=== PATIENT | male | born 1960 | race Caucasian/White ===

== ENCOUNTER 2018-03-05 09:00 | Outpatient (RCR) | payer OTHER, SELFPAY ==
--- NOTE | 2018-01-24 11:51 | HP.PTEVAL ---
Patient's Visit Information LINDA HARRIS is a 57 year old M referred to Physical Therapy by Out of Town Doctor with a diagnosis of Ankle Fusion. Date of Evaluation: 01/24/18 Physical Therapist: Maria Teresa Lopez - Visit Plan Frequency: 2x /Week Duration: 4 Weeks Plan: Focus on propriocetion, strength and core s/s. - Subjective Subjective: Right ankle shattered it 30 years- Dr. Tucker fixed it. Surgery Oct 12- fused it- was in a cast for 6 weeks- non weight bearing- then into a boot non weight bearing until 8 weeks. Cheated before then but was released 01/17 to put weight on it. MD told him to be in [facility] and wear his $300.00 insoles. When sitting he is painfree but starts to ache after a long period of sitting. Has been on/off pain meds due to the ankle for years. Can be painfree with pain meds. Was on it a lot yesterday. 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 Goes back to see March 22. Pain is located throughout the entire foot. Describes pain as dull and achy but by the end of the day it can be hard to walk. N/T in the toes but it changes with swelling. Want so to push the foot and get it back to normal. Pain is the only limiting factor- MD told him to beat the hell out of it. Sleep: disturbed but doesn't wake up PMHx:HTN Meds: [place]arting, triglyde, tramadol and tylenol as needed - Objective Posture: good. Gait: antalgic- decreased stance on the right LE-poor heel/toe pattern. Girth: 55.5 cm fig 4-29 cm mall-23 cm mets. HR/TR: able but decreased TR. Balance: 5 sec then requires UE A. ROM: df: neutral, PF: 5 degrees, Ever: 20 degrees Inv: 30 degrees. Strength: 4+/5 throughout LE Core: fair - Goals Goal 1:: Patient will be I with HEP and progression Goal Time Frame: 4-6 Weeks Goal 2:: Patient will demo 30 sec SLS Goal Time Frame: 4-6 Weeks Goal 3:: Patient will report 2/10 pain for 1 week Goal Time Frame: 4-6 Weeks Goal 4:: Patient will demo 5/5 strength in LE Goal Time Frame: 4-6 Weeks - Rehabilitation Potential Physical Therapy Diagnosis: Patient presents with hypomobility- he has decreased ROM, strength and muscular endurance leading to poor balance and incresaed pain with ADL's. Rehabilitation Potential: Good - Anticipated Interventions Patient/Client Instruction: Educate patient on: Benefits of Fitness Program For the Purpose of:: To improve muscle performance and motor function Therapeutic Exercise to Include: Strength training, Balance training, Agility training, Body mechanics, Postural training, Flexibilty training, Gait and locomotor training, Dynamic Lumbar Stabilization For the Purpose of:: To improve muscle performance and motor function Thank you for the opportunity to evaluate your patient. For Medicare and Medicare HMO plans, please review the plan of care and approve it. It will need to be FAXED BACK to us at [phone] for Medicare purposes. Please let me know if there are questions or concerns regarding this plan of care. Physician Signature: Date:
--- NOTE | 2018-02-21 11:00 | HP.PTREVAL_ITS ---
Out of Town Doctor, It has been my pleasure to treat LINDA HARRIS over the last 8 visits for Ankle Fusion. Please see the progress note below for an update on the physical therapy plan of care! Subjective: Patient reports that the ankle is getting better but its still not there yet. He feels hs ie 50-60% better. He is still challenged with every day activities such as going down stairs. He does them one at a time. He goes back to the MD March 21. He feels that he needs to get stronger in the ankle/ foot. Objective/Function: Posture: good. Gait: antalgic- decreased stance on the right LE-poor heel/toe pattern. Stairs: asc is able to perform reciprocally- with 1 HR- does use mild UE A. Desc he can do reciprocally but his technique is poor- descends without control with 2 UE- HR/TR: able but decreased TR- weight shifts to the left. Balance: 10 sec then requires UE A. ROM: df: 2 degrees, PF: 10 degrees, Ever: 20 degrees Inv: 30 degrees. Strength: 4+/5 throughout LE Core: fair Plan Plan: Continue with POC Goals Goal 1:: Patient will be I with HEP and progression Goal Time Frame: 4-6 Weeks Goal Progress: Progressing Goal 2:: Patient will demo 30 sec SLS Goal Time Frame: 4-6 Weeks Goal Progress: Progressing Goal 3:: Patient will report 2/10 pain for 1 week Goal Time Frame: 4-6 Weeks Goal Progress: Progressing Goal 4:: Patient will demo 5/5 strength in LE Goal Time Frame: 4-6 Weeks Goal Progress: Progressing Anticipated Interventions Patient/Client Instruction: Educate patient on: Benefits of Fitness Program For the Purpose of:: To improve muscle performance and motor function Therapeutic Exercise to Include: Strength training, Balance training, Agility training, Body mechanics, Postural training, Flexibilty training, Gait and locomotor training, Dynamic Lumbar Stabilization For the Purpose of:: To improve muscle performance and motor function Please do not hesitate to contact me at [phone] by phone or Fax: if you have questions or concerns regarding this new plan of care! Sincerely, Maria Teresa Lopez
--- NOTE | 2018-05-22 10:48 | HP.PT.NRP ---
HP - Discharge Summary (1) - Patient Information LINDA HARRIS was seen in my office for initial evaluation on 01/24/18. The following Plan of Care was established for this patient: Initial Frequency: 2x /Week Initial Duration: 4 Weeks - Anticipated Interventions Patient/Client Instruction: Educate patient on: Benefits of Fitness Program For the Purpose of:: To improve muscle performance and motor function Therapeutic Exercise to Include: Strength training, Balance training, Agility training, Body mechanics, Postural training, Flexibilty training, Gait and locomotor training, Dynamic Lumbar Stabilization For the Purpose of:: To improve muscle performance and motor function This patient was last seen in our office . Pertinent comments regarding their Physical therapy will appear below: Patient has returned to work- Patient has not attended physical therapy in over 8 weeks. At this time patient is appropriate for d/c and return to MD as needed. At this point I will be discontinuing this patient from physical therapy. I would be happy to see this patient again in the future if found appropriate by the physician. Thank you! Maria Teresa Lopez
== END 2018-03-05 19:00 | disposition home or self-care (01) ==
LOC: PT 09:00
PROVIDERS: Family Provider Family Medicine; PCP Family Medicine
DX: M25.371 Other instability, right ankle (principal); M84.361D Stress fracture, right tibia, subsequent encounter for fracture with routine healing; M19.071 Primary osteoarthritis, right ankle and foot; T84.498D Other mechanical complication of other internal orthopedic devices, implants and grafts, subsequent encounter
CPT/HCPCS: 97110; 97162; 97164

== ENCOUNTER → 2018-07-24 15:08 | Outpatient (CLI) | payer OTHER, SELFPAY ==
[2018-07-24 16:33] LABS: PSA,Total- Diagnostic 3.85 ng/mL (0.0-4.0)
--- OUTSIDE RECORDS SUMMARY | 2018-09-19 07:41 | XMS RPT_ITS ---
:1960 Author Organization OHIP Care Team Providers Name Role Phone ALFONSO EMERSON Attending Unavailable ALFONSO EMERSON Referring Unavailable ALFONSO EMERSON Attending Unavailable ALFONSO EMERSON Referring Unavailable ALFONSO EMERSON Referring Unavailable ALFONSO EMERSON Referring Unavailable ALFONSO EMERSON Referring Unavailable FLOYD DARNELL Referring Unavailable ALFONSO EMERSON Attending Unavailable ALFONSO EMERSON Referring Unavailable CARLI CHILDS (DUST COLLECTOR) Attending Unavailable ALFONSO EMERSON Referring Unavailable CRYSTAL DAVIS Admitting Unavailable CRYSTAL DAVIS Attending Unavailable CARLI CHILDS (DUST COLLECTOR) Referring Unavailable ALFONSO EMERSON Attending Unavailable ALFONSO EMERSON Referring Unavailable CARLI CHILDS (DUST COLLECTOR) Referring Unavailable SHELLI MORENO (PT) Attending Unavailable Samuel BARKLEY (PA-C) Referring Unavailable FLOYD DARNELL Attending Unavailable FLOYD DARNELL Referring Unavailable ALFONSO EMERSON Primary Care Unavailable DOCTOR, OUT OF TOWN Attending Unavailable Alfonso Emerson Primary Care Unavailable BEVERLY REES Referring Unavailable Nghia Stoddard Attending Unavailable Alfonso Emerson Primary Care Unavailable Nghia Stoddard Referring Unavailable PROBLEMS PROBLEMS DATE TYPE CONDITION / CODE ATTENDING STATUS SOURCE Unknown R97.20 - Elevated Richi Nghia Active [facility] 8 prostate specific [facility] antigen [PSA] / Hospital R97.20(ICD-10) Repository Active Mixed hyperlipidemia / NA Active [facility] E78.2(ICD-10) Clinic Main [place] Repository Active Nocturia / NA Active [facility] R35.1(ICD-10) Clinic Main [place] Repository Active Encounter for NA Active [facility] screening for other Clinic Main viral diseases / [place] Z11.59(ICD-10) Repository Active Low back pain / NA Active [facility] M54.5(ICD-10) Clinic Main [place] Repository Active Change in bowel habit SUSAN Active [facility] / R19.4(ICD-10) CRYSTAL [facility] Main [place] Repository Unknown M25.371 - Other DOCTOR, OUT OF Active [facility] 8 instability, right TOWN Community ankle / Hospital M25.371(ICD-10) Repository Active Chronic kidney NA Active [facility] 8 disease, stage 3 Clinic Main (moderate) / [place] N18.3(ICD-10) Repository Active Disorder of kidney and NA Active [facility] 8 ureter, unspecified / Clinic Main N28.9(ICD-10) [place] Repository Active Contact with and NA Active [facility] 8 (suspected) exposure Clinic Main to asbestos / [place] Z77.090(ICD-10) Repository Active Essential (primary) NA Active [facility] hypertension / Clinic Main I10(ICD-10) [place] Repository Admitting Other instability, BERLET, Active [place] [address] diagnosis right ankle / [place] Repository M25.371(ICD-10) [place] Active Cervicalgia / SHELLI MORENO Active [facility] 7 M54.2(ICD-10) (PT) Clinic Main [place] Repository Active Unspecified SHELLI MORENO Active [facility] 7 temporomandibular (PT) Clinic Main joint disorder, [place] unspecified side / Repository M26.609(ICD-10) PROCEDURES PROCEDURES No Procedure Records FoundRESULTS RESULTS PSA,TOTAL- DIAGNOSTIC Collected: 07/24/2018 Status: F Source: [place] 3:[address] [facility] REPOSITORY TYPE CODE TESTS RESULT OUT OF RANGE REFERENCE UNITS LAB L501.9940 0.0-4.0 ng/mL PSA, Normal DIAGNOSTIC 3.85 Result Comment: This test was performed using the TPSA assay method for the [employer] chemistry system. Values obtained with different assay methods cannot be used interchangably. When changing PSA assays in the course of monitoring a patient, additional sequential testing should be carried out to confirm baseline values. Performed By: #### L501.9940 #### [facility] [address] [place], [address] COMP METABOLIC PANEL Collected: 06/15/2018 Status: F Source: [place] 7:39 AM [facility] REPOSITORY TYPE CODE TESTS RESULT OUT OF REFERENCE UNITS RANGE LAB TP 6.3-8.0 g/dL Protein, Total 7.1 LAB ALB 3.9-4.9 g/dL Albumin 4.6 LAB CA 8.5-10.2 mg/dL Calcium, Total 9.5 LAB TBIL 0.2-1.3 mg/dL Bilirubin, Total 0.9 LAB ALKP 38-113 U/L Alkaline Phosphatase 39 LAB AST 14-40 U/L AST 19 LAB GLU 74-99 mg/dL Glucose 99 Result Comment: The [place] Diabetes Association (ADA) provides guidance for cutoff values for fasting glucose and random glucose. The ADA defines fasting as no caloric intake for at least 8 hours. Fas ting plasma glucose results between 100 to 125 mg/dL indicate increased risk for diabetes (prediabetes). Fasting plasma glucose results greater than or equal to 126 mg/dL meet the criteria for diagnosis of diabetes. In the absence of unequivocal hyperglycemia, results should be confirmed by repeat testing. In a patient with classic symptoms of hyperglycemia or hyperglycemic crisis, random plasma glucose results greater than or equal to 200 mg/dL meet the criteria for diagnosis of diabetes. Reference: Standards of Medical Care in Diabetes 2016, [place] Diabetes Association. Diabetes Care. 2016.39(Suppl 1). LAB BUN 9-24 mg/dL BUN 20 LAB CRET 0.73-1.22 mg/dL Creatinine 1.18 LAB NA 136-144 mmol/L Sodium 143 LAB K 3.7-5.1 mmol/L Potassium 4.0 LAB CL 97-105 mmol/L Chloride 105 LAB CO2 22-30 mmol/L CO2 26 LAB AGAP 9-18 mmol/L Anion Gap 12 LAB ALT 10-54 U/L ALT 22 LAB GFRAA eGFR- Amer. >60 LAB GFRNAA . eGFR-All Other Races >60 Result Comment: eGFR (Estimated GFR) Units of measure: mL/min/1.73 meters squared eGFR is derived from the reexpressed MDRD Study equation using the following parameters: serum creatinine, age, gender and race. The creatinine assay has been calibrated to be traceable to IDMS. An eGFR <60 mL/min/1.73m2 for >3 months is consistent with chronic kidney disease. Refer to KDOQI guidelines for clinical interpretation. In patients with unstable renal function, e.g. those with acute kidney injury, the eGFR may not accurately reflect actual GFR. Performed By: #### CMP, LIPB, TSH, PSA, AHCV #### [facility] [address] [place], [place] [address] LIPID PANEL, BASIC Collected: 06/15/2018 Status: F Source: [place] 7:39 AM [facility] REPOSITORY TYPE CODE TESTS RESULT OUT OF REFERENCE UNITS RANGE LAB CHOL <200 mg/dL Cholesterol High 213 Result Comment: <200 mg/dL, Desirable 200-239 mg/dL, Borderline high >239 mg/dL, High LAB TRIGLY <150 mg/dL Triglyceride 148 Result Comment: <150 mg/dL, Normal 150-199 mg/dL, Borderline high 200-499 mg/dL, High >499 mg/dL, Very high LAB HDL >39 mg/dL HDL-Cholesterol 43 Result Comment: 40-59 mg/dL, Acceptable >59 mg/dL, High: Negative risk factor for coronary heart disease <40 mg/dL, Low: Positive risk factor for coronary heart disease LAB LDL <100 mg/dL LDL-Cholesterol High 140 Result Comment: <100 mg/dL, Optimal 100-129 mg/dL, Near optimal/above optimal 130-159 mg/dL, Borderline high 160-189 mg/dL, High >189 mg/dL, Very high Secondary prevention optimal LDL Cholesterol levels are recommended to be < 70 mg/dL LAB NONHDL <130 mg/dL Non HDL High Cholesterol 170 Result Comment: <130 mg/dL, Optimal 130-159 mg/dL, Near optimal/above optimal 160-189 mg/dL, Borderline high 190-219 mg/dL, High >219 mg/dL, Very high Secondary prevention optimal non HDL Cholesterol levels are recommended to be < 100 mg/dL LAB FT hrs Fasting Time 12 LAB VLDL <30 mg/dL High VLDL Cholesterol 30 LAB TCHDL <5.10 TC:HDL Ratio 4.95 LAB LDLHDL <2.54 High LDL:HDL Ratio 3.26 Result Comment: Reference: 1. National Cholesterol Education Program ATP III Guideline At-A-Glance Quick Desk Reference: National Heart, Lung, and Blood [place]. National Institutes of Health. 2001: NIH Publication No. 01-3305. 2. An International Atherosclerosis Society position paper: global recommendations for the management of dyslipidemia: executive summary, Atherosclerosis. 2014: 232(2):410-413. Performed By: #### CMP, LIPB, TSH, PSA, AHCV #### [facility] [address] [place] [address] TSH Collected: 06/15/2018 Status: F Source: [place] 7:39 AM [facility] REPOSITORY TYPE CODE TESTS RESULT OUT OF RANGE REFERENCE UNITS LAB TSH 0.400-5.500 uU/mL TSH 1.630 Performed By: #### CMP, LIPB, TSH, PSA, AHCV #### [facility] [address] [place] [address] PSA, DIAGNOSTIC Collected: 06/15/2018 Status: F Source: [place] 7:39 AM [facility] REPOSITORY TYPE CODE TESTS RESULT OUT OF REFERENCE UNITS RANGE LAB PSA 0.00-2.59 ng/mL PSA, High Diagnostic 4.59 Result Comment: Total PSA test methodology used is the Electrochemiluminescence Immunoassay. For an individual patient, the significance of a PSA level should be interpreted in a broad clinical context, including age, race, family history, digital rectal exam, prostate size, results of prior te sting (prostate biopsy, free PSA, PCA3), and use of 5-alpha reductase inhibitors. Considering the high incidence of asymptomatic cancer in the general population that may not pose an ultimate risk to a patient, the decision to recommend urological evaluation or prostate biopsy should be individualized after consideration of all these factors. REFERENCE: Pako Holguin M.D., M.P.H., Johnnie Carter M.D., Ph.D., Alfonso Tillman M.D., Karla Zayas M.P.H., Michelle Arias, ScWanderD. Effect of Verification Bias on Screening for Prostate Cancer by Measurement of Prostatic Specific Antigen. N Engl J Med 2003,349:335-42. Performed By: #### CMP, LIPB, TSH, PSA, AHCV #### [facility] [employer] [address], [place] [address] HEPATITIS C AB IA Collected: 06/15/2018 Status: F Source: [place] 7:39 AM [facility] REPOSITORY TYPE CODE TESTS RESULT OUT OF REFERENCE UNITS RANGE LAB AHCV Negative Hepatitis C Ab Negative IA Performed By: #### CMP, LIPB, TSH, PSA, AHCV #### [facility] [employer] [address] [place], [place] [address] XR LUMBAR 3V Observed: 05/18/2018 Status: F Source: [place] AP/LAT/L5-S1 9:30 AM [facility] REPOSITORY * * *Final Report* * * DATE OF EXAM: May 18 2018 9:30AM WOX [id number] - XR LUMBAR 3V AP/LAT/L5-S1 / PROCEDURE REASON: Low back pain * * * * Physician Interpretation * * * * Clinical information: Low back pain AP and lateral views of the lumbar spine were obtained. No fracture is identified. Alignment is satisfactory. Vertebral body heights are maintained. Mild disc space narrowing at L4-5 and L5-S1. Minimal multilevel spurring most pronounced within the lower lumbar spine. Facet hypertrophy of the lower dorsal spine. No lytic or blastic lesions are seen. IMPRESSION: Mild degenerative changes of the lower lumbar spine. Wire Brusher: [place] Transcribe Date/Time: May 18 2018 2:45P Dictated by : EMMANUEL HESTER MD This examination was interpreted and the report reviewed and electronically signed by: EMMANUEL HESTER MD on May 18 2018 2:45PM EST [id number] Observed: 05/18/2018 Status: COMPLETED Source: [place] 9:21 AM [facility] [place] REPOSITORY HNO ID: [id number] Author: Suzette Hicks (Rt) Eamon Mott Service: (none) Author Type: Mold Closer Type: Progress Notes Filed: 05/18/2018 9:30 AM Note Text: Radiology Service Progress Note PATIENT NAME: Linda Harris DATE OF SERVICE: May 18, 2018 TIME: 9:21 AM PATIENT IDENTITY VERIFICATION COMPLETED USING TWO (2) METHODS: Patient confirmed name verbally and Date of . PATIENT GENDER DATA: Male PATIENT RELEVANT IMPLANT DATA REVIEWED: Not Applicable RADIOLOGY DEPARTMENT: General X-ray: Exam(s) Completed: Spine X-Ray(s): Lumbar AP / LAT / L5-S1 PERIPHERAL IV DATA: Not applicable SIGNED BY: RT Shazia May 18, 2018 9:21 AM PROGRESS Observed: 05/18/2018 Status: COMPLETED Source: [place] 8:44 AM [facility] REPOSITORY HNO ID: [id number] Author: Alfonso Emerson Service: (none) Author Type: Physician Type: Progress Notes Filed: 05/18/2018 9:53 AM Note Text: Patient presents with: Back Pain Knee Pain: left HPI: Patient presents today for office visit for an acute visit. Nursing Notes: Ana Ash Ma 05/18/2018 8:25 AM Signed Patient complains of: back pain . 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 Has been more active. No radiation of symptoms down the leg. Hurts to sit for a long time etc. No numbness or weakness. Has been doing back exercises. No issues controlling bowel or bladder. His ankle is doing better. Also complains of left knee pain. Still popping. May want to consider seeing ortho down the road. Has been there at least a year. HYPERTENSION:bp is slightly up today. HLD:no myalgias. CKD:better on last recheck. MEDICATIONS: Current Outpatient Prescriptions: gabapentin (NEURONTIN) 100 mg capsule Take 1-3 capsules by mouth at bedtime as needed (pain) for up to 60 days. traMADol (ULTRAM) 50 mg tablet Take 50 mg by mouth every 6 hours as needed. fenofibrate nanocrystallized (TRICOR) 145 mg tablet TAKE 1 TABLET DAILY losartan-hydrochlorothiazide (HYZAAR) 50-12.5 mg per tablet TAKE 1 TABLET DAILY No current facility-administered medications for this visit. ALLERGIES: ALLERGIES No Known Allergies PAST MEDICAL HISTORY Diagnosis Date - Acute gastritis without mention of hemorrhage - Ankle pain, right crush injury right ankle with complex tib-fib fracture: chronic pain - Back pain intermittent low back pain - Benign neoplasm of colon - Esophagitis no symptoms s/p dilitation - History of esophageal stricture 11/24/2008 - Hyperlipidemia - Hypertension with white coat effect - Panic attack heart racing, negative stress test 08/04 PAST SURGICAL HISTORY Procedure Laterality Date - ANKLE SURGERY HX 10/12/2017 - COLONOSCOP W/ OR W/O [facility] SPEC 11/24/08 hyperplastic polyp, repeat due 2018 - COLONOSCOP W/ OR W/O [facility] SPEC 03/13/2018 two small adenomatous polyps, repeat in 5 years - EGD W/O OR W/BRUSH/WASH 10/29/01 EGD - ESOPH W/O [facility] SPEC BALLOON DIL 11/24/08 EGD stricture dilated - OPEN RX ANKLE DISLOCATN+FIXATN 1987 ORIF Ankle right - PAST SURGICAL HISTORY OF 11/26 excision = pyogenic granuloma - PAST SURGICAL 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 Two children from first marriage. Lives with girlfriend. Rides dirt bike, jet ski, sprint cars. Reviewed current medications, allergies, past medical history, surgical history, family history and social history today. REVIEW OF SYSTEMS All other reviewed and negative other than HPI. HEALTH MAINTENANCE: Reviewed health maintenance issues today and recommended the following in detail. Getting flu shot at work. VITALS: BP 138/86 Pulse 88 Resp 20 Last 4 Encounter Wt Readings: Date: Wt: 03/02/2018 88 kg (194 lb 0.1 oz) 03/02/2018 88 kg (194 lb) 02/07/2018 87.5 kg (193 lb) 09/28/2017 91.2 kg (201 lb) PHYSICAL EXAMINATION: General appearance: Well appearing, alert, in no acute distress, well-hydrated, well nourished. Skin: Skin color, texture, turgor normal, no suspicious rashes or lesions BACK: Normal curvature of spine. No spine tenderness. Straight leg test negative. Deep tendon reflexes 2+/4 at patellas. Normal lower extremity strength. Lungs: Lungs clear to auscultation. No wheezing, rhonchi, rales Heart: RRR without murmur, gallop, or rubs. No ectopy Extremities: No deformities, edema, skin discoloration, clubbing or cyanosis. Good capillary refill. Musculoskeletal: No joint swelling, deformity, or tenderness Peripheral pulses: Normal Knee: no effusion. No instability. Some crepitus of left knee. No redness or warmth. ASSESSMENT/PLAN: 1. Lumbar pain - ICD9: 724.2, ICD10: M54.5 (primary diagnosis) Mechanical low back pain - Patient given instructions use of medications as ordered and avoiding opiates - Follow up in 1 weeks or sooner if symptoms persist or worsen - XR LUMBAR GENERAL 3V AP/LAT/L5-S1 - PREDNISONE 10 MG TABLET - TIZANIDINE 4 MG TABLET 2. Essential hypertension - ICD9: 401.9, ICD10: I10 - good control - Continue current medication(s) - Encouraged dietary sodium restriction/DASH diet - Goal of BP <140/90 3. Mixed hyperlipidemia - ICD9: 272.2, ICD10: E78.2 - to be determined upon return of lab results - Continue current medication. - COMP METABOLIC PANEL - LIPID PANEL BASIC 4. Acute pain of left knee - ICD9: 719.46, ICD10: M25.562 - wants to wait to address. See if steroids help 5. Need for hepatitis C screening test - ICD9: V73.89, ICD10: Z11.59 - HEP C AB [place] BLOOD 6. Nocturia - ICD9: 788.43, ICD10: R35.1 - will recheck psa. Discussed risks and benefits. Had previously been referred to urology - PSA/PROSTSPECAG DIAG Alfonso Emerson MD RTO in six months and prnWander SCOTT Observed: 05/18/2018 Status: COMPLETED Source: [place] 8:20 AM [facility] REPOSITORY Office Visit (FAMPWS) LINDA HARRIS ([id number]) 1960 M Date Time Provider Department 05/18/18 8:20 AM [facility] During your visit today, we recorded the following information about you: Pulse Respiration Blood pressure 88/minute 20/minute 138/86 Ana Ash Ma 05/18/2018 8:25 AM Signed Patient complains of: back pain . 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 Nursing Notes: Ana Ash Ma 05/18/2018 8:25 AM Signed Patient complains of: back pain . 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 Has been more active. No radiation of symptoms down the leg. Hurts to sit for a long time etc. No numbness or weakness. Has been doing back exercises. No issues controlling bowel or bladder. His ankle is doing better. Also complains of left knee pain. Still popping. May want to consider seeing ortho down the road. Has been there at least a year. HYPERTENSION:bp is slightly up today. HLD:no myalgias. CKD:better on last recheck. MEDICATIONS: Current Outpatient Prescriptions: gabapentin (NEURONTIN) 100 mg capsule Take 1-3 capsules by mouth at bedtime as needed (pain) for up to 60 days. traMADol (ULTRAM) 50 mg tablet Take 50 mg by mouth every 6 hours as needed. fenofibrate nanocrystallized (TRICOR) 145 mg tablet TAKE 1 TABLET DAILY losartan-hydrochlorothiazide (HYZAAR) 50-12.5 mg per tablet TAKE 1 TABLET DAILY No current facility-administered medications for this visit. ALLERGIES: ALLERGIES No Known Allergies PAST MEDICAL HISTORY Diagnosis Date - Acute gastritis without mention of hemorrhage - Ankle pain, right crush injury right ankle with complex tib-fib fracture: chronic pain - Back pain intermittent low back pain - Benign neoplasm of colon - Esophagitis no symptoms s/p dilitation - History of esophageal stricture 11/24/2008 - Hyperlipidemia - Hypertension with white coat effect - Panic attack heart racing, negative stress test 08/04 PAST SURGICAL HISTORY Procedure Laterality Date - ANKLE SURGERY HX 10/12/2017 - COLONOSCOP W/ OR W/O [facility] SPEC 11/24/08 hyperplastic polyp, repeat due 2018 - COLONOSCOP W/ OR W/O [facility] SPEC 03/13/2018 two small adenomatous polyps, repeat in 5 years - EGD W/O OR W/BRUSH/WASH 10/29/01 EGD - ESOPH W/O [facility] SPEC BALLOON DIL 11/24/08 EGD stricture dilated - OPEN RX ANKLE DISLOCATN+FIXATN 1987 ORIF Ankle right - PAST SURGICAL HISTORY OF 11/26 excision = pyogenic granuloma - PAST SURGICAL HISTORY 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 Two children from first marriage. Lives with girlfriend. Rides dirt bike, jet ski, sprint cars. Reviewed current medications, allergies, past medical history, surgical history, family history and social history today. REVIEW OF SYSTEMS All other reviewed and negative other than HPI. HEALTH MAINTENANCE: Reviewed health maintenance issues today and recommended the following in detail. Getting flu shot at work. VITALS: BP 138/86 Pulse 88 Resp 20 Last 4 Encounter Wt Readings: Date: Wt: 03/02/2018 88 kg (194 lb 0.1 oz) 03/02/2018 88 kg (194 lb) 02/07/2018 87.5 kg (193 lb) 09/28/2017 91.2 kg (201 lb) PHYSICAL EXAMINATION: General appearance: Well appearing, alert, in no acute distress, well-hydrated, well nourished. Skin: Skin color, texture, turgor normal, no suspicious rashes or lesions BACK: Normal curvature of spine. No spine tenderness. Straight leg test negative. Deep tendon reflexes 2+/4 at patellas. Normal lower extremity strength. Lungs: Lungs clear to auscultation. No wheezing, rhonchi, rales Heart: RRR without murmur, gallop, or rubs. No ectopy Extremities: No deformities, edema, skin discoloration, clubbing or cyanosis. Good capillary refill. Musculoskeletal: No joint swelling, deformity, or tenderness Peripheral pulses: Normal Knee: no effusion. No instability. Some crepitus of left knee. No redness or warmth. ASSESSMENT/PLAN: 1. Lumbar pain - ICD9: 724.2, ICD10: M54.5 (primary diagnosis) Mechanical low back pain - Patient given instructions use of medications as ordered and avoiding opiates - Follow up in 1 weeks or sooner if symptoms persist or worsen - XR LUMBAR GENERAL 3V AP/LAT/L5-S1 - PREDNISONE 10 MG TABLET - TIZANIDINE 4 MG TABLET 2. Essential hypertension - ICD9: 401.9, ICD10: I10 - good control - Continue current medication(s) - Encouraged dietary sodium restriction/DASH diet - Goal of BP <140/90 3. Mixed hyperlipidemia - ICD9: 272.2, ICD10: E78.2 - to be determined upon return of lab results - Continue current medication. - COMP METABOLIC PANEL - LIPID PANEL BASIC 4. Acute pain of left knee - ICD9: 719.46, ICD10: M25.562 - wants to wait to address. See if steroids help 5. Need for hepatitis C screening test - ICD9: V73.89, ICD10: Z11.59 - HEP C AB [place] BLOOD 6. Nocturia - ICD9: 788.43, ICD10: R35.1 - will recheck psa. Discussed risks and benefits. Had previously been referred to urology - PSA/PROSTSPECAG DIAG Alfonso Emerson MD RTO in six months and prn. Alfonso Emerson MD 05/18/2018 9:08 AM Signed Please report to the lab fasting at your convenience and have the labs that were ordered today during your visit. You will be contacted either by a letter, a call from a staff member or by my chart once we have had the chance to review your results. Please call us in one week after having them drawn if you have not heard from us. Referring Provider: SELF [[id number]] Allergies As of Date: 05/18/2018 (No Known Allergies) Date Reviewed: 03/13/2018 Reviewed by: Amelia Field) LENA Quintero - Fully Assessed Reason for Visit: Back Pain [12] Knee Pain [132] Cmt: left Reason For Visit History Recorded Primary Visit Diagnosis:Lumbar pain [M54.5] Other Visit Diagnoses:Essential hypertension [I10] Mixed hyperlipidemia [E78.2] Acute pain of left knee [M25.562] Need for hepatitis C screening test [Z11.59] Nocturia [R35.1] Order(s):PSA/PROSTSPECAG DIAG [SQPSA] Order #: [id number] FUTURE COMP METABOLIC PANEL [SQCMP] Order #: [id number] FUTURE LIPID PANEL BASIC [SQLIPB] Order #: [id number] FUTURE HEP C AB IA BLOOD [SQAHCV] Order #: [id number] FUTURE XR LUMBAR GENERAL 3V AP/LAT/L5-S1 [6307783] Order #: [id number] FUTURE predniSONE (DELTASONE) 10 mg tabletTake 4 tabs daily x 3 days, then 3 tabs x 3 days, 2 tabs x 3 days, then 1 tab x3 days with food.Disp: 30 tabletRfl: 0 tiZANidine (ZANAFLEX) 4 mg tabletTake 1 tablet by mouth every 6 hours as needed.Disp: 10 tabletRfl: 0 Prescriptions as of 05/18/2018 Sig: PREDNISONE 10 MG TABLET Take 4 tabs daily x 3 days, t* TIZANIDINE 4 MG TABLET Take 1 tablet by mouth every * GABAPENTIN 100 MG CAPSULE Take 1-3 capsules by mouth at* TRAMADOL 50 MG TABLET Take 50 mg by mouth every 6 h* FENOFIBRATE NANOCRYSTALLIZED * TAKE 1 TABLET DAILY LOSARTAN 50 MG-HYDROCHLOROTHI* TAKE 1 TABLET DAILY Problem List As Of Date 05/18/2018 Noted Resolved Anxiety state, unspecified [F41.1] INVALID FOR* Asbestos exposure [Z77.090] INVALID FOR* More... Sciatica [M54.30] INVALID FOR* Mixed hyperlipidemia [E78.2] INVALID FOR* ELEV BL PRES W/O HYPERTN [R03.0] INVALID FOR*08/26/2008 SPLENIC NODULE [D73.9] INVALID FOR* More... Chest pain, unspecified [R07.9] INVALID FOR*09/28/2017 More... PAIN JOINT, ANKLE [M25.579] INVALID FOR*04/16/2015 HYPERTENSION NOS [I10] INVALID FOR*01/17/2009 Special screening for malignant neoplasms, colo*INVALID FOR*09/28/2017 Benign neoplasm of colon [D12.6] INVALID FOR* Congenital tracheoesophageal fistula, esophagea*INVALID FOR* Elevated Blood Pressure Reading without Diagnos*INVALID FOR*07/18/2009 Hypertension [I10] INVALID FOR* More... Prepatellar bursitis [M70.40] INVALID FOR*07/10/2010 Routine physical examination [Z00.00] INVALID FOR*10/12/2015 CRI (chronic renal insufficiency) [N18.9] INVALID FOR*01/14/2011 Narcotic addiction [F11.20] INVALID FOR*04/01/2011 Panic attack [F41.0] Prostatitis [N41.9] INVALID FOR* BPH (benign prostatic hyperplasia) [N40.0] INVALID FOR* Pain of male genitalia [N50.89] INVALID FOR* Arthralgia [M25.50] INVALID FOR* Ankle pain, right [M25.571] INVALID FOR* More... 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 Other instructions from your clinician: Please report to the lab fasting at your convenience and have the labs that were ordered today during your visit. You will be contacted either by a letter, a call from a staff member or by my chart once we have had the chance to review your results. Please call us in one week after having them drawn if you have not heard from us. Visit Notes: >> Ana Ash Cheryl MonMay 18, 2018 8:18 AM Status: Signed Patient complains of: back pain . 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 TIZANIDINE 4 MG TABLET 10 t* 0 05/18/2018 Route: ORAL Sig: Take 1 tablet by mouth every 6 hours as needed. Disposition: Return in about 6 months (around 11/15/2018). Follow-up and Disposition History Recorded Letter Text Alfonso Emerson MD [address], [place] [address] 05/18/2018 TO WHOM IT MAY CONCERN: This is to confirm that Linda Harris had an appointment and was seen at the [facility] in the Department of Family Medicine by Alfonso Emerson MDon 05/18/2018 and may return to work on 05/21/18. Sincerely yours, Alfonso Emerson MD Encounter Status:Closed by ALFONSO EMERSON MD on 05/18/18 NURSING PROG Observed: 03/13/2018 Status: COMPLETED Source: [place] 9:18 AM [facility] REPOSITORY HNO ID: [id number] Author: Amelia (Rn) LENA Quintero Service: (none) Author Type: Registered Nurse Type: Nursing Progress Note Filed: 03/13/2018 9:18 AM Note Text: Patient did not experience a fall prior to discharge. Patient did not experience a burn prior to discharge. Amelia Quintero RN PT ED Observed: 03/13/2018 Status: COMPLETED Source: [place] 9:10 AM [facility] REPOSITORY HNO ID: [id number] Author: Amelia Quintero RN Service: (none) Author Type: Registered Nurse Type: Patient Education Filed: 03/13/2018 9:11 AM Note Text: POST OP LEARNING RESPONSE INSTRUCTION PROVIDED TO: Patient and Significant Other METHOD OF INSTRUCTION: Individual instruction Written instruction - handouts Verbal instruction PATIENT / FAMILY RESPONSE: Verbalizes understanding of: INFECTION MANAGEMENT-Signs and symptoms of an infection and importance of contacting the physician MEDICAL REGIMEN-Importance of following prescribed medical regimen PAIN MANAGEMENT-Effective strategies to manage pain in addition to pain medication PHYSICAL RESTRICTIONS-Physical restrictions and recommendations after discharge from the hospital POST-PROCEDURE INSTRUCTIONS-Correct actions to take to reduce post procedure complications PATIENT SAFETY PRINCIPLES SYMPTOM MANAGEMENT-Correct actions to take to manage symptoms associated with his/her disease/illness WORSENING CONDITION-Signs and symptoms of a worsening condition that warrant a call to the physician FOLLOW-UP PLAN: Patient instructed to call with any further issues Follow up phone call. Contact information given. SUPPLEMENTAL MATERIAL: AVS REFERRAL (RECOMMENDATION): None Electronically Signed By: Amelia Quintero RN In Department: AMBULATORY SURGERY NURSING PROG Observed: 03/13/2018 Status: COMPLETED Source: [place] 9:00 AM [facility] REPOSITORY HNO ID: [id number] Author: Amelia Quintero RN Service: (none) Author Type: Registered Nurse Type: Nursing Progress Note Filed: 03/13/2018 9:00 AM Note Text: Patient sitting up in bed tolerating snack and drink without problems. Amelia Quintero RN NURSING PROG Observed: 03/13/2018 Status: COMPLETED Source: [place] 8:30 AM [facility] REPOSITORY HNO ID: [id number] Author: Amelia Quintero RN Service: (none) Author Type: Registered Nurse Type: Nursing Progress Note Filed: 03/13/2018 8:35 AM Note Text: Patient arrived to PACU, on left side. Resting comfortably. Patient's abdomen slightly distended. Warm blanket provided to abdomen and encouraged to pass flatus. Amelia Quintero RN NURSING PROG Observed: 03/13/2018 Status: COMPLETED Source: [place] 8:27 AM [facility] REPOSITORY HNO ID: [id number] Author: Shaina Almanza RN Service: Nursing Author Type: Registered Nurse Type: Nursing Progress Note Filed: 03/13/2018 8:27 AM Note Text: Patient did not experience a fall within the Intraoperative area. Patient did not experience a burn within the Intraoperative area. Shaina Almanza RN NURSING PROG Observed: 03/13/2018 Status: COMPLETED Source: [place] 7:57 AM [facility] REPOSITORY HNO ID: [id number] Author: Amelia Quintero RN Service: (none) Author Type: Registered Nurse Type: Nursing Progress Note Filed: 03/13/2018 7:57 AM Note Text: Patient did not experience a fall within the Preoperative area. Patient did not experience a burn within the Preoperative area. [facility] PRE-OP NURSING HAND OFF NOTE SBAR Hand off given to Shaina Almanza RN. Hand off was communicated verbally and at the patient's bedside and all questions were answered. LENA Xie RN PT ED Observed: 03/13/2018 Status: COMPLETED Source: [place] 7:30 AM [facility] REPOSITORY HNO ID: [id number] Author: Amelia Quintero RN Service: (none) Author Type: Registered Nurse Type: Patient Education Filed: 03/13/2018 7:31 AM Note Text: PRE OP LEARNING ASSESSMENT PROCEDURE/SURGERY: GI PROCEDURES: Colonoscopy READINESS TO LEARN COGNITIVE ABILITY: Alert and oriented MOTIVATION TO LEARN: Eager Interested FAMILY SUPPORT: High - Very involved in pt care PATIENT LEARNS BEST BY: Individual Instruction Written Instruction - Hand-outs Verbal Instruction Multiple Methods FACTORS AFFECTING LEARNING: None PHYSICAL LIMITATIONS AFFECTING LEARNING: None Electronically Signed By: Amelia Quintero RN In Department: AMBULATORY SURGERY SURGICAL PATHOLOGY Observed: 03/13/2018 Status: F Source: [place] 12:00 AM [facility] REPOSITORY Specimen originated from [facility] Specimen #: [id number] Submitting Physician: CRYSTAL DAVIS ([id number]) FINAL DIAGNOSIS 1. Cecum, polyp, biopsy (A) - Tubular adenoma. 2. Transverse colon, polyp, biopsy (B) - Tubular adenoma. SR/rw 03/14/2018 Wilson Mcknight MD, Ph.D. (Electronic Signature) SPECIMEN SUBMITTED A: CECUM POLYP B: TRANSVERSE COLON POLYP CLINICAL DATA R19.4 GROSS DESCRIPTION A. Received in formalin is one piece of moon, soft tissue measuring 0.2 x 0.2 x 0.1 cm. Totally submitted in one cassette. B. Received in formalin is one piece of moon, soft tissue measuring 0.5 x 0.2 x 0.2 cm. Totally submitted in one cassette. Gross examination performed at [facility], [address] [place] [address] 03/14/2018 2:09:18 AM Date of Report: 03/14/2018 Date of Procedure: 03/13/2018 Date of Receipt: 03/13/2018 Submitted by: CRYSTAL DAVIS ([email or web address]) Location: [facility] Diagnostic interpretation performed at [place] [address]. HISTORY PHYSICAL Observed: 03/02/2018 Status: COMPLETED Source: [place] 7:40 AM [facility] REPOSITORY HNO ID: [id number] Author: Carli Childs Service: (none) Author Type: Nurse Practitioner Type: HANDP Filed: 03/02/2018 8:33 AM Note Text: Linda Harris a 57 year old male who is a consultation requested by Dr. Emerson for an opinion regarding a change in bowel habits. My final recommendations will be communicated back to the requesting physician by way of shared Medical record. The patient denies a family history of colon cancer. The patient was seen by Dr. Emerson on 02/07/18, leading to this consultation. That note has been reviewed and part as follows: Has noticed some bowel changes. He states not having constipation. He has to go sometimes two times a day. Has a splinter in his buttocks a month ago. Still has some soreness. Since then has had some constipation. Has stopped his pain meds as well overall in the last few weeks. Currently off of work due to his ankle. No blood in the stools. No bloody stools. Was having some frequent loose stools initially but has now changed. No abd pain. No nausea or vomiting. No diarrhea. Component Latest Ref Rng AND Units 02/12/2018 Glucose 74 - 99 mg/dL 111 (H) BUN 9 - 24 mg/dL 16 Creatinine 0.73 - 1.22 mg/dL 1.02 Sodium 136 - 144 mmol/L 139 Potassium 3.7 - 5.1 mmol/L 4.1 Chloride 97 - 105 mmol/L 101 CO2 22 - 30 mmol/L 23 Anion Gap 9 - 18 mmol/L 15 Calcium 8.5 - 10.2 mg/dL 9.0 eGFR- >60 eGFR-All Other Races . >60 The patient was seen by Dr. Mckeon for screening colonoscopy 11/24/08. The procedure report has been reviewed and findings as follows: Summary: Small internal and external hemorrhoids were found during the rectal exam. There was a very diminutive polyp in the distal sigmoid colon - this was eradicated using the biopsy forceps. FINAL DIAGNOSIS SIGMOID COLON POLYP, BIOPSY - HYPERPLASTIC POLYP. Presenting complaint: The patient presents today stating I have been on pain medication for 30 years and my bowels had been working well, if you know what I mean. He had surgery 10/12/17. He was taken off the pain medication and used tramadol on an as needed basis. He tells me that in November things really started to change. Having multiple bowel movements in the morning. First bowel movement is formed. Additional stools will get slightly looser, but not diarrhea. No urgency. It doesn't wake him. The patient tells me that he has intermittent discomfort mid abdomen, lateral aspects and lower abdomen mid line. He goes on to say that he has had problems with urination in the past, but that seems to have improved. Recent check by Dr. Emerson. Last 10 Encounter Wt Readings: Date: Wt: 03/02/2018 88 kg (194 lb) 02/07/2018 87.5 kg (193 lb) 09/28/2017 91.2 kg (201 lb) 08/02/2017 93 kg (205 lb) 05/30/2017 90.4 kg (199 lb 6.4 oz) 01/26/2017 91.2 kg (201 lb) 10/27/2016 91.6 kg (202 lb) 06/30/2016 92 kg (202 lb 12.8 oz) 10/12/2015 91.2 kg (201 lb) 09/25/2015 93 kg (205 lb) REVIEW OF SYSTEMS: GENERAL: No unplanned weight loss. He notes having lost some weight now that he is able to be more active. RESPIRATORY: Negative for cough, hemoptysis, wheezing, COPD, dyspnea or shortness of breath CARDIOVASCULAR: Hypertension. On prescription. GI: The patient states that his appetite has been adequate. He does get hungry. There has been no nausea, no vomiting. He denies dysphagia and denies odynophagia. There has not been indigestion or heartburn. There has not been regurgitation. Bowel habits have been irregular. There has not been diarrhea. There has not been constipation. The patient denies rectal bleeding. There has not been melena. Intermittent abdominal pain that is located in the left upper and right upper quadrant and low midline. PSYCH: Negative for sleep disturbance, mood disorder and recent psychosocial stressors. HEMATOLOGY/LYMPHOLOGY Negative for prolonged bleeding, bruising easily or swollen nodes ENDOCRINE: Negative for thyroid or diabetes. NEURO: No history of headaches, syncope, paralysis, seizures or tremors MUSCULOSKELETAL: Right ankle surgery 10/12/17 All other reviewed and negative other than HPI. PAST MEDICAL HISTORY Diagnosis Date - Acute gastritis without mention of hemorrhage - Ankle pain, right crush injury right ankle with complex tib-fib fracture: chronic pain - Back pain intermittent low back pain - Benign neoplasm of colon - Esophagitis no symptoms s/p dilitation - History of esophageal stricture 11/24/2008 - Hyperlipidemia - Hypertension with white coat effect - Panic attack heart racing, negative stress test 08/04 PAST SURGICAL HISTORY Procedure Laterality Date - ANKLE SURGERY HX 10/12/2017 - COLONOSCOP W/ OR W/O [facility] SPEC 11/24/08 hyperplastic polyp, repeat due 2018 - EGD W/O OR W/BRUSH/WASH 10/29/01 EGD - ESOPH W/O [facility] SPEC BALLOON DIL 11/24/08 EGD stricture dilated - OPEN RX ANKLE DISLOCATN+FIXATN 1987 ORIF Ankle right - PAST SURGICAL HISTORY OF 11/26 excision = pyogenic granuloma - PAST SURGICAL 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 Disp: Rfl: gabapentin (NEURONTIN) 100 mg capsule Take 1-3 capsules by mouth at bedtime as needed (pain) for up to 60 days. Disp: 90 capsule Rfl: 1 fenofibrate nanocrystallized (TRICOR) 145 mg tablet TAKE 1 TABLET DAILY Disp: 90 tablet Rfl: 3 losartan-hydrochlorothiazide (HYZAAR) 50-12.5 mg per tablet TAKE 1 TABLET DAILY Disp: 90 tablet Rfl: 3 No current facility-administered medications for this visit. SOCIAL HISTORY: Patient is . He has never smoked and reports his alcohol use as rare. PHYSICAL EXAMINATION: Blood pressure 157/99, pulse 80, height 172.7 cm (5' 8), weight 88 kg (194 lb). General Appearance: Well appearing, alert, in no acute distress, well-hydrated, well nourished. Skin: Skin color, texture, turgor normal, no suspicious rashes or lesions. Head: Normocephalic, no masses, lesions or abnormalities. Eyes: Anicteric sclera. Neck: Supple, no adenopathy. Lungs: Lungs clear to auscultation. No wheezing, rhonchi, rales. Heart: RRR without murmur. Abdomen: Normal abdominal exam, Abdomen soft, non-tender. Bowel sounds normal. No masses, organomegaly. Extremities: No edema, skin discoloration, clubbing or cyanosis. Peripheral Pulses: Normal. Neurologic: Gait normal. Sensation grossly intact. Impression: Altered bowel habits Plan: TSH today. The patient will be scheduled for a colonoscopy using GoLytely as the prep. The preparation, as well as the procedure, has been explained in detail. The risks, benefits, anticipated outcomes and possible complications were mentioned. I explained the procedure in understandable terms and the patient was given printed material concerning the planned procedure. The patient had the opportunity to ask questions concerning the planned procedure. The patient freely consents to the planned procedure. The patient is asked to call with any questions for concerns, or should there be any change in health status between now and the scheduled procedure. I have personally interviewed and examined this patient. I have read the information the MA documented in this encounter. I spent 30 minutes in the visit, with more than 50% of the total [id number] time of the visit in counseling / coordination of care. Carli Childs RN APRN.JACQUI CNOV Observed: 03/02/2018 Status: COMPLETED Source: [place] 7:40 AM [facility] REPOSITORY Office Visit ([facility]) LINDA HARRIS ([id number]) 1960 M Date Time Provider Department 03/02/18 7:40 AM CARLI CHILDS (PUJA) [facility] During your visit today, we recorded the following information about you: Pulse Blood pressure Weight Height 80/minute 157/99 88 kg 1.727 m Carli Childs RN APRN.AGITATOR OPERATOR 03/02/2018 8:33 AM Signed Linda Harris a 57 year old male who is a consultation requested by Dr. Emerson for an opinion regarding a change in bowel habits. My final recommendations will be communicated back to the requesting physician by way of shared Medical record. The patient denies a family history of colon cancer. The patient was seen by Dr. Emerson on 02/07/18, leading to this consultation. That note has been reviewed and part as follows: Has noticed some bowel changes. He states not having constipation. He has to go sometimes two times a day. Has a splinter in his buttocks a month ago. Still has some soreness. Since then has had some constipation. Has stopped his pain meds as well overall in the last few weeks. Currently off of work due to his ankle. No blood in the stools. No bloody stools. Was having some frequent loose stools initially but has now changed. No abd pain. No nausea or vomiting. No diarrhea. Component Latest Ref Rng AND Units 02/12/2018 Glucose 74 - 99 mg/dL 111 (H) BUN 9 - 24 mg/dL 16 Creatinine 0.73 - 1.22 mg/dL 1.02 Sodium 136 - 144 mmol/L 139 Potassium 3.7 - 5.1 mmol/L 4.1 Chloride 97 - 105 mmol/L 101 CO2 22 - 30 mmol/L 23 Anion Gap 9 - 18 mmol/L 15 Calcium 8.5 - 10.2 mg/dL 9.0 eGFR- >60 eGFR-All Other Races . >60 The patient was seen by Dr. Mckeon for screening colonoscopy 11/24/08. The procedure report has been reviewed and findings as follows: Summary: Small internal and external hemorrhoids were found during the rectal exam. There was a very diminutive polyp in the distal sigmoid colon - this was eradicated using the biopsy forceps. FINAL DIAGNOSIS SIGMOID COLON POLYP, BIOPSY - HYPERPLASTIC POLYP. Presenting complaint: The patient presents today stating I have been on pain medication for 30 years and my bowels had been working well, if you know what I mean. He had surgery 10/12/17. He was taken off the pain medication and used tramadol on an as needed basis. He tells me that in November things really started to change. Having multiple bowel movements in the morning. First bowel movement is formed. Additional stools will get slightly looser, but not diarrhea. No urgency. It doesn't wake him. The patient tells me that he has intermittent discomfort mid abdomen, lateral aspects and lower abdomen mid line. He goes on to say that he has had problems with urination in the past, but that seems to have improved. Recent check by Dr. Emerson. Last 10 Encounter Wt Readings: Date: Wt: 03/02/2018 88 kg (194 lb) 02/07/2018 87.5 kg (193 lb) 09/28/2017 91.2 kg (201 lb) 08/02/2017 93 kg (205 lb) 05/30/2017 90.4 kg (199 lb 6.4 oz) 01/26/2017 91.2 kg (201 lb) 10/27/2016 91.6 kg (202 lb) 06/30/2016 92 kg (202 lb 12.8 oz) 10/12/2015 91.2 kg (201 lb) 09/25/2015 93 kg (205 lb) REVIEW OF SYSTEMS: GENERAL: No unplanned weight loss. He notes having lost some weight now that he is able to be more active. RESPIRATORY: Negative for cough, hemoptysis, wheezing, COPD, dyspnea or shortness of breath CARDIOVASCULAR: Hypertension. On prescription. GI: The patient states that his appetite has been adequate. He does get hungry. There has been no nausea, no vomiting. He denies dysphagia and denies odynophagia. There has not been indigestion or heartburn. There has not been regurgitation. Bowel habits have been irregular. There has not been diarrhea. There has not been constipation. The patient denies rectal bleeding. There has not been melena. Intermittent abdominal pain that is located in the left upper and right upper quadrant and low midline. PSYCH: Negative for sleep disturbance, mood disorder and recent psychosocial stressors. HEMATOLOGY/LYMPHOLOGY Negative for prolonged bleeding, bruising easily or swollen nodes ENDOCRINE: Negative for thyroid or diabetes. NEURO: No history of headaches, syncope, paralysis, seizures or tremors MUSCULOSKELETAL: Right ankle surgery 10/12/17 All other reviewed and negative other than HPI. PAST MEDICAL HISTORY Diagnosis Date - Acute gastritis without mention of hemorrhage - Ankle pain, right crush injury right ankle with complex tib-fib fracture: chronic pain - Back pain intermittent low back pain - Benign neoplasm of colon - Esophagitis no symptoms s/p dilitation - History of esophageal stricture 11/24/2008 - Hyperlipidemia - Hypertension with white coat effect - Panic attack heart racing, negative stress test 08/04 PAST SURGICAL HISTORY Procedure Laterality Date - ANKLE SURGERY HX 10/12/2017 - COLONOSCOP W/ OR W/O [facility] SPEC 11/24/08 hyperplastic polyp, repeat due 2018 - EGD W/O OR W/BRUSH/WASH 10/29/01 EGD - ESOPH W/O [facility] SPEC BALLOON DIL 11/24/08 EGD stricture dilated - OPEN RX ANKLE DISLOCATN+FIXATN 1987 ORIF Ankle right - PAST SURGICAL HISTORY OF 11/26 excision = pyogenic granuloma - PAST SURGICAL 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 Disp: Rfl: gabapentin (NEURONTIN) 100 mg capsule Take 1-3 capsules by mouth at bedtime as needed (pain) for up to 60 days. Disp: 90 capsule Rfl: 1 fenofibrate nanocrystallized (TRICOR) 145 mg tablet TAKE 1 TABLET DAILY Disp: 90 tablet Rfl: 3 losartan-hydrochlorothiazide (HYZAAR) 50-12.5 mg per tablet TAKE 1 TABLET DAILY Disp: 90 tablet Rfl: 3 No current facility-administered medications for this visit. SOCIAL HISTORY: Patient is . He has never smoked and reports his alcohol use as rare. PHYSICAL EXAMINATION: Blood pressure 157/99, pulse 80, height 172.7 cm (5' 8), weight 88 kg (194 lb). General Appearance: Well appearing, alert, in no acute distress, well-hydrated, well nourished. Skin: Skin color, texture, turgor normal, no suspicious rashes or lesions. Head: Normocephalic, no masses, lesions or abnormalities. Eyes: Anicteric sclera. Neck: Supple, no adenopathy. Lungs: Lungs clear to auscultation. No wheezing, rhonchi, rales. Heart: RRR without murmur. Abdomen: Normal abdominal exam, Abdomen soft, non-tender. Bowel sounds normal. No masses, organomegaly. Extremities: No edema, skin discoloration, clubbing or cyanosis. Peripheral Pulses: Normal. Neurologic: Gait normal. Sensation grossly intact. Impression: Altered bowel habits Plan: TSH today. The patient will be scheduled for a colonoscopy using GoLytely as the prep. The preparation, as well as the procedure, has been explained in detail. The risks, benefits, anticipated outcomes and possible complications were mentioned. I explained the procedure in understandable terms and the patient was given printed material concerning the planned procedure. The patient had the opportunity to ask questions concerning the planned procedure. The patient freely consents to the planned procedure. The patient is asked to call with any questions for concerns, or should there be any change in health status between now and the scheduled procedure. I have personally interviewed and examined this patient. I have read the information the MA documented in this encounter. I spent 30 minutes in the visit, with more than 50% of the total [id number] time of the visit in counseling / coordination of care. Carli Childs RN BOILERS INSPECTOR.AGITATOR OPERATOR Carli Childs RN BOILERS INSPECTOR.AGITATOR OPERATOR 03/02/2018 8:16 AM Signed Please follow the provided instructions for colonoscopy. You will be using GoLytely as the laxative during the preparation. You may start the laxative as early as 1:00 in the afternoon. Your procedure will be with Dr. Davis, on March 13. Referring Provider: ALFONSO EMERSON [[id number]] Allergies As of Date: 03/02/2018 (No Known Allergies) Date Reviewed: 03/02/2018 Reviewed by: Garima Villanueva Ma - Fully Assessed Reason for Visit: Change in Bowel Function [Other] Primary Visit Diagnosis:Altered bowel habits [R19.4] Order(s):TSH BLD [SQTSH] Order #: [id number] FUTURE peg 3350-electrolytes (COLYTE) 240-22.72-6.72 -5.84 gram solutionTake 4,000 mL by mouth one time only for 1 dose.Disp: 1 BottleRfl: 0 COLONOSCOPY - DIAGNOSTIC [[id number]] Order #: [id number] FUTURE Prescriptions as of 03/02/2018 Sig: TRAMADOL 50 MG TABLET Take 50 mg by mouth every 6 h* PEG 3350 240 GRAM-ELECTROLYTE* Take 4,000 mL by mouth one ti* GABAPENTIN 100 MG CAPSULE Take 1-3 capsules by mouth at* FENOFIBRATE NANOCRYSTALLIZED * TAKE 1 TABLET DAILY LOSARTAN 50 MG-HYDROCHLOROTHI* TAKE 1 TABLET DAILY Problem List As Of Date 03/02/2018 Noted Resolved Anxiety state, unspecified [F41.1] INVALID FOR* Asbestos exposure [Z77.090] INVALID FOR* More... Sciatica [M54.30] INVALID FOR* Mixed hyperlipidemia [E78.2] INVALID FOR* ELEV BL PRES W/O HYPERTN [R03.0] INVALID FOR*08/26/2008 SPLENIC NODULE [D73.9] INVALID FOR* More... Chest pain, unspecified [R07.9] INVALID FOR*09/28/2017 More... PAIN JOINT, ANKLE [M25.579] INVALID FOR*04/16/2015 HYPERTENSION NOS [I10] INVALID FOR*01/17/2009 Special screening for malignant neoplasms, colo*INVALID FOR*09/28/2017 Benign neoplasm of colon [D12.6] INVALID FOR* Congenital tracheoesophageal fistula, esophagea*INVALID FOR* Elevated Blood Pressure Reading without Diagnos*INVALID FOR*07/18/2009 Hypertension [I10] INVALID FOR* More... Prepatellar bursitis [M70.40] INVALID FOR*07/10/2010 Routine physical examination [Z00.00] INVALID FOR*10/12/2015 CRI (chronic renal insufficiency) [N18.9] INVALID FOR*01/14/2011 Narcotic addiction [F11.20] INVALID FOR*04/01/2011 Panic attack [F41.0] Prostatitis [N41.9] INVALID FOR* BPH (benign prostatic hyperplasia) [N40.0] INVALID FOR* Pain of male genitalia [N50.89] INVALID FOR* Arthralgia [M25.50] INVALID FOR* Ankle pain, right [M25.571] INVALID FOR* More... 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 You will be using GoLytely as the laxative during the preparation. You may start the laxative as early as 1:00 in the afternoon. Your procedure will be with Dr. Davis, on March 13. Prescriptions ordered this encounter Disp Refills Start End PEG 3350 240 GRAM-ELECTROLYTES 22.72* 1 Carmine* 0 03/02/2018 03/02/2018 Route: ORAL Sig: Take 4,000 mL by mouth one time only for 1 dose. Follow-up and Disposition History Recorded Encounter Status:Closed by CARLI CHILDS CNP on 03/02/18 HOSP Observed: 03/02/2018 Status: COMPLETED Source: [place] 12:00 AM [facility] REPOSITORY Patient:Linda Harris MRN: <[id number]> Height:5' 8(1.727 m) Weight:194 lb 0.1 oz (88 kg) Outpatient Medications as of 03/13/18: traMADol (ULTRAM) 50 mg tablet gabapentin (NEURONTIN) 100 mg capsule fenofibrate nanocrystallized (TRICOR) 145 mg tablet losartan-hydrochlorothiazide (HYZAAR) 50-12.5 mg per tablet Admission/Clinic Administered Medications as of 03/13/18: lactated ringers infusion Problem List: Anxiety state, unspecified [F41.1] Asbestos exposure [Z77.090] Sciatica [M54.30] Mixed hyperlipidemia [E78.2] SPLENIC NODULE [D73.9] Benign neoplasm of colon [D12.6] Congenital tracheoesophageal fistula, 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, 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] Hypertension [I10] Panic attack [F41.0] Prostatitis [N41.9] BPH (benign prostatic hyperplasia) [N40.0] Pain of male genitalia [N50.89] Arthralgia [M25.50] Ankle pain, right [M25.571] 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] Chronic neck pain [M54.2, G89.29] TMJ (temporomandibular joint disorder) [M26.609] Altered bowel habits [R19.4] Allergies: No Known Allergies Date Verified:03/13/18 Lab Values Lab Value Units Date High Low POTA* 4.1 mmol/L 02/12/2018 5.1 3.7 Progress Notes ([facility]): Garima Villanueva Ma 03/02/2018 8:48 AM Signed AMBULATORY PATIENT EDUCATION NOTE READINESS TO LEARN Cogntitive ability: Alert and oriented Motivation to learn: Interested Family support: Unable to assess - family not present Instruction provided to: Patient Patient learns best by: Individual instruction, written instruction (hand-outs), and verbal instruction. Factors affecting learning: None Physical limitations affecting learning: None LEARNING RESPONSE Diagnosis: Altered Bowel Habits Education topic/teaching points: Colonoscopy METHOD OF INSTRUCTION:Teachback:Individual instruction, written instruction (hand-outs), and verbal instruction. Patient/family response: Verbalizes understanding of pre-procedure instructions. Follow-up plan: Complete - No need for follow-up Supplemental material: None Patient instructed to check insurance benefits and precertification.Patient instructed to bring in advanced directives if applicable. Referral Entered: No Does patient have a Pacemaker or Defibrillator? No Electronically Signed By: Garima Villanueva Ma In department: Gastroenterology Progress Notes ([facility]): Peggy Baker Jeremi MCNEILL 02/14/2018 8:46 AM Signed Patient had repeat labs completed. He has reviewed BMP on mychart and sees that kidney levels are back to normal. Asking if he needs to keep appt for US that is scheduled for 02/16/18. Please review and advise. Alfonso Emerson MD 02/14/2018 11:51 AM Signed Can hold on ultrasound. Ana Ash Ma 02/14/2018 12:19 PM Signed Detailed message left for patient on an identifiable voicemail. Appointment for US was canceled. Ana Ash Ma RE-EVALUATION - PT (1) Observed: 02/21/2018 Status: F Source: [place] 11:[address] [facility] REPOSITORY [facility] Physical [facility] [address] [place], [place] [address] Fax REEVALUATION / MEDICARE RECERTIFICATION PHYSICAL THERAPY MR#: [id number] Acct: [id number] Name: LINDA HARRIS Rep #: [id number] : 1960 57 From: Maria Teresa Lopez DPT Referring DrWander: OUT OF TOWN DOCTOR Status: REG RCR Insurance: [employer] SELF PAY INSURANCE Out of [facility] Doctor, It has been my pleasure to treat LINDA HARRIS over the last 8 visits for Ankle Fusion. Please see the progress note below for an update on the physical therapy plan of care! Subjective: Patient reports that the ankle is getting better but its still not there yet. He feels hs ie 50-60% better. He is still challenged with every day activities such as going down stairs. He does them one at a time. He goes back to the MD March 21. He feels that he needs to get stronger in the ankle/foot. Objective/Function: Posture: good. Gait: antalgic- decreased stance on the right LE-poor heel/toe pattern. Stairs: asc is able to perform reciprocally- with 1 HR- does use mild UE A. Desc he can do reciprocally but his technique is poor- descends without control with 2 UE- HR/TR: able but decreased TR- weight shifts to the left. Balance: 10 sec then requires UE A. ROM: df: 2 degrees, PF: 10 degrees, Ever: 20 degrees Inv: 30 degrees. Strength: 4+/5 throughout LE Core: fair Plan Plan: Continue with POC Goals Goal 1:: Patient will be I with HEP and progression Goal Time Frame: 4-6 Weeks Goal Progress: Progressing Goal 2:: Patient will demo 30 sec SLS Goal Time Frame: 4-6 Weeks Goal Progress: Progressing Goal 3:: Patient will report 2/10 pain for 1 week Goal Time Frame: 4-6 Weeks Goal Progress: Progressing Goal 4:: Patient will demo 5/5 strength in LE Goal Time Frame: 4-6 Weeks Goal Progress: Progressing Anticipated Interventions Patient/Client Instruction: Educate patient on: Benefits of Fitness Program For the Purpose of:: To improve muscle performance and motor function Therapeutic Exercise to Include: Strength training, Balance training, Agility training, Body mechanics, Postural training, Flexibilty training, Gait and locomotor training, Dynamic Lumbar Stabilization For the Purpose of:: To improve muscle performance and motor function Please do not hesitate to contact me at [phone] by phone or if you have questions or concerns regarding this new plan of care! Sincerely, Maria Teresa Lopez <Electronically signed by Maria Teresa Lopez DPT> 02/21/18 1100 CC: OUT OF TOWN DOCTOR; Alfonso Emerson MD ELR Signed For Medicare only, by signing this I certify the plan of care. Physicians Signature Date URINALYSIS WITH Collected: 02/12/2018 Status: F Source: [facility] 9:55 AM CLINIC MAIN CAMPUS REPOSITORY TYPE CODE TESTS RESULT OUT OF REFERENCE UNITS RANGE LAB UCOL Yellow Color Yellow LAB [facility] Clear Clarity Clear LAB UGLUC Negative mg/dL Glucose, Urine Negative LAB UBIL Negative Bilirubin, Urine Negative LAB UKET Negative Ketones, Urine Negative LAB USPG 1.005-1.030 Specific Low [place], Ur 1.004 LAB UHGB Negative Hemoglobin/Blood, Negative Ur LAB UPH 4.5-8.0 pH 7.0 LAB UPROT Negative mg/dL Protein, Urine Negative LAB UUROB Normal Urobilinogen Normal LAB UNITR Negative Nitrites Negative LAB ULKEST Negative Leukest Negative LAB UCOM Comments SEE COMMENT Result Comment: N/A LAB UMCOM Urine SEE Pascual Comment COMMENT Result Comment: N/A LAB UWBC 0-5 /HPF WBC 0-5 LAB URBC 0-3 /HPF RBC 0-3 Performed By: #### UAWMIC #### [facility] [address] [place], [place] [address] BASIC METABOLIC PANL Collected: 02/12/2018 Status: F Source: [place] 9:53 AM [facility] REPOSITORY TYPE CODE TESTS RESULT OUT OF REFERENCE UNITS RANGE LAB GLU 74-99 mg/dL High Glucose 111 Result Comment: The [place] Diabetes Association (ADA) provides guidance for cutoff values for fasting glucose and random glucose. The ADA defines fasting as no caloric intake for at least 8 hours. Fas ting plasma glucose results between 100 to 125 mg/dL indicate increased risk for diabetes (prediabetes). Fasting plasma glucose results greater than or equal to 126 mg/dL meet the criteria for diagnosis of diabetes. In the absence of unequivocal hyperglycemia, results should be confirmed by repeat testing. In a patient with classic symptoms of hyperglycemia or hyperglycemic crisis, random plasma glucose results greater than or equal to 200 mg/dL meet the criteria for diagnosis of diabetes. Reference: Standards of Medical Care in Diabetes 2016, [place] Diabetes Association. Diabetes Care. 2016.39(Suppl 1). LAB BUN 9-24 mg/dL BUN 16 LAB CRET 0.73-1.22 mg/dL Creatinine 1.02 LAB NA 136-144 mmol/L Sodium 139 LAB K 3.7-5.1 mmol/L Potassium 4.1 LAB CL 97-105 mmol/L Chloride 101 LAB CO2 22-30 mmol/L CO2 23 LAB AGAP 9-18 mmol/L Anion Gap 15 LAB CA 8.5-10.2 mg/dL Calcium, Total 9.0 LAB GFRAA eGFR- Amer. >60 LAB GFRNAA . eGFR-All Other Races >60 Result Comment: eGFR (Estimated GFR) Units of measure: mL/min/1.73 meters squared eGFR is derived from the reexpressed MDRD Study equation using the following parameters: serum creatinine, age, gender and race. The creatinine assay has been calibrated to be traceable to IDMS. An eGFR <60 mL/min/1.73m2 for >3 months is consistent with chronic kidney disease. Refer to KDOQI guidelines for clinical interpretation. In patients with unstable renal function, e.g. those with acute kidney injury, the eGFR may not accurately reflect actual GFR. Performed By: #### BMP #### [facility] [address] [place], [place] [address] PROGRESS Observed: 02/07/2018 Status: COMPLETED Source: [place] 10:02 AM [facility] REPOSITORY HNO ID: [id number] Author: Alfonso Emerson Service: (none) Author Type: Physician Type: Progress Notes Filed: 02/07/2018 10:30 AM Note Text: Patient presents with: Question: about kidney HPI: Patient presents today for office visit for follow up. Nursing Notes: Karen Puente LPN 02/07/2018 9:48 AM Signed Asking about kidney function tests. Constipation which is new to him. Due for colonoscopy in 2019. Not using pain medications currently. Did have tramadol after surgery but has very few left. Using OTC Tylenol/Advil as needed. Had found mild renal insufficiency before surgery. Had advised to avoid nsaids. Was to come in for repeat labs, including bmp and ua and renal us and did not. Pain is overall improving. Pain in joint is doing better. HYPERTENSION: no chest pain or shortness of breath. No edema. HLD: most recent labs were stable. Has noticed some bowel changes. He states not having constipation. He has to go sometimes two times a day. Has a splinter in his buttocks a month ago. Still has some soreness. Since then has had some constipation. Has stopped his pain meds as well overall in the last few weeks. Currently off of work due to his ankle. No blood in the stools. No bloody stools. Was having some frequent loose stools initially but has now changed. No abd pain. No nausea or vomiting. No diarrhea. MEDICATIONS: Current Outpatient Prescriptions: gabapentin (NEURONTIN) 100 mg capsule Take 1-3 capsules by mouth at bedtime as needed (pain) for up to 60 days. fenofibrate nanocrystallized (TRICOR) 145 mg tablet TAKE 1 TABLET DAILY losartan-hydrochlorothiazide (HYZAAR) 50-12.5 mg per tablet TAKE 1 TABLET DAILY No current facility-administered medications for this visit. ALLERGIES: ALLERGIES No Known Allergies PAST MEDICAL HISTORY Diagnosis Date - Acute gastritis without mention of hemorrhage - Ankle pain, right crush injury right ankle with complex tib-fib fracture: chronic pain - Back pain intermittent low back pain - Benign neoplasm of colon - Esophagitis no symptoms s/p dilitation - History of esophageal stricture 11/24/2008 - Hyperlipidemia - Hypertension with white coat effect - Panic attack heart racing, negative stress test 08/04 PAST SURGICAL HISTORY Procedure Laterality Date - COLONOSCOP W/ OR W/O [facility] SPEC 11/24/08 hyperplastic polyp, repeat due 2018 - EGD W/O OR W/BRUSH/WASH 10/29/01 EGD - ESOPH W/O [facility] SPEC BALLOON DIL 11/24/08 EGD stricture dilated - OPEN RX ANKLE DISLOCATN+FIXATN 1987 ORIF Ankle right - PAST SURGICAL HISTORY OF 11/26 excision = pyogenic granuloma - PAST SURGICAL HISTORY OF 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 Two children from first marriage. Lives with girlfriend. Rides dirt bike, jet ski, sprint cars. Reviewed current medications, allergies, past medical history, surgical history, family history and social history today. REVIEW OF SYSTEMS All other reviewed and negative other than HPI. HEALTH MAINTENANCE: Reviewed health maintenance issues today and recommended the following in detail. VITALS: BP 122/86 Pulse 80 Resp 16 Wt 87.5 kg (193 lb) BMI 28.50 kg/m? Last 4 Encounter Wt Readings: Date: Wt: 02/07/2018 87.5 kg (193 lb) 09/28/2017 91.2 kg (201 lb) 08/02/2017 93 kg (205 lb) 05/30/2017 90.4 kg (199 lb 6.4 oz) PHYSICAL EXAMINATION: General appearance: Well appearing, alert, in no acute distress, well-hydrated, well nourished. Skin: has small area on left buttock. Mild thickening. No palpable mass. Offered xray etc or surgical referral declines. Does not appear infected. Lungs: Lungs clear to auscultation. No wheezing, rhonchi, rales Heart: RRR without murmur, gallop, or rubs. No ectopy Abdomen: Normal abdominal exam, Abdomen soft, non-tender. Bowel sounds normal. No masses, organomegaly Extremities: No deformities, edema, skin discoloration, clubbing or cyanosis. Good capillary refill. ASSESSMENT/PLAN: 1. CKD (chronic kidney disease) stage 3, GFR 30-59 ml/min - ICD9: 585.3, ICD10: N18.3 (primary diagnosis) - call if any issues. avoid nsaids - BASIC METABOLIC PNL - URINALYSIS WITH MICROSCOPIC - US KIDNEY/BLADDER 2. Change in bowel function - ICD9: 787.99, ICD10: R19.4 - fluids and fiber - CONSULT TO GASTROENTEROLOGY 3. Mixed hyperlipidemia - ICD9: 272.2, ICD10: E78.2 - good control - Continue current medication. 4. Essential hypertension - ICD9: 401.9, ICD10: I10 - good control - Goal of BP <130/80 Alfonso Emerson MD CNOV Observed: 02/07/2018 Status: COMPLETED Source: [place] 9:40 AM [facility] REPOSITORY [facility] LINDA HARRIS ([id number]) 1960 M [facility] Date Time Provider Department 02/07/18 9:40 AM ALFONSO EMERSON During your visit today, we recorded the following information about you: Pulse Respiration Blood pressure Weight 80/minute 16/minute 122/86 87.5 kg Karen Puente OSITO 02/07/2018 9:48 AM Signed Asking about kidney function tests. Constipation which is new to him. Due for colonoscopy in 2019. Not using pain medications currently. Did have tramadol after surgery but has very few left. Using OTC Tylenol/Advil as needed. Alfonso Emerson MD 02/07/2018 10:30 AM Signed Patient presents with: Question: about kidney HPI: Patient presents today for office visit for follow up. Nursing Notes: Karen Puente LPN 02/07/2018 9:48 AM Signed Asking about kidney function tests. Constipation which is new to him. Due for colonoscopy in 2019. Not using pain medications currently. Did have tramadol after surgery but has very few left. Using OTC Tylenol/Advil as needed. Had found mild renal insufficiency before surgery. Had advised to avoid nsaids. Was to come in for repeat labs, including bmp and ua and renal us and did not. Pain is overall improving. Pain in joint is doing better. HYPERTENSION: no chest pain or shortness of breath. No edema. HLD: most recent labs were stable. Has noticed some bowel changes. He states not having constipation. He has to go sometimes two times a day. Has a splinter in his buttocks a month ago. Still has some soreness. Since then has had some constipation. Has stopped his pain meds as well overall in the last few weeks. Currently off of work due to his ankle. No blood in the stools. No bloody stools. Was having some frequent loose stools initially but has now changed. No abd pain. No nausea or vomiting. No diarrhea. MEDICATIONS: Current Outpatient Prescriptions: gabapentin (NEURONTIN) 100 mg capsule Take 1-3 capsules by mouth at bedtime as needed (pain) for up to 60 days. fenofibrate nanocrystallized (TRICOR) 145 mg tablet TAKE 1 TABLET DAILY losartan-hydrochlorothiazide (HYZAAR) 50-12.5 mg per tablet TAKE 1 TABLET DAILY No current facility-administered medications for this visit. ALLERGIES: ALLERGIES No Known Allergies PAST MEDICAL HISTORY Diagnosis Date - Acute gastritis without mention of hemorrhage - Ankle pain, right crush injury right ankle with complex tib-fib fracture: chronic pain - Back pain intermittent low back pain - Benign neoplasm of colon - Esophagitis no symptoms s/p dilitation - History of esophageal stricture 11/24/2008 - Hyperlipidemia - Hypertension with white coat effect - Panic attack heart racing, negative stress test 08/04 PAST SURGICAL HISTORY Procedure Laterality Date - COLONOSCOP W/ OR W/O [facility] SPEC 11/24/08 hyperplastic polyp, repeat due 2018 - EGD W/O OR W/BRUSH/WASH 10/29/01 EGD - ESOPH W/O [facility] SPEC BALLOON DIL 11/24/08 EGD stricture dilated - OPEN RX ANKLE DISLOCATN+FIXATN 1987 ORIF Ankle right - PAST SURGICAL HISTORY OF 11/26 excision = pyogenic granuloma - PAST SURGICAL 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 Two children from first marriage. Lives with girlfriend. Rides dirt bike, jet ski, sprint cars. Reviewed current medications, allergies, past medical history, surgical history, family history and social history today. REVIEW OF SYSTEMS All other reviewed and negative other than HPI. HEALTH MAINTENANCE: Reviewed health maintenance issues today and recommended the following in detail. VITALS: BP 122/86 Pulse 80 Resp 16 Wt 87.5 kg (193 lb) BMI 28.50 kg/m? Last 4 Encounter Wt Readings: Date: Wt: 02/07/2018 87.5 kg (193 lb) 09/28/2017 91.2 kg (201 lb) 08/02/2017 93 kg (205 lb) 05/30/2017 90.4 kg (199 lb 6.4 oz) PHYSICAL EXAMINATION: General appearance: Well appearing, alert, in no acute distress, well-hydrated, well nourished. Skin: has small area on left buttock. Mild thickening. No palpable mass. Offered xray etc or surgical referral declines. Does not appear infected. Lungs: Lungs clear to auscultation. No wheezing, rhonchi, rales Heart: RRR without murmur, gallop, or rubs. No ectopy Abdomen: Normal abdominal exam, Abdomen soft, non-tender. Bowel sounds normal. No masses, organomegaly Extremities: No deformities, edema, skin discoloration, clubbing or cyanosis. Good capillary refill. ASSESSMENT/PLAN: 1. CKD (chronic kidney disease) stage 3, GFR 30-59 ml/min - ICD9: 585.3, ICD10: N18.3 (primary diagnosis) - call if any issues. avoid nsaids - BASIC METABOLIC PNL - URINALYSIS WITH MICROSCOPIC - US KIDNEY/BLADDER 2. Change in bowel function - ICD9: 787.99, ICD10: R19.4 - fluids and fiber - CONSULT TO GASTROENTEROLOGY 3. Mixed hyperlipidemia - ICD9: 272.2, ICD10: E78.2 - good control - Continue current medication. 4. Essential hypertension - ICD9: 401.9, ICD10: I10 - good control - Goal of BP <130/80 Alfonso Emerson MD Referring Provider: SELF [[id number]] Allergies As of Date: 02/07/2018 (No Known Allergies) Date Reviewed: 02/07/2018 Reviewed by: Karen Puente LPN - Fully Assessed Reason for Visit: Question [1327] Cmt: about kidney Primary Visit Diagnosis:CKD (chronic kidney disease) stage 3, GFR 30-59 ml/min [N18.3] Other Visit Diagnoses:Change in bowel function [R19.4] Mixed hyperlipidemia [E78.2] Essential hypertension [I10] Order(s):BASIC METABOLIC PNL [SQBMP] Order #: [id number] FUTURE URINALYSIS WITH MICROSCOPIC [SQUAWMIC] Order #: [id number] FUTURE US KIDNEY/BLADDER [[id number]] Order #: [id number] FUTURE CONSULT TO GASTROENTEROLOGY [9010] Order #: [id number]: 1 Prescriptions as of 02/07/2018 Sig: GABAPENTIN 100 MG CAPSULE Take 1-3 capsules by mouth at* FENOFIBRATE NANOCRYSTALLIZED * TAKE 1 TABLET DAILY LOSARTAN 50 MG-HYDROCHLOROTHI* TAKE 1 TABLET DAILY Problem List As Of Date 02/07/2018 Noted Resolved Anxiety state, unspecified [F41.1] INVALID FOR* Asbestos exposure [Z77.090] INVALID FOR* More... Sciatica [M54.30] INVALID FOR* Mixed hyperlipidemia [E78.2] INVALID FOR* ELEV BL PRES W/O HYPERTN [R03.0] INVALID FOR*08/26/2008 SPLENIC NODULE [D73.9] INVALID FOR* More... Chest pain, unspecified [R07.9] INVALID FOR*09/28/2017 More... PAIN JOINT, ANKLE [M25.579] INVALID FOR*04/16/2015 HYPERTENSION NOS [I10] INVALID FOR*01/17/2009 Special screening for malignant neoplasms, colo*INVALID FOR*09/28/2017 Benign neoplasm of colon [D12.6] INVALID FOR* Congenital tracheoesophageal fistula, esophagea*INVALID FOR* Elevated Blood Pressure Reading without Diagnos*INVALID FOR*07/18/2009 Hypertension [I10] INVALID FOR* More... Prepatellar bursitis [M70.40] INVALID FOR*07/10/2010 Routine physical examination [Z00.00] INVALID FOR*10/12/2015 CRI (chronic renal insufficiency) [N18.9] INVALID FOR*01/14/2011 Narcotic addiction [F11.20] INVALID FOR*04/01/2011 Panic attack [F41.0] Prostatitis [N41.9] INVALID FOR* BPH (benign prostatic hyperplasia) [N40.0] INVALID FOR* Pain of male genitalia [N50.89] INVALID FOR* Arthralgia [M25.50] INVALID FOR* Ankle pain, right [M25.571] INVALID FOR* More... 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 Constipation which is new to him. Due for colonoscopy in 2019. Not using pain medications currently. Did have tramadol after surgery but has very few left. Using OTC Tylenol/Advil as needed. Disposition: Return in about 6 months (around 08/09/2018). Follow-up and Disposition History Recorded Encounter Status:Closed by ALFONSO EMERSON MD on 02/07/18 INITAL EVALUATION (1) Observed: 01/24/2018 Status: F Source: [place] - PT 11:[address] [facility] REPOSITORY [facility] [address] [place] [address] Fax REHABILITATION SERVICES INITIAL EVALUATION MR#: [id number] Acct: [id number] Name: LINDA HARRIS Rep #: [id number] : 1960 57 From: Maria Teresa Lopez DPT Referring Dr.: OUT OF TOWN DOCTOR Status: REG RCR Insurance: [employer] SELF PAY INSURANCE Patient's Visit Information LINDA HARRIS is a 57 year old M referred to Physical Therapy by Out [facility] Doctor with a diagnosis of Ankle Fusion. Date of Evaluation: 01/24/18 Physical Therapist: Maria Teresa Lopez - Visit Plan Frequency: 2x /Week Duration: 4 Weeks Plan: Focus on propriocetion, strength and core s/s. - Subjective Subjective: Right ankle shattered it 30 years- Dr. Tucker fixed it. Surgery Oct 12- fused it- was in a cast for 6 weeks- non weight bearing- then into a boot non weight bearing until 8 weeks. Cheated before then but was released 01/17 to put weight on it. MD told him to be in [facility] and wear his $300.00 insoles. When sitting he is painfree but starts to ache after a long period of sitting. Has been on/off pain meds due to the ankle for years. Can be painfree with pain meds. Was on it a lot yesterday. 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 Goes back to see March 22. Pain is located throughout the entire foot. Describes pain as dull and achy but by the end of the day it can be hard to walk. N/T in the toes but it changes with swelling. Want so to push the foot and get it back to normal. Pain is the only limiting factor- MD told him to beat the hell out of it. Sleep: disturbed but doesn't wake up PMHx:HTN Meds: Losarting, triglyde, tramadol and tylenol as needed - Objective Posture: good. Gait: antalgic- decreased stance on the right LE-poor heel/toe pattern. Girth: 55.5 cm fig 4-29 cm mall-23 cm mets. HR/TR: able but decreased TR. Balance: 5 sec then requires UE A. ROM: df: neutral, PF: 5 degrees, Ever: 20 degrees Inv: 30 degrees. Strength: 4+/5 throughout LE Core: fair - Goals Goal 1:: Patient will be I with HEP and progression Goal Time Frame: 4-6 Weeks Goal 2:: Patient will demo 30 sec SLS Goal Time Frame: 4-6 Weeks Goal 3:: Patient will report 2/10 pain for 1 week Goal Time Frame: 4-6 Weeks Goal 4:: Patient will demo 5/5 strength in LE Goal Time Frame: 4-6 Weeks - Rehabilitation Potential Physical Therapy Diagnosis: Patient presents with hypomobility- he has decreased ROM, strength and muscular endurance leading to poor balance and incresaed pain with ADL's. Rehabilitation Potential: Good - Anticipated Interventions Patient/Client Instruction: Educate patient on: Benefits of Fitness Program For the Purpose of:: To improve muscle performance and motor function Therapeutic Exercise to Include: Strength training, Balance training, Agility training, Body mechanics, Postural training, Flexibilty training, Gait and locomotor training, Dynamic Lumbar Stabilization For the Purpose of:: To improve muscle performance and motor function Thank you for the opportunity to evaluate your patient. For Medicare and Medicare HMO plans, please review the plan of care and approve it. It will need to be FAXED BACK to us at [phone] for Medicare purposes. Please let me know if there are questions or concerns regarding this plan of care. Physician Signature: Date: <Electronically signed by Maria Teresa Lopez DPT> 01/24/18 1151 CC: OUT OF TOWN DOCTOR; Alfonso Emerson MD ELR Signed For Medicare only, by signing this I certify the plan of care. Physicians Signature Date PROGRESS Observed: 01/05/2018 Status: COMPLETED Source: [place] 9:24 AM [facility] REPOSITORY HNO ID: [id number] Author: Karla Yu Service: (none) Author Type: (none) Type: Progress Notes Filed: 01/05/2018 9:24 AM Note Text: Radiology Service Progress Note PATIENT NAME: Linda Harris DATE OF SERVICE: January 05, 2018 TIME: 9:24 AM PATIENT IDENTITY VERIFICATION COMPLETED USING TWO (2) METHODS: Patient confirmed name verbally and Date of . PATIENT GENDER DATA: Male PATIENT RELEVANT IMPLANT DATA REVIEWED: Not Applicable RADIOLOGY DEPARTMENT: CT; Exam(s) Completed: rt ankle w/o PERIPHERAL IV DATA: Not applicable SIGNED BY: Karla Spain January 05, 2018 9:[address] ANKLE WO IVCON Observed: 01/05/2018 Status: F Source: [place] RT 8:58 AM [facility] REPOSITORY * * *Final Report* * * DATE OF EXAM: Jan 05 2018 8:58AM [facility] 0061 - CT ANKLE WO IVCON RT / PROCEDURE REASON: evaluate healing fusion * * * * Physician Interpretation * * * * History: evaluate healing fusion Technique: CT ANKLE WO IVCON RT -- Right CT imaging was performed without administration of contrast: Dose-Length Product (DLP): 353 mGy*cm. CT Dose Reduction Employed: Automated exposure control (AEC) Comparison: Radiographs dated 04/28/2015 Result: The patient is status post tibiotalar arthrodesis with lateral and dorsal plate and screw fixation as well as 2 transarticular screws traversing the tibiotalar joint. There is also an intramedullary frankie in the distal fibula with resection of the lateral malleolus. There is evidence of bony bridging along the anterior and central aspects of the tibiotalar joint. A gap is still visualized along posterior margin. Minimal degenerative changes in the posterior subtalar joint. Joint spaces and alignment otherwise within normal limits including the talonavicular and calcaneocuboid articulations, midfoot articulations and visualized forefoot articulations. Tubular lucency in the calcaneus probably due to bone graft donor site. Small metallic fragments are seen in the soft tissues adjacent to the distal fibula. No evidence of hardware failure. Impression: POSTOPERATIVE CHANGES DESCRIBED STATUS POST TIBIOTALAR ARTHRODESIS WITH EVIDENCE OF BONY BRIDGING ACROSS THE ARTHRODESIS. Wire Brusher: GARFIELD Transcribe Date/Time: Jan 05 2018 10:20A Dictated by : KESHAV LY MD This examination was interpreted and the report reviewed and electronically signed by: KESHAV LY MD on Jan 05 2018 10:28AM EST [id number] BASIC METABOLIC PANL Collected: 10/02/2017 Status: F Source: [place] 4:43 PM [facility] REPOSITORY TYPE CODE TESTS RESULT OUT OF REFERENCE UNITS RANGE LAB GLU 74-99 mg/dL Glucose 96 Result Comment: The [place] Diabetes Association (ADA) provides guidance for cutoff values for fasting glucose and random glucose. The ADA defines fasting as no caloric intake for at least 8 hours. Fas ting plasma glucose results between 100 to 125 mg/dL indicate increased risk for diabetes (prediabetes). Fasting plasma glucose results greater than or equal to 126 mg/dL meet the criteria for diagnosis of diabetes. In the absence of unequivocal hyperglycemia, results should be confirmed by repeat testing. In a patient with classic symptoms of hyperglycemia or hyperglycemic crisis, random plasma glucose results greater than or equal to 200 mg/dL meet the criteria for diagnosis of diabetes. Reference: Standards of Medical Care in Diabetes 2016, [place] Diabetes Association. Diabetes Care. 2016.39(Suppl 1). LAB BUN 9-24 mg/dL BUN 19 LAB CRET 0.73-1.22 mg/dL Creatinine High 1.44 LAB NA 136-144 mmol/L Sodium 138 LAB K 3.7-5.1 mmol/L Potassium 3.9 LAB CL 97-105 mmol/L Chloride 98 LAB CO2 22-30 mmol/L CO2 26 LAB AGAP 9-18 mmol/L Anion Gap 14 LAB CA 8.5-10.2 mg/dL Calcium, Total 9.3 LAB GFRAA eGFR- Amer. >60 LAB GFRNAA . eGFR-All Other Races 51 Result Comment: eGFR (Estimated GFR) Units of measure: mL/min/1.73 meters squared eGFR is derived from the reexpressed MDRD Study equation using the following parameters: serum creatinine, age, gender and race. The creatinine assay has been calibrated to be traceable to IDMS. An eGFR <60 mL/min/1.73m2 for >3 months is consistent with chronic kidney disease. Refer to KDOQI guidelines for clinical interpretation. In patients with unstable renal function, e.g. those with acute kidney injury, the eGFR may not accurately reflect actual GFR. Performed By: #### BMP #### [facility] [address] [place] [id number] CNPN Observed: 09/29/2017 Status: COMPLETED Source: [place] 12:00 AM [facility] REPOSITORY Telephone (FAMPWS) LINDA HARRIS ([id number]) 1960 [facility] Date Time Provider Department 09/29/17 [facility] During your visit today, we recorded the following information about you: Alfonso Emerson MD 09/29/2017 9:47 AM Signed Labs show mild renal insufficiency. sned labs to podiatry. Push fluids and recheck bmp on monday Maggie Osullivan Cma 09/29/2017 11:02 AM Signed Left detailed message for patient. Labs faxed to podiatry. Maggie Darling LPN 09/29/2017 11:26 AM Signed Patient returned call and went over results, notes from Dr Emerson with understanding. Patient said he drank one and one half, 16 oz gatorade just before had labs done. Patient said he drinks 16 oz gatorade every day at 9 am for his break, he does not sweat he gets hot. Patient said Dr Coy said he has over flowing bladder when he saw him few years ago. Allergies As of Date: 09/29/2017 (No Known Allergies) Date Reviewed: 09/28/2017 Reviewed by: Ana Ash Ma - Fully Assessed Reason for Visit: Results [95] Primary Visit Diagnosis:Renal insufficiency [N28.9] Order(s):BASIC METABOLIC PNL [SQBMP] Order #: [id number] FUTURE Prescriptions as of 09/29/2017 Sig: HYDROCODONE 5 MG-ACETAMINOPHE* Take 1 tablet by mouth twice * FENOFIBRATE NANOCRYSTALLIZED * TAKE 1 TABLET DAILY LOSARTAN 50 MG-HYDROCHLOROTHI* TAKE 1 TABLET DAILY GABAPENTIN 100 MG CAPSULE Take 1-3 capsules by mouth at* Problem List As Of Date 09/29/2017 Noted Resolved Anxiety state, unspecified [F41.1] INVALID FOR* Asbestos exposure [Z77.090] INVALID FOR* More... Sciatica [M54.30] INVALID FOR* Mixed hyperlipidemia [E78.2] INVALID FOR* ELEV BL PRES W/O HYPERTN [R03.0] INVALID FOR*08/26/2008 SPLENIC NODULE [D73.9] INVALID FOR* More... Chest pain, unspecified [R07.9] INVALID FOR*09/28/2017 More... PAIN JOINT, ANKLE [M25.579] INVALID FOR*04/16/2015 HYPERTENSION NOS [I10] INVALID FOR*01/17/2009 Special screening for malignant neoplasms, colo*INVALID FOR*09/28/2017 Benign neoplasm of colon [D12.6] INVALID FOR* Congenital tracheoesophageal fistula, esophagea*INVALID FOR* Elevated Blood Pressure Reading without Diagnos*INVALID FOR*07/18/2009 Hypertension [I10] INVALID FOR* More... Prepatellar bursitis [M70.40] INVALID FOR*07/10/2010 Routine physical examination [Z00.00] INVALID FOR*10/12/2015 CRI (chronic renal insufficiency) [N18.9] INVALID FOR*01/14/2011 Narcotic addiction [F11.20] INVALID FOR*04/01/2011 Panic attack [F41.0] Prostatitis [N41.9] INVALID FOR* BPH (benign prostatic hyperplasia) [N40.0] INVALID FOR* Pain of male genitalia [N50.89] INVALID FOR* Arthralgia [M25.50] INVALID FOR* Ankle pain, right [M25.571] INVALID FOR* More... 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*INVALID FOR* Chronic neck pain [M54.2, G89.29] INVALID FOR* TMJ (temporomandibular joint disorder) [M26.609]INVALID FOR* Encounter Status:Closed by WORKMAN MAGGIE RAMAN on 09/29/17 XR CHEST 2V FRONTAL/LAT Observed: 09/28/2017 Status: F Source: [place] 4:15 PM [facility] REPOSITORY * * *Final Report* * * DATE OF EXAM: Sep 28 2017 4:15PM [id number] [id number] - XR CHEST 2V FRONTAL/LAT / PROCEDURE REASON: Contact with and (suspected) exposure to asbestos * * * * Physician Interpretation * * * * XR CHEST 2V FRONTAL/LAT INDICATION: Contact with and (suspected) exposure to asbestos 57 years/Male RESULT: The heart size is normal. The lung marinelli are clear of infiltrate. No mediastinal or hilar adenopathy. The costophrenic angles are clear. The bony structures are intact IMPRESSION: no active cardiopulmonary disease Wire Brusher: PSCB Transcribe Date/Time: Sep 28 2017 5:40P Dictated by : SHERRY BARTON MD This examination was interpreted and the report reviewed and electronically signed by: SHERRY BARTON MD on Sep 28 2017 5:40PM EST [id number] PROGRESS Observed: 09/28/2017 Status: COMPLETED Source: [place] 4:10 PM [facility] REPOSITORY HNO ID: [id number] Author: Gladys CollazoRtEamon Perdomo Service: (none) Author Type: Mold Closer Type: Progress Notes Filed: 09/28/2017 4:16 PM Note Text: Radiology Service Progress Note PATIENT NAME: Linda Harris DATE OF SERVICE: September 28, 2017 TIME: 4:10 PM PATIENT IDENTITY VERIFICATION COMPLETED USING TWO (2) METHODS: Patient confirmed name verbally and Date of . PATIENT GENDER DATA: Male PATIENT RELEVANT IMPLANT DATA REVIEWED: Not Applicable RADIOLOGY DEPARTMENT: General X-ray: Exam(s) Completed: Chest X-Ray PERIPHERAL IV DATA: Not applicable SIGNED BY: RT Gabriel September 28, 2017 4:10 PM CBC AND DIFFERENTIAL Collected: 09/28/2017 Status: F Source: [place] 12:29 PM [facility] REPOSITORY TYPE CODE TESTS RESULT OUT OF REFERENCE UNITS RANGE LAB WBC 3.70-11.00 k/uL WBC 7.77 LAB RBC 4.20-6.00 m/uL RBC 4.91 LAB HGB 13.0-17.0 g/dL Hemoglobin 15.2 LAB HCT 39.0-51.0 % Hematocrit 45.3 LAB MCV 80.0-100.0 fL MCV 92.3 LAB MCH 26.0-34.0 pG MCH 31.0 LAB MCHC 30.5-36.0 g/dL MCHC 33.6 LAB RDWCV 11.5-15.0 % RDW-CV 12.3 LAB PLTCT 150-400 k/uL Platelet Count 367 LAB MPV 9.0-12.7 fL MPV 10.1 LAB ANEUT % Neut% 66.0 LAB AANEUT 1.45-7.50 k/uL Abs Neut 5.10 LAB ALYMP % Lymph% 25.5 LAB AALYMP 1.00-4.00 k/uL Abs Lymph 1.98 LAB AMONO % Hamilton% 6.9 LAB AAMONO <0.87 k/uL Abs Hamilton 0.54 LAB AEOS % Eosin% 0.6 LAB AAEOS <0.46 k/uL Abs Eosin 0.05 LAB ABASO % Baso% 1.0 LAB AABASO <0.11 k/uL Abs Baso 0.08 LAB AUNRBC 0 /100 WBC NRBCs 0.0 LAB ABNRBC <0.01 k/uL Absolute nRBC <0.01 LAB DTYP DTYPE Auto Diff Performed By: #### CBCDIF, BMP #### [facility] [address] [place] [address] BASIC METABOLIC PANL Collected: 09/28/2017 Status: F Source: [place] 12:29 PM [facility] REPOSITORY TYPE CODE TESTS RESULT OUT OF REFERENCE UNITS RANGE LAB GLU 74-99 mg/dL Glucose 83 Result Comment: The [place] Diabetes Association (ADA) provides guidance for cutoff values for fasting glucose and random glucose. The ADA defines fasting as no caloric intake for at least 8 hours. Fas ting plasma glucose results between 100 to 125 mg/dL indicate increased risk for diabetes (prediabetes). Fasting plasma glucose results greater than or equal to 126 mg/dL meet the criteria for diagnosis of diabetes. In the absence of unequivocal hyperglycemia, results should be confirmed by repeat testing. In a patient with classic symptoms of hyperglycemia or hyperglycemic crisis, random plasma glucose results greater than or equal to 200 mg/dL meet the criteria for diagnosis of diabetes. Reference: Standards of Medical Care in Diabetes 2016, [place] Diabetes Association. Diabetes Care. 2016.39(Suppl 1). LAB BUN 9-24 mg/dL BUN 20 LAB CRET 0.73-1.22 mg/dL Creatinine High 1.31 LAB NA 136-144 mmol/L Sodium 142 LAB K 3.7-5.1 mmol/L Potassium 4.2 LAB CL 97-105 mmol/L Chloride 100 LAB CO2 22-30 mmol/L CO2 25 LAB AGAP 9-18 mmol/L Anion Gap 17 LAB CA 8.5-10.2 mg/dL Calcium, Total 9.7 LAB GFRAA eGFR- Amer. >60 LAB GFRNAA . eGFR-All Other Races 56 Result Comment: eGFR (Estimated GFR) Units of measure: mL/min/1.73 meters squared eGFR is derived from the reexpressed MDRD Study equation using the following parameters: serum creatinine, age, gender and race. The creatinine assay has been calibrated to be traceable to IDMS. An eGFR <60 mL/min/1.73m2 for >3 months is consistent with chronic kidney disease. Refer to KDOQI guidelines for clinical interpretation. In patients with unstable renal function, e.g. those with acute kidney injury, the eGFR may not accurately reflect actual GFR. Performed By: #### CBCDIF, BMP #### [facility] [address] [place] [id number] PROGRESS Observed: 09/28/2017 Status: COMPLETED Source: [place] 11:50 AM [facility] REPOSITORY O ID: [id number] Author: Alfonso Emerson Service: (none) Author Type: Physician Type: Progress Notes Filed: 09/28/2017 12:13 PM Note Text: Patient presents with: Pre-Op Exam HPI: Patient presents today for office visit for follow up. Nursing Notes: Ana Ash Ma 09/28/2017 11:37 AM Signed Patient presents for preop clearance. Upcoming surgery for: Right foot and ankle: hardware removal, tibial osteotomy, ankle fusion, bone graft. Surgeon is Dr [facility]arn[facility] [place]. Hx of previous anesthesia problems: No. Family hx of anesthesia problems: No. Current signs of infection: No. Chest pain: No. Shortness of breath: No. Known sleep apnea: No. Hx of clotting issues: No. Current bleeding or bruising: No. Discussed testing required for surgery. Needs refills on pain meds. He is hoping to be able to stop meds. Overall doing well otherwise. MEDICATIONS: Current Outpatient Prescriptions: fenofibrate nanocrystallized (TRICOR) 145 mg tablet TAKE 1 TABLET DAILY HYDROcodone-acetaminophen (NORCO) 5-325 mg per tablet Take 1 tablet by mouth twice daily as needed for Pain for up to 30 days.Earliest Fill Date: 08/29/17 losartan-hydrochlorothiazide (HYZAAR) 50-12.5 mg per tablet TAKE 1 TABLET DAILY gabapentin (NEURONTIN) 100 mg capsule Take 1-3 capsules by mouth at bedtime as needed (pain). No current facility-administered medications for this visit. ALLERGIES: ALLERGIES No Known Allergies PAST MEDICAL HISTORY Diagnosis Date - Acute gastritis without mention of hemorrhage - Ankle pain, right crush injury right ankle with complex tib-fib fracture: chronic pain - Back pain intermittent low back pain - Benign neoplasm of colon - Esophagitis no symptoms s/p dilitation - History of esophageal stricture 11/24/2008 - Hyperlipidemia - Hypertension with white coat effect - Panic attack heart racing, negative stress test 08/04 PAST SURGICAL HISTORY Procedure Laterality Date - COLONOSCOP W/ OR W/O [facility] SPEC 11/24/08 hyperplastic polyp, repeat due 2018 - EGD W/O OR W/BRUSH/WASH 10/29/01 EGD - ESOPH W/O [facility] SPEC [place] DIL 11/24/08 EGD stricture dilated - OPEN RX ANKLE DISLOCATN+FIXATN 1987 ORIF Ankle right - PAST SURGICAL HISTORY OF 11/26 excision = pyogenic granuloma - PAST SURGICAL HISTORY OF 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 Two children from first marriage. Lives with girlfriend. Rides dirt bike, jet ski, sprint cars. Reviewed current medications, allergies, past medical history, surgical history, family history and social history today. REVIEW OF SYSTEMS All other reviewed and negative other than HPI. HEALTH MAINTENANCE: Reviewed health maintenance issues today and recommended the following in detail. VITALS: BP 136/84 Pulse 72 Resp 16 Wt 91.2 kg (201 lb) BMI 29.68 kg/m2 Last 4 Encounter Wt Readings: Date: Wt: 09/28/2017 91.2 kg (201 lb) 08/02/2017 93 kg (205 lb) 05/30/2017 90.4 kg (199 lb 6.4 oz) 01/26/2017 91.2 kg (201 lb) PHYSICAL EXAMINATION: General appearance: Well appearing, alert, in no acute distress, well-hydrated, well nourished. Skin: Skin color, texture, turgor normal, no suspicious rashes or lesions Head: Normocephalic, no masses, lesions, tenderness or abnormalities Eyes: Anicteric sclera. Pupils are equally round and reactive to light. Extraocular movements are intact. Neck: Supple, no adenopathy; thyroid symmetric, normal size, no bruits Lungs: Lungs clear to auscultation. No wheezing, rhonchi, rales Heart: RRR without murmur, gallop, or rubs. No ectopy Abdomen: Normal abdominal exam, Abdomen soft, non-tender. Bowel sounds normal. No masses, organomegaly Extremities: No deformities, edema, skin discoloration, clubbing or cyanosis. Good capillary refill. ASSESSMENT/PLAN: 1. Right ankle pain, unspecified chronicity - ICD9: 719.47, ICD10: M25.571 (primary diagnosis) - is clear for surgery. Will do labs and testing. 2. Essential hypertension - ICD9: 401.9, ICD10: I10 - good control - Continue current medication(s) - Goal of BP <140/90 - ECG COMPLETE W INTERPRETATION - CBC + DIFF - BASIC METABOLIC PNL 3. Congenital tracheoesophageal fistula, esophageal atresia and stenosis - ICD9: 750.3, ICD10: Q39.1, Q39.3 4. Mixed hyperlipidemia - ICD9: 272.2, ICD10: E78.2 - good control - Continue current medication. 5. Asbestos exposure - ICD9: V15.84, ICD10: Z77.090 - recheck xray - XR CHEST 2V FRONTAL/LAT 6. Chronic pain oarrs done. Recently did get a small script for his dentist. Will continue meds. Our goal is to taper meds and discontinue. Will represcribe. Alfonso Emerson MD RTO in six months and prn. CNCO Observed: 09/28/2017 Status: COMPLETED Source: [place] 12:00 AM [facility] REPOSITORY Letter Text [facility] [place] [id number] TO WHOM IT MAY CONCERN: This is to confirm that Linda Harris had an appointment and was seen at the [facility] in the Department of Family Medicine Alfonso Emerson MD on 09/28/2017. Please excuse him from school for the morning. Sincerely yours, Alfonso Emerson MD OBSOLETE Observed: 09/09/2017 Status: COMPLETED Source: [place] 12:00 AM [facility] [facility] REPOSITORY Refill (FAMPWS) LINDA HARRIS ([id number]) 1960 M [facility] Date Time Provider Department 09/09/17 [facility] During your visit today, we recorded the following information about you: Karen Puente LPN 09/11/2017 10:59 AM Signed Patient has been identified by name and date of : Yes Pending Prescriptions Disp Refills FENOFIBRATE NANOCRYSTALLIZED 145 MG TABLET 90 tablet 3 Sig: TAKE 1 TABLET DAILY BARTOLO: Yes RX INSTRUCTIONS: Pharmacy initiated this request. No need to notify patient. Karen Puente LPN Allergies As of Date: 09/09/2017 (No Known Allergies) Date Reviewed: 08/18/2017 Reviewed by: Ana Ash Ma - Fully Assessed Reason for Visit: Refill Request [94] Order(s):fenofibrate nanocrystallized (TRICOR) 145 mg tabletTAKE 1 TABLET DAILYDisp: 90 tabletRfl: 3 Prescriptions as of 09/09/2017 Sig: FENOFIBRATE NANOCRYSTALLIZED * TAKE 1 TABLET DAILY HYDROCODONE 5 MG-ACETAMINOPHE* Take 1 tablet by mouth twice * LOSARTAN 50 MG-HYDROCHLOROTHI* TAKE 1 TABLET DAILY GABAPENTIN 100 MG CAPSULE Take 1-3 capsules by mouth at* Problem List As Of Date 09/09/2017 Noted Resolved Anxiety state, unspecified [F41.1] INVALID FOR* Personal history of contact with and (suspected*INVALID FOR* More... Sciatica [M54.30] INVALID FOR* Mixed hyperlipidemia [E78.2] INVALID FOR* ELEV BL PRES W/O HYPERTN [R03.0] INVALID FOR*08/26/2008 SPLENIC NODULE [D73.9] INVALID FOR* More... Chest pain, unspecified [R07.9] INVALID FOR* More... PAIN JOINT, ANKLE [M25.579] INVALID FOR*04/16/2015 HYPERTENSION NOS [I10] INVALID FOR*01/17/2009 Special screening for malignant neoplasms, colo*INVALID FOR* Benign neoplasm of colon [D12.6] INVALID FOR* Congenital tracheoesophageal fistula, esophagea*INVALID FOR* Elevated Blood Pressure Reading without Diagnos*INVALID FOR*07/18/2009 Hypertension [I10] INVALID FOR* More... Prepatellar bursitis [M70.40] INVALID FOR*07/10/2010 Routine physical examination [Z00.00] INVALID FOR*10/12/2015 CRI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
== END ==
PROVIDERS: Family Provider Family Medicine; PCP Family Medicine; Referring Provider Urology; Visit Provider Urology
DX: R97.20 Elevated prostate specific antigen [PSA] (principal)
CPT/HCPCS: 36415; 84153

== ENCOUNTER → 2019-01-14 09:13 | Outpatient (CLI) | payer OTHER, SELFPAY ==
[2019-01-14 10:48] LABS: PSA,Total- Diagnostic 4.43 ng/mL (0.0-4.0)
== END ==
PROVIDERS: Family Provider Family Medicine; PCP Family Medicine; Referring Provider Nurse Practitioner Adult Health; Visit Provider Nurse Practitioner Adult Health
DX: R97.20 Elevated prostate specific antigen [PSA] (principal)
CPT/HCPCS: 36415; 84153

== ENCOUNTER 2019-02-16 23:05 | Emergency (ER) | payer OTHER, SELFPAY ==
[2019-02-16 23:05] VITALS: BP 153/93; PULSE 96; RESP 16; TEMP 37.1; O2SAT 99; BMI 29.6
--- NOTE | 2019-02-16 23:17 | RAD_ITS ---
STUDY: X-RAY - LEFT KNEE REASON FOR EXAM: Male, 58 years old. Redness and swelling after blunt trauma of the knee. TECHNIQUE: 4 view(s) of the knee. COMPARISON: None. FINDINGS: Normal visualized distal femur. Normal visualized proximal tibia and fibula. Normal proximal tibiofibular articulation. Normal patella. Negative for fracture. Normal medial femorotibial compartment. Normal lateral femorotibial compartment. Normal patellofemoral articulation. Negative for substantial joint effusion. Anterior soft tissue swelling. RAD/Knee 4 or More Views IMPRESSION: Anterior soft tissue swelling with no underlying bone or joint abnormality. Negative for fracture, dislocation or a substantial joint effusion. Electronically Signed: Marquita Carrasco MD at 23:46 EDT , Service support ,
--- NOTE | 2019-02-17 00:14 | ED.VISSUMM ---
- ER Visit Summary Date of Service: 02/17/19 Chief Complaint: Left knee pain History of Present Illness: The patient is a 58 M who presents with left knee pain. This began yesterday. He describes it as burning. He currently rates it as 8 out of 10. It is all isolated on the from the knee. He also reports chills. He has a prior history of bursitis. Physical Examination: Afebrile vitals unremarkable Patient has erythema soft tissue swelling and tenderness in the prepatellar region. I do not appreciate fluctuance. He has no knee effusion. He has no pain with short arc range of motion. He is neurovascularly intact distally with brisk capillary refill normal sensation Alert Test Results: Knee x-ray shows anterior soft tissue swelling otherwise unremarkable Emergency Department Course and Treatment: I suspect this is prepatellar bursitis, possibly septic bursitis. This may also just be cellulitis of the anterior knee given that I do not feel a lot of fluctuance. However I am not concerned for septic arthritis. We will treat with diclofenac and Keflex. He was advised to follow-up as an outpatient. He understands to return for new or worsening symptoms. Patient discharged. Treatment Plan: [] Disposition: Discharge Impression: Prepatellar bursitis This note was generated with [employer] dictation software. It may contain incorrect words, spelling, and punctuation that were not noted in review of the chart prior to signing ED Disposition - Plan for ED Patient: Referrals: Neil Emerson MD [Primary Care Provider] -
--- NOTE | 2019-02-17 00:16 | ED.DEP ---
ED Disposition - Plan for ED Patient: Instructions: Bursitis Prescriptions: Cephalexin [Keflex] 500 mg PO Q6 #40 cap Prescription Printed Diclofenac [Voltaren] 50 mg PO BID #20 tab Prescription Printed Referrals: Neil Emerson MD [Primary Care Provider] -
[2019-02-17 00:36] VITALS: RESP 16
== END 2019-02-17 00:36 | disposition home or self-care (01) ==
LOC: ED 23:39
PROVIDERS: Emergency Provider Emergency Medicine; Family Provider Family Medicine; PCP Family Medicine
DX: M70.42 Prepatellar bursitis, left knee (principal); Y93.9 Activity, unspecified; I10 Essential (primary) hypertension; Z79.899 Other long term (current) drug therapy
CPT/HCPCS: 73564; 99283

== ENCOUNTER → 2019-03-20 08:31 | Outpatient (CLI) | payer OTHER, SELFPAY ==
[2019-03-21 12:47] LABS: PSA, Free 1.67 ng/mL; PSA, Free % 34.1 % (.); PSA, Total Ultrasensitive 4.9 ng/mL (0.0-4.0)
== END ==
PROVIDERS: Family Provider Family Medicine; PCP Family Medicine; Referring Provider Nurse Practitioner Adult Health; Visit Provider Nurse Practitioner Adult Health
DX: R97.20 Elevated prostate specific antigen [PSA] (principal); R70.0 Elevated erythrocyte sedimentation rate
CPT/HCPCS: 36415; 84153; 84154; 86038

== ENCOUNTER 2019-07-13 09:01 | Emergency (ER) | payer OTHER, SELFPAY ==
[2019-07-13 09:02] VITALS: BP 157/112; PULSE 80; RESP 16; TEMP 36.6; O2SAT 98; BMI 31.1
--- NOTE | 2019-07-13 09:19 | RAD_ITS ---
STUDY: X-RAY CHEST REASON FOR EXAM: Male, 59 years old. Chest pain TECHNIQUE: Frontal view COMPARISON: None. FINDINGS: The lungs are expanded. Mild left basilar atelectasis. Normal size heart. Normal mediastinum and diego. Normal visualized pulmonary arteries. Normal visualized aortic arch and descending thoracic aorta. Degenerative changes of the thoracic spine. Normal visualized ribs, clavicles, and shoulders. There is no demonstrated abnormality of the visualized soft tissue structures of the upper abdomen. RAD/Chest 1 View (Portable) IMPRESSION: Mild left basilar atelectasis. Electronically Signed: Vipin Winston DO at 9:43 EST Tel [phone], Service support ,
--- NOTE | 2019-07-13 09:19 | EKG12_ITS ---
Test Reason : CP Blood Pressure : / mmHG Vent. Rate : 077 BPM Atrial Rate : 077 BPM P-R Int : 164 ms QRS Dur : 094 ms QT Int : 384 ms P-R-T Axes : 049 095 068 degrees QTc Int : 434 ms Normal sinus rhythm Rightward axis Borderline ECG Confirmed by CADEN BYRNES, WESTON ([id number]), windows vmware engineer ZBIGNIEW CM ([id number]) on 07/16/2019 11:34:41 AM Referred By: FIDE Confirmed By:WESTON NEGRETE MD
--- NOTE | 2019-07-13 09:23 | ED.VIS.GEN ---
History of Present Illness Informant: Patient Narrative: 59-year-old male with history of hypertension, HLD presents with chest pain. Patient states that yesterday his chest pain began at around 9 AM. States that it was constant, all day long. Describes it as a aching pain that is deep. Denies any dyspnea, nausea, vomiting or diaphoresis with it. States that yesterday evening it did resolve. States that he took Tylenol and aspirin throughout the day yesterday. This morning he states that he got up to go to work. While driving he was having discomfort as well. Described as the same as yesterday. Lasted for about 1 hour today. Took aspirin today. Does not know how much he took but took it from a vending machine, 2 tablets. In the past he has had a stress test. Denies any tobacco use. <Mauricio Hooks - Last Filed: 07/13/19 16:00> Onset: Days Context: Gradual Onset Timing: Waxes and wanes Current Severity: Mild Maximum Severity: Moderate <Naya Fallon - Last Filed: 07/13/19 16:16> Chief Complaint: Chest Pain Past Medical History Past Medical History: - - Retention, hyperlipidemia Smoking Status: Never smoker <Mauricio Hooks - Last Filed: 07/13/19 16:00> <Naya Fallon - Last Filed: 07/13/19 16:16> - Allergies and Home Meds Allergies/Adverse Reactions: Allergies No Known Allergies Allergy (Verified 07/13/19 09:07) Primary Care Physician: Neil Emerson MD [Primary Care Provider] - 3-5 Days Review of Systems General: Denies: Chills, Fever, Sweats Eyes: Denies: Visual changes - bilaterally, Diplopia ENT: Denies: Rhinorrhea, Sore throat Cardiovascular: Denies: Chest pain, Palpitations Respiratory: Denies: Dyspnea, Cough, Dyspnea on exertion Gastrointestinal: Denies: Abdominal pain, Nausea, Vomiting, Diarrhea, Melena, Hematochezia Genitourinary: Denies: Dysuria, Hematuria, Frequency Musculoskeletal: Denies: Back pain, Extremity Pain Skin: Denies: Rash, Wounds Neurological: Denies: Headache, Weakness, Numbness <Mauricio Hooks - Last Filed: 07/13/19 16:00> Physical Exam Vital Signs/Narrative: Vital Signs Temp Pulse Resp BP Pulse Ox 07/13/19 09:02 97.9 F 80 16 157/112 H 98 General: Well nourished, Well developed, No Acute Distress Head: Normocephalic, Atraumatic Eyes: Perrl, EOMI ENT: Moist mucous membranes, No rhinorrhea Neck: Supple, Nontender Cardiovascular: Regular rate, Regular rhythm, No murmurs, - - No reproducible chest pain palpation, no skin lesions noted. Distal pulses intact x4 Respiratory: No distress, CTA bilaterally, Chest nontender Abdomen: Soft, Nontender, Nondistended, Normal bowel sounds Back: Nontender, Normal Inspection Extremities: Nontender, No edema Skin: Normal color, No rash Neurological: Alert, Oriented x3, Cranial nerves II-XII grossly intact, Normal Strength, Normal Sensation Psychological: Normal affect, Normal Mood <Mauricio Hooks - Last Filed: 07/13/19 16:00> Diagnostic/Tx/Re-eval Clinical Impression(s) from Imaging Studies Chest X-Ray 07/13/19 09:19 IMPRESSION: Mild left basilar atelectasis. Electronically Signed: Vipin Winston DO at 9:43 EST Tel [phone], Service support , Laboratory Data 07/13/19 07/13/19 09:08 09:08 WBC 6.5 RBC 5.26 Hgb 16.5 Hct 48.1 MCV 91.4 MCH 31.4 MCHC 34.3 RDW Std Deviation 41.2 RDW Coeff of Alex 12.4 Plt Count 347 MPV 9.8 Immature Gran % (Auto) 0.300 Neut % (Auto) 63.7 Lymph % (Auto) 24.8 [place] % (Auto) 9.1 Eos % (Auto) 1.2 Baso % (Auto) 0.9 Absolute Neuts (auto) 4.1 Absolute Lymphs (auto) 1.60 Nucleated RBC % 0 Sodium 140 Potassium 3.7 Chloride 107 Carbon Dioxide 26.0 Anion Gap 7 BUN 25 H Creatinine 1.28 Estim Creat Clear Calc 60.12 Est GFR (MDRD) Af Amer 74 Est GFR (MDRD) Non-Af 61 BUN/Creatinine Ratio 19.5 Glucose 107 H Calcium 9.2 Troponin I < 0.015 - Rhythm Strip Rhythm Strip: - Sinus rhythm at 71 bpm. VT interval 164, QRS 94, QTc 434. Normal axis. No ST elevation, ST depression. No ischemic changes appreciated. - Medical Decision Making Was evaluated for chest pain. Had a long stretch of chest pain yesterday. Has had 1 hour of chest pain today. Is asymptomatic at this time. Has already taken aspirin today. Heart score of 3. Cardiac work-up initiated. Had unremarkable EKG, troponin negative. Rest of labs are unremarkable. Normal chest x-ray. I discussion with the patient about doing a delta troponin. This was offered. However, patient declined. At this time I feel patient safe to be discharged home. Given that he had a long-standing episode of pain yesterday and a normal work-up I feel that he is safe to be discharged. Instructed to follow-up with his primary care provider early next week. Patient was in agreement the plan and discharged. <Mauricio Hooks - Last Filed: 07/13/19 16:00> - EKG Initial EKG Interpretation: Sinus Rhythm - Sinus rhythm at 77 with no acute ischemia. - Medical Decision Making Patient is seen and evaluated with resident. Patient presents with chest pain. 4 days ago he states he had a brief sharp chest pain. Yesterday had chest pressure all day at work. It seemed to resolve last night when he went to sleep. He was pain-free this morning but pain did recur after going back to work today. He denies lightheadedness or dizziness. He states he does have chronic chest pain, but this pain feels different. Head neck examination unremarkable. Heart regular rate and rhythm. Lung sounds are clear. There is no chest wall tenderness. Abdomen is soft nontender. Lower external examination reveals no calf tenderness or edema. Skin examination was no rash or lesions. EKG and labs are unremarkable. At this time patient is comfortable with discharge to home. He is to return for worsening symptoms or concerns. He will follow-up with his primary care physician. <Naya Fallon - Last Filed: 07/13/19 16:16> ED Disposition <Mauricio Hooks - Last Filed: 07/13/19 16:00> <Naya Fallon - Last Filed: 07/13/19 16:16> - Plan for ED Patient: Disposition: Home or Assisted Living Diagnosis: Chest pain Instructions: CHEST PAIN, Uncertain Cause Referrals: Neil Emerson MD [Primary Care Provider] - 3-5 Days
[2019-07-13 09:27] VITALS: BP 159/114; PULSE 76; RESP 14; O2SAT 95
[2019-07-13 09:28] LABS: Absolute Neutrophil Count 4.1 X10^3/uL (2.0-7.7); Basophil# 0.06 X10^3/uL; Basophil% 0.9 % (0-1); Eosinophil# 0.08 X10^3/uL; Eosinophils% 1.2 % (0-5); Hematocrit 48.1 % (40-54); Hemoglobin 16.5 g/dL (13.0-16.5); Lymphocyte % 24.8 % (19-41); Mean Corp Hgb Conc 34.3 g/dL (32-36); Mean Corpuscular Hgb 31.4 pg (27.0-32.0); Mean Corpuscular Volume 91.4 fL (80-94); Mean Platelet Vol. 9.8 fl (6.2-12.0); Monocyte# 0.59 X10^3/uL; Monocyte% 9.1 % (0-10); NRBC Flagged by Analyzer 0 % (0-5); Neutrophil % 63.7 % (47-70); Platelet Count 347 K/mm3 (150-450); RBC Distribution Width CV 12.4 % (11.6-14.6); RBC Distribution Width SD 41.2 fl (35.1-43.9); Red Blood Count 5.26 M/mm3 (4.6-6.2); White Blood Count 6.5 K/mm3 (4.4-11.0)
[2019-07-13 09:53] LABS: Anion Gap 7 (5-15); BUN 25 mg/dL (7-18); BUN/Creat Ratio 19.5 RATIO (10-20); Calcium,Total 9.2 mg/dL (8.5-10.1); Chloride 107 mmol/L (98-107); Creatinine, Serum 1.28 mg/dL (0.70-1.30); EST Glomerular Filtration Rate 61 mL/min (>60); Est Glom Filt Rate - Afr Amer 74 mL/min (>60); Estimated Creatinine Clearance 60.12 ml/min; Glucose 107 mg/dL (74-106); Potassium 3.7 mmol/L (3.5-5.1); Sodium Level 140 mmol/L (136-145)
[2019-07-13 10:08] VITALS: BP 141/93; PULSE 85; RESP 18; O2SAT 98
[2019-07-13 10:47] VITALS: BP 144/94; PULSE 72; RESP 14; O2SAT 99
== END 2019-07-13 10:48 | disposition home or self-care (01) ==
PROVIDERS: Emergency Provider Emergency Medicine; Family Provider Family Medicine; PCP Family Medicine
DX: R07.9 Chest pain, unspecified (principal); I10 Essential (primary) hypertension; E78.5 Hyperlipidemia, unspecified; R33.9 Retention of urine, unspecified; Z79.899 Other long term (current) drug therapy
CPT/HCPCS: 71045; 80048; 84484; 85025; 93005; 99284; A4216

== ENCOUNTER → 2019-08-29 15:53 | Outpatient (CLI) | payer OTHER, SELFPAY ==
[2019-08-29 17:28] LABS: PSA,Total- Diagnostic 4.71 ng/mL (0.0-4.0)
[2019-08-31 13:00] LABS: PSA, Free 1.06 ng/mL; PSA, Free % 30.3 % (.); PSA, Total Ultrasensitive 3.5 ng/mL (0.0-4.0)
== END ==
LOC: LAB.FUTURE 15:54 → LAB 16:02
PROVIDERS: Family Provider Family Medicine; PCP Family Medicine; Visit Provider Nurse Practitioner Adult Health
DX: R97.20 Elevated prostate specific antigen [PSA] (principal)
CPT/HCPCS: 36415; 84153; 84154

== ENCOUNTER → 2020-09-01 09:24 | Outpatient (CLI) | payer OTHER, SELFPAY ==
[2020-09-02 20:56] LABS: PSA, Free 1.45 ng/mL; PSA, Free % 30.9 % (.); PSA, Total Ultrasensitive 4.7 ng/mL (0.0-4.0)
== END ==
PROVIDERS: PCP Family Medicine; Referring Provider Nurse Practitioner Adult Health; Visit Provider Nurse Practitioner Adult Health
DX: R97.20 Elevated prostate specific antigen [PSA] (principal)
CPT/HCPCS: 36415; 84153; 84154

== ENCOUNTER → 2022-02-15 | Outpatient (CLI) | payer OTHER, SELFPAY ==
[2022-02-15 11:08] LABS: PSA,Total- Diagnostic 4.55 ng/mL (0.0-4.0)
== END | disposition home or self-care (01) ==
LOC: LAB 09:53
PROVIDERS: PCP Family Medicine; Referring Provider Urology; Visit Provider Urology
DX: R97.20 Elevated prostate specific antigen [PSA] (principal)
CPT/HCPCS: 36415; 84153

== ENCOUNTER → 2023-06-06 | Outpatient (CLI) | payer OTHER, SELFPAY ==
--- NOTE | 2023-06-06 17:54 | STRESSREP ---
Stress Test Report Exercise stress test. 62-year-old man with a history of chest pain Stress protocol: Resting EKG demonstrates normal sinus rhythm with a rate of 66 bpm resting blood pressure is 140/98 mmHg. The patient exercised according to the regular [facility] protocol for a total duration of 9 minutes attaining a maximum heart rate of 153 bpm which was 96% of maximum predicted heart rate; the maximum workload was 10.1 metabolic equivalents. At rest there were no ST or T wave changes noted to suggest ischemia and at peak exercise upsloping ST changes only were noted which did not meet the criteria for ischemia. No clinical angina was noted the test was terminated due to the target heart rate being achieved/fatigue. The peak blood pressure was 210/108 mmHg. Rate-pressure product was [address]. Conclusion: Normal exercise stress test at a high workload
== END | disposition home or self-care (01) ==
PROVIDERS: PCP Family Medicine; Referring Provider Physician Assistant; Visit Provider Physician Assistant
DX: M79.602 Pain in left arm (principal)
CPT/HCPCS: 93017

== ENCOUNTER → 2023-10-24 | Outpatient (CLI) | payer OTHER, SELFPAY ==
--- OUTSIDE RECORDS SUMMARY | 2023-10-24 10:02 | XMS RPT_ITS | CCD ---
Author Name Unknown Address [address] [place] [address] Organization [facility] Care Team Providers Care Manager [employer] Name Role Phone Alfonso Emerson Unavailable FLOYD DARNELL Unavailable Unavaila ble FLOYD DARNELL Unavailable Unavaila ALFONSO Lora Unavailable Unavailable Idania BYRNES, Alfonso Chandra Primary Care Provider Alfonso Emerson MD Primary Care Provider Alfonso Emerson MD Primary Care Provider TWAN PEREZ Referring Unavailable IDANIA, ALFONSO Chandra Primary Care Unavailable ALFONSO EMERSON Referring Unavailable ALFONSO EMERSON Primary Care Unavailable ALFONSO EMERSON Attending Unavailable ALFONSO EMERSON Primary Care Unavailable ALFONSO EMERSON Primary Care Unavailable ALFONSO EMERSON Primary Care Unavailable ISACC DAVIS Referring Unavailable ISACC DAVIS Attending Unavailable ALFONSO EMERSON Primary Care Unavailable Samuel BARKLEY Attending Unavailable ALFONSO EMERSON Primary Care Unavailable ALFONSO EMERSON Referring Unavailable ISACC DAVIS Attending Unavailable ALFONSO EMERSON Primary Care Unavailable ALFONSO EMERSON Referring Unavailable ALFONSO EMERSON Primary Care Unavailable ALFONSO EMERSON Attending Unavailable Allergies Allergy Classification Reported Allergen(s) Allergy Type Date of Onset Reaction(s) Facility (20 sources) meloxicam; Translations: [MELOXICAM] Drug Allergy 10-14-2019 GI Upset [facility] Work Phone: Medications Current Medications Medication Drug Class(es) Dates Sig (Normalized) Sig (Original) enteric contrast (will be provided with radiology test) (1 source) Start: 01-08-2022 End: 01-09-2022 enteric contrast (will be provided with radiology test) Indications: Lower abdominal pain For CT ABD/PEL W IVCON Routine order Administer, As Directed One Time Only, via Oral, Rectal, both Oral and Rectal, Enteric Tube, Stoma or Indwelling Catheter, Enteric Contrast as designated per enteric contrast guidelines 1 Each 0 01/08/2022 01/09/2022 Active Completed/Discontinued Medications Medication Drug Class(es) Dates Sig (Normalized) Sig (Original) cephalexin 500 mg oral capsule (3 sources) Cephalosporin Antibacterial Start: 2022 End: 07-01-2022 take 1 capsule by mouth twice daily cephALEXin (KEFLEX) 500 mg capsule Take 1 capsule by mouth twice daily for 7 days. 14 capsule 0 2022 07/01/2022 Discontinued Problems Active Problems Problem Classification Problem Date Documented Date Episodic/Chronic Abdominal hernia (2 sources) Bilateral inguinal hernia, without obstruction or gangrene, not specified as recurrent; Translations: [Bilateral inguinal hernia] Onset: 03-14-2023 03-14-2023 Episodic Abdominal pain (5 sources) Lower abdominal pain; Translations: [Lower abdominal pain, unspecified] Onset: 03-14-2023 Episodic Anxiety disorders (20 sources) Anxiety state; Translations: [Generalized anxiety disorder] Onset: 06-27-2007 01-14-2011 Chronic Calculus of urinary tract (1 source) Ureteric stone; Translations: [Calculus of ureter] Episodic Digestive congenital anomalies (20 sources) Esophageal atresia, stenosis and fistula; Translations: [Atresia of esophagus with tracheo-esophageal fistula] Onset: 11-24-2008 01-14-2011 Chronic Disorders of lipid metabolism (20 sources) Mixed hyperlipidemia; Translations: [Mixed hyperlipidemia] Onset: 06-27-2007 Chronic Essential hypertension (20 sources) Essential hypertension; Translations: [Essential (primary) hypertension] Onset: 07-18-2009 Chronic Genitourinary symptoms and ill-defined conditions (1 source) Dysuria; Translations: [Dysuria] Episodic Hyperplasia of prostate (20 sources) Benign prostatic hyperplasia; Translations: [Benign prostatic hyperplasia without lower urinary tract symptoms] Onset: 05-28-2013 05-28-2013 Chronic Immunizations and screening for infectious disease (1 source) Vaccination needed; Translations: [Encounter for immunization] Episodic Joint disorders and dislocations; trauma-related (20 sources) Traumatic arthropathy of the ankle and/or foot; Translations: [Traumatic arthropathy, unspecified ankle and foot] Onset: 04-28-2015 07-10-2017 Chronic Nonspecific chest pain (1 source) Chest pain; Translations: [Other chest pain] 03-06-2023 Episodic Other and unspecified benign neoplasm (20 sources) Benign neoplasm of colon; Translations: [Benign neoplasm of colon, unspecified] Onset: 11-24-2008 11-02-2021 Episodic Other and unspecified benign neoplasm (2 sources) History of polyp of colon; Translations: [Personal history of colonic polyps] Episodic Other connective tissue disease (1 source) Pain in left arm; Translations: [Pain in left arm] Episodic Other liver diseases (1 source) Steatosis of liver; Translations: [Fatty (change of) liver, not elsewhere classified] Chronic Other nervous system disorders (1 source) Other chronic pain; Translations: [Chronic midline low back pain without sciatica] Onset: 07-01-2022 Chronic Spondylosis; intervertebral disc disorders; other back problems (2 sources) Degeneration of lumbar intervertebral disc; Translations: [Other intervertebral disc degeneration, lumbar region] Chronic Unclassified (1 source) Chronic midline low back pain without sciatica; Translations: [Chronic midline low back pain without sciatica] Onset: 07-01-2022 Past or Other Problems Problem Classification Problem Date Documented Da te Episodic/Chronic Disorders of teeth and jaw (20 sources) Temporomandibular joint disorder; Translations: [Unspecified temporomandibular joint disorder, unspecified side] Onset: 7 02-08-2017 Episodic Inflammatory conditions of male genital organs (20 sources) Prostatitis; Translations: [Inflammatory disease of prostate, unspecified] Onset: 3 05-28-2013 Episodic Other and unspecified benign neoplasm (1 source) Benign neoplasm of colon, unspecified; Translations: [Benign neoplasm of colon, unspecified part of colon] Onset: 2 Episodic Other and unspecified benign neoplasm (1 source) Personal history of colonic polyps; Translations: [History of colonic polyps] Onset: 3 Episodic Other gastrointestinal disorders (12 sources) Alteration in bowel elimination; Translations: [Change in bowel habit] Onset: 8 03-02-2018 Episodic Other gastrointestinal disorders (11 sources) Altered bowel function; Translations: [Change in bowel habit] Onset: 8 03-02-2018 Episodic Other hematologic conditions (20 sources) Disorder of spleen; Translations: [Disease of spleen, unspecified] Onset: 8 01-14-2011 Episodic Other male genital disorders (20 sources) Pain in male genitalia; Translations: [Other specified disorders of the male genital organs] Onset: 3 05-28-2013 Episodic Other non-traumatic joint disorders (2 sources) Other instability, right ankle; Translations: [Other instability, right ankle] Onset: 7 Episodic Other non-traumatic joint disorders (20 sources) Joint pain; Translations: [Pain in unspecified joint] Onset: 4 03-14-2014 Episodic Other non-traumatic joint disorders (20 sources) Ankle pain; Translations: [Pain in right ankle and joints of right foot] Onset: 5 08-23-2021 Episodic Other non-traumatic joint disorders (10 sources) Instability of joint of right ankle; Translations: [Other instability, right ankle] Onset: 8 11-30-2022 Episodic Other screening for suspected conditions (not mental disorders or infectious disease) (15 sources) Patient encounter status; Translations: [Encounter for screening for other disorder] Onset: 8 Episodic Residual codes; unclassified (20 sources) Contact with and (suspected) exposure to asbestos; Translations: [Personal history of contact with and (suspected) exposure to asbestos] Onset: 7 09-28-2017 Episodic Spondylosis; intervertebral disc disorders; other back problems (20 sources) Sciatica; Translations: [Sciatica, unspecified side] Onset: 7 01-14-2011 Episodic Results Test Name Value Interpretation Reference Range Facil ity Vital Signs Date Time Vital Sign Value Performing Clinician Moisés burleson 03-14-2023 11:30-0400 Heart rate 70 /min Isacc Davis MD Work Phone: [facility] 03-14-2023 11:30-0400 SaO2% (BldA) [Mass fraction] 99 % Isacc Davis MD Work Phone: [facility] 03-14-2023 11:20-0400 Diastolic blood pressure 82 mm[Hg] Isacc Davis MD Work Phone: [facility] 03-14-2023 11:20-0400 Systolic blood pressure 143 mm[Hg] Isacc Davis MD Work Phone: [facility] 03-14-2023 11:10-0400 Respiratory rate 16 /min Isacc Davis MD Work Phone: [facility] 03-14-2023 09:17-0400 Body temperature 98.1 [degF] Isacc Davis MD Work Phone: [facility] 03-14-2023 09:17-0400 Body weight 90.3 kg Isacc Davis MD Work Phone: [facility] 02-16-2023 10:56-0400 Body weight 90.27 kg NA Barkley PA-C Work Phone: [facility] 02-16-2023 10:56-0400 Diastolic blood pressure 64 mm[Hg] NA Barkley PA-C Work Phone: [facility] 02-16-2023 10:56-0400 Heart rate 70 /min NA Barkley PA-C Work Phone: [facility] 02-16-2023 10:56-0400 Respiratory rate 16 /min NA Barkley PA-C Work Phone: [facility] 02-16-2023 10:56-0400 SaO2% (BldA) [Mass fraction] 98 % NA Barkley PA-C Work Phone: [facility] 02-16-2023 10:56-0400 Systolic blood pressure 120 mm[Hg] NA Barkley PA-C Work Phone: [facility] 11-30-2022 08:58-0400 Body height 172.7 cm Alfonso Emerson MD Work Phone: [facility] 11-30-2022 08:58-0400 Body weight 92.99 kg Alfonso Emerson MD Work Phone: [facility] 11-30-2022 08:58-0400 Diastolic blood pressure 76 mm[Hg] Alfonso Emerson MD Work Phone: [facility] 11-30-2022 08:58-0400 Heart rate 68 /min Alfonso Emerson MD Work Phone: [facility] 11-30-2022 08:58-0400 SaO2% (BldA) [Mass fraction] 99 % Alfonso Emerson MD Work Phone: [facility] 11-30-2022 08:58-0400 Systolic blood pressure 122 mm[Hg] Alfonso Emerson MD Work Phone: [facility] 07-01-2022 14:01-0400 Body height 172.7 cm Alfonso Emerson MD Work Phone: [facility] 07-01-2022 14:01-0400 Body weight 90.72 kg Alfonso Emerson MD Work Phone: [facility] 07-01-2022 14:01-0400 Diastolic blood pressure 88 mm[Hg] Alfonso Emerson MD Work Phone: [facility] 07-01-2022 14:01-0400 Heart rate 96 /min Alfonso Emerson MD Work Phone: [facility] 07-01-2022 14:01-0400 SaO2% (BldA) [Mass fraction] 97 % Alfonso Emerson MD Work Phone: [facility] 07-01-2022 14:01-0400 Systolic blood pressure 138 mm[Hg] Alfonso Emerson MD Work Phone: [facility] 2022 11:00-0400 Body temperature 97.9 [degF] Twan Gusman MEDICAL AFFAIRS MANAGER.PULP DRIER FIRER Work Phone: [facility] 2022 11:00-0400 Body weight 90.99 kg Twan Gusman MEDICAL AFFAIRS MANAGER.PULP DRIER FIRER Work Phone: [facility] 2022 11:00-0400 Diastolic blood pressure 84 mm[Hg] Twan Gusman MEDICAL AFFAIRS MANAGER.PULP DRIER FIRER Work Phone: [facility] 2022 11:00-0400 Heart rate 70 /min Twan Uzma MEDICAL AFFAIRS MANAGER.PULP DRIER FIRER Work Phone: [facility] 2022 11:00-0400 Respiratory rate 16 /min Twancarola Gusman MEDICAL AFFAIRS MANAGER.PULP DRIER FIRER Work Phone: [facility] 2022 11:00-0400 SaO2% (BldA) [Mass fraction] 98 % Twan Uzma MEDICAL AFFAIRS MANAGER.PULP DRIER FIRER Work Phone: [facility] 2022 11:00-0400 Systolic blood pressure 144 mm[Hg] Twan Uzma MEDICAL AFFAIRS MANAGER.PULP DRIER FIRER Work Phone: [facility] 03-16-2022 10:09-0400 Diastolic blood pressure 80 mm[Hg] Alfonso Emerson MD Work Phone: [facility] 03-16-2022 10:09-0400 Systolic blood pressure 126 mm[Hg] Alfonso Emerson MD Work Phone: [facility] 03-16-2022 09:21-0400 Body weight 90.81 kg Alfonso Emerson MD Work Phone: [facility] 03-16-2022 09:21-0400 Heart rate 64 /min Alfonso Emerson MD Work Phone: [facility] 03-16-2022 09:21-0400 Respiratory rate 16 /min Alfonso Emerson MD Work Phone: [facility] 01-08-2022 09:21-0400 Body weight 87.54 kg Alfonso Emerson MD Work Phone: [facility] 01-08-2022 09:21-0400 Diastolic blood pressure 82 mm[Hg] Alfonso Emerson MD Work Phone: [facility] 01-08-2022 09:21-0400 Heart rate 80 /min Alfonso Emerson MD Work Phone: [facility] 01-08-2022 09:21-0400 Systolic blood pressure 144 mm[Hg] Alfonso Emerson MD Work Phone: [facility] Encounters Encounter Date Encounter Type Care Provider Facility Start: 06-07-2023 Telephone encounter M Floyd Filippo ECKERT Work Phone: [facility] Procedures Date Procedure Procedure Detail Performing Clinician Start: 03-14-2023 Level iv surg pathology gross&microscopic exam Isacc Davis MD Work Phone: Start: 03-14-2023 Esophagogastroduodenoscopy transoral diagnostic Isacc Davis MD Work Phone: Start: 03-14-2023 Colonoscopy flx dx w/collj spec when pfrmd Isacc Davis MD Work Phone: Start: 03-14-2023 Colonoscopy Alfonso Emerson MD Work Phone: Start: 12-13-2022 Lipid 1996 panel - Serum or Plasma NA Ba neel ECKERT Work Phone: Start: 08-17-2022 Mri spinal canal lumbar w/o contrast material [facility] Provider Start: 07-01-2022 INFLUENZA VACCINE QUADRIVALENT 6 MO - 64 YRS IM Alfonso Emerson MD Work Phone: Start: 2022 Urnls dip stick/tablet rgnt auto w/o microscopy Twan Gusman APRN.PULP DRIER FIRER Work Phone: Start: 01-26-2022 Ct abdomen & pelvis w/contrast material Alfonso Emerson MD Work Phone: Start: 01-08-2022 Adult depression screening assessment Alfonso Emerson MD Work Phone: Start: 03-13-2018 Colonoscopy Alfonso Emerson MD Work Phone: Plan of Treatment Date Care Activity Detail Author Start: 11-30-2032 Urine microalbumin profile [facility] Start: 12-14-2027 Lipid 1996 panel - S ernestina or Plasma Lipid Screening [facility] Start: 12-14-2027 LIPID SCREEN LIPID SCREEN [facility] Start: 12-14-2027 PROSTATE CANCER SCRE ENING DISCUSSION PROSTATE CANCER SCREENING DISCUSSION [facility] Start: 03-15-2027 LIPID SCREEN LIPID SCREEN [facility] Start: 03-15-2027 PROSTATE CANCER SCRE ENING DISCUSSION PROSTATE CANCER SCREENING DISCUSSION [facility] Start: 03-14-2026 Colonoscopy COLONOSCOPY [facility] Start: 03-14-2026 COLORECTAL CANCER SCREENING COLORECTAL CANCER SCREENING [facility] Start: 12-13-2025 DIABETES SCREEN DIABETES SCREEN [facility] Start: 12-13-2025 Diabetes Screening Diabetes Screenin g [facility] Start: 11-02-2025 LIPID SCREEN LIPID SCREEN [facility] Start: 11-02-2024 DIABETES SCREEN DIABETES SCREEN [facility] Start: 02-23-2024 PROSTATE CANCER SCRE ENING DISCUSSION PROSTATE CANCER SCREENING DISCUSSION [facility] Start: 02-17-2024 ANNUAL PCP TEAM BEFORE AND AFTER SCHOOL DAYCARE WORKER CAM DISEASE VISIT ANNUAL PCP TEAM CHRONIC DISEASE VISIT [facility] Start: 02-17-2024 BP CONTROLLED (<130/80) BP CONTROLLE D (<130/80) [facility] Start: 12-01-2023 ANNUAL PCP TEAM BEFORE AND AFTER SCHOOL DAYCARE WORKER CAM DISEASE VISIT ANNUAL PCP TEAM CHRONIC DISEASE VISIT [facility] Start: 12-01-2023 BP CONTROLLED (<130/80) BP CONTROLLE D (<130/80) [facility] Start: 12-01-2023 COVID-19 VACCINE (4 - Booster for Pfizer series) COVID-19 VACCINE (4 - Booster for Pfizer series) [facility] Immunizations Immunization Date Immunization Notes Care Provider Fa matthew 11-30-2022 tetanus toxoid, redu wally diphtheria toxoid, and acellular pertussis vaccine, adsorbed Alfonso Emerson MD Work Phone: [facility] 07-01-2022 influenza, injectabl e, quadrivalent, contains preservative Alfonso Emerson MD Work Phone: [facility] 07-01-2022 influenza virus vaccine, unspecified formulation SHIELA Barkley PA-C Work Phone: [facility] 06-05-2017 influenza, seasonal, injectable Alfonso Emerson MD Work Phone: [facility] Work Phone: 08-13-2012 tetanus toxoid, redu wally diphtheria toxoid, and acellular pertussis vaccine, adsorbed Alfonso Emerson MD Work Phone: [facility] Work Phone: 06-12-2012 influenza virus vaccine, unspecified formulation Alfonso Emerson MD Work Phone: [facility] Work Phone: Payers Date Payer Category Payer Private Health Insurance [facility] CHOICE PLUS [id number] 2020-Present [phone] [address] [place] [address] HMO [id number] 2020 Private Health Insurance [facility] CHOICE PLUS [id number] 2020-Present [phone] [address] [place] [address] HMO [id number] 2020 Unknown [id number] 2010 Private Health Insurance [id number] Social History Date Type Detail Facility [facility]: 08-16-[facility] Work Phone: Start: 1960 Sex Assigned At Not on file [facility] Work Phone: Start: 09-05-2011 Tobacco smoking stat [facility] Never smoked tobacco [facility] Start: 01-08-2022 End: 2022 Alcohol intake Current non-drinker of alcohol (finding) [facility] Start: 06-15-2020 History SDOH Alcohol Frequency 2 [facility] Start: 06-15-2020 History SDOH Alcohol Std Drinks 1 [facility] Start: 09-24-2011 History SDOH Alcohol Comment rare [facility] Start: 06-15-2020 History SDOH Social Connections Phone 5 [facility] Start: 06-15-2020 History SDOH Social Connections Yarsani 98 [facility] Start: 06-15-2020 History SDOH Social Connections Living 8 [facility] Start: 06-15-2020 History SDOH Physica l Activity MPS 12 [facility] Start: 12-28-2021 End: 07-01-2022 Exposure to SARS-CoV-2 (event) Not sure [facility] Start: 09-05-2011 Tobacco use and exposure Smoke less tobacco non-user [facility] Start: 01-15-2022 End: 02-16-2023 History of Social function [facility] Work Phone: Start: 01-15-2022 End: 02-16-2023 Tobacco use panel [facility] Work Phone: Adult Depression Screening Assessment 0 [facility] Work Phone: Do you belong to any clubs or organizations such as pentecostalism groups, unions, fraternal or athletic groups, or school groups? No [facility] Are you now , , , , never or living with a partner? Living with partner [facility] How often to you hav e a drink containing alcohol? Monthly or less [facility] How many standard dr inks containing alcohol do you have on a typical day? 1 or 2 [facility] How often do you hav e 6 or more drinks on 1 occasion? Never [facility] Do you feel stress - tense, restless, nervous, or anxious, or unable to sleep at night because your mind is troubled all the time - these days [OSQ] Only a little [facility] (I/We) worried wheth er (my/our) food would run out before (I/we) got money to buy more. Never true [facility] Clinical Notes 01-14-2011 to 06-12-2023 Telephone Encounter - Carley Riojas - 06/12/2023 11:21 AM EDTTelephone Encounter - Alfonso Emerson MD - 06/12/2023 10:58 AM EDTTelephone Encounter - Augusta Rodriguez RN - 06/12/2023 10:02 AM EDT Note Date & Type Note Facility 06-12-2023 Miscellaneous Notes Patient informed and refuses to schedule any appointments at this time. Carley Riojas Can follow up with us for bp. Sounds like he needs to follow with ortho or pain management for the other issues. Pt called and is notified of providers results. Pt voices understanding. Pt states he has neck pain on the L side and numbness in the R hand. He states his BP had been elevated. He had testing done to check the flow of the arteries in his neck and says that everything came back normal. 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 He reports he still gets the numbness in his R hand and it comes and goes. It's better when he is using his had, but when he is using the cooling tower operator and it is vibrating his hand it is worse. He has seen Dr Moore once, and he isn't sure about going back or not. Augusta Rodriguez, RN Left message to call and speak with nurse. Please let him know the stress test was normal. Has he had any further sx? Thanks, Dg Barkley PA-C Stress test result placed on desk for review. documented in this encounter [facility] 03-29-2023 Miscellaneous Notes Patient has been identified by name and date of : Pharmacy phones for refill(s): Requested Prescriptions Pending Prescriptions Disp Refills losartan-hydroCHLOROthiazide (HYZAAR) 50-12.5 mg per tablet 90 tablet 1 Sig: Take 1 tablet by mouth once daily. Date of last office visit in primary care: 02/16/2023, no future appt scheduled Last 2 Encounter Wt Readings: Date: Wt: 03/14/2023 90.3 kg (199 lb 1.2 oz) 02/16/2023 90.3 kg (199 lb) Previous labs/tests for medication: Blood Pressure: BUN (mg/dL) Date Value 12/13/2022 22 11/02/2020 20 Sodium (mmol/L) Date Value 12/13/2022 142 11/02/2020 140 Last 1 Encounter BP Readings: Date: BP: 03/14/2023 143/82 Please advise. Thank you. Kati Darling LPN documented in this encounter [facility] 03-14-2023 Nurse Note Patient received in phase II via cart left lateral position, eyes open, alert to self and event, skin warm and dry, respirations regular and unlabored. Abdomen softly distended, denies pain or nausea. Resting comfortably on left side. documented in this encounter [facility] 03-14-2023 History and physical note UPDATED PROCEDURAL SEDATION HISTORY AND PHYSICAL EXAMINATION SERVICE DATE: 03/14/2023 SERVICE TIME: 9:59 AM PHYSICAL EXAM MUST BE COMPLETED ON ADMISSION PROCEDURE: Procedure Indications: The History and Physical (completed in the past 30 days) has been reviewed and the patient has been examined. The contents accurately reflect the patient's condition with the following additions or revisions since the H&P was completed. ASA Class: ASA Class:: Patient with mild systemic disease Examination indicates no changes. AIRWAY: Airway Visualization of Uvula: Yes Mouth opening greater than 2 fingerbreadths: Yes Neck Full Range of Motion: Yes LUNGS: Lungs clear to auscultation CARDIAC: Regular rhythm,Regular rate Provisional Diagnosis/Treatment Plan: history of colon plyps, history of esophageal stenosis - EGD and Colonoscopy SEDATION GOAL: Moderate This H&P can be found in the attached. SIGNATURE: Isacc Davis MD PATIENT NAME: Danilo Stock DATE: March 14, 2023 TIME: 9:59 AM Source Note - Isacc Davis MD - 03/14/2023 9:45 AM EDT Images from the original note were not included. HISTORY AND PHYSICAL Danilo Stock 1960 REFERRING PHYSICIAN: Alfonso Emerson MD CHIEF COMPLAINT: Consult (Colonoscopy consult) HPI: The patient is a 62 year old male referred for endoscopy. Danilo notes left lower quadrant pain and lower abdominal pain which has been present for about 3 years. For the past year he has noted more migrating pain more in the suprapubic area and the inguinal areas. He also notes that when he awakes in the morning around 5 AM he will have transient left lower quadrant pain that lasts for a few minutes. He notes he is quite regular and usually is a bowel movement in the morning. The pain usually is gone before he has his bowel movement. His symptoms are not affected by eating. He denies black tarry stools or blood in his stools or other difficulties. I performed colonoscopy 5 years previously which demonstrated adenomatous polyps. He returns for his follow-up colonoscopy. Dr. Emerson performed a CT scan and an MRI scan. The patient noted to have some spinal stenosis. He was also noted to have bilateral inguinal hernias which are small a small umbilical hernia. He was not noted to have diverticulosis. He was also noted to have kidney stones and an enlarged prostate. The patient while he denies current upper GI complaints he had had a previous history of esophageal stenosis with dilation. One of the concerns from Dr. Emerson was could his more upper symptoms be related to an occult ulcer The patient is being seen by me today at the request of Dr. Alfonso Emerson MD for my opinion and advice regarding the above symptoms. PAST MEDICAL HISTORY PAST MEDICAL HISTORY Diagnosis Date Acute gastritis without mention of hemorrhage Ankle pain, right crush injury right ankle with complex tib-fib fracture: chronic pain Back pain intermittent low back pain Benign neoplasm of colon Esophagitis no symptoms s/p dilitation History of esophageal stricture 11/24/2008 Hyperlipidemia Hypertension with white coat effect Panic attack heart racing, negative stress test 08/04 PAST SURGICAL HISTORY PAST SURGICAL HISTORY Procedure Laterality Date ANKLE SURGERY HX 10/12/2017 COLONOSCOPY FLX DX W/COLLJ SPEC WHEN PFRMD 11/24/08 hyperplastic polyp, repeat due 2019 COLONOSCOPY FLX DX W/COLLJ SPEC WHEN PFRMD 03/13/2018 two small adenomatous polyps, repeat in 5 years ESOPHAGOGASTRODUODENOSCOPY TRANSORAL DIAGNOSTIC 10/29/01 EGD ESOPHAGOSCOPY FLEX BALLOON DILAT <30 MM DIAM 11/24/08 EGD stricture dilated OPTX ANKLE DISLOCATION W/REPAIR/INT/XTRNL FIXJ 1988 ORIF Ankle right PAST SURGICAL HISTORY OF 11/26 excision = pyogenic granuloma 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 fenofibrate nanocrystallized (TRICOR) 145 mg tablet Take 1 tablet by mouth once daily. No current facility-administered medications for this visit. ALLERGIES: Meloxicam PERSONAL HISTORY: SOCIAL HISTORY Social History Tobacco Use Smoking status: Never Smokeless tobacco: Never Vaping Use Vaping Use: Never used Substance Use Topics Alcohol use: No Comment: rare Drug use: Yes Comment: CBD oil FAMILY HISTORY: FAMILY HISTORY FAMILY HISTORY Problem Relation Age of Onset Heart Paternal Uncle Diabetes Paternal Grandmother Emphysema Father age 69 Thyroid Sister Thyroid Sister REVIEW OF SYMPTOMS: REVIEW OF SYSTEMS: General: The patient denies fatigue, denies weight loss, denies weight gain, denies feeling hot, and feelings of cold. Eyes: The patient denies glaucoma, denies eye injury/surgery, denies glasses or contacts. Ear/Nose/Throat: The patient denies allergies, denies hayfever, denies ear infections, and denies bloody noses. Cardiovascular: The patient notes chest pain, denies heart disease, denies high blood pressure, notes high cholesterol, and denies poor circulation. Respiratory: The patient denies tuberculosis, denies pneumonia, denies frequent cough, denies shortness of breath, and denies coughing up blood. Gastrointestinal: The patient denies difficulty swallowing, denies acid reflux, denies ulcers, denies jaundice/hepatitis, denies gallbladder problems, denies vomiting, denies black or tarry stools, denies hemorrhoids, denies bleeding from rectum, denies diverticulitis, denies constipation, denies diarrhea, denies loss of stool control, and notes hernias. Kidney/Bladder: The patient denies kidney stones, denies urine infections, and denies bloody urine. Skin: The patient denies a history of skin cancer, denies bleeding/changing moles, and denies a history of skin rash. Neurologic: The patient denies a history of epilepsy/convulsions, denies headaches, denies head/spinal injuries, and denies stroke/TIA. Psychiatric: The patient denies psychiatric medications, denies depression, and denies voices. Endocrine: The patient denies thyroid disorders, denies diabetes, and denies hormonal problems. Hematologic: The patient denies a history of bruising, denies bleeding, and denies anemia. Infections: The patient denies a history of measles and mumps, denies rheumatic fever, and denies sexually transmitted diseases. Musculoskeletal: The patient notes back pain/injury, notes back problems, denies sciatica, denies knee/foot trouble, denies arthritis, or denies gout. PHYSICAL EXAMINATION: General: The patient is 62 year old male, well nourished, well hydrated in no acute distress. The patient is oriented to time, place, and person. VITALS: Blood pressure 138/80, pulse 64, temperature 36.3 C (97.3 F), height 172.7 cm (5' 8 ), weight 92.1 kg (203 lb), SpO2 100 %. Body mass index is 30.87 kg/m . HEENT: Normal cephalic, ataumatic, pupils are equally round, sclera are anicteric, mucous membranes are moist, oropharynx is clear. Neck has no masses, asymmetry or lymphadenopathy. Thyroid is unremarkable. Respiratory: Clear to auscultation and percussion. Normal respiratory excursion and pattern. Cardiac: Examination is regular rate and rhythm. Abdominal exam: Soft, nontender, with no palpable masses. No hepatosplenomegaly. Asymptomatic umbilical and bilateral inguinal hernias Rectal exam: exam deferred Extremities: no clubbing, cyanosis or edema. No adenopathy. Other: LABORATORY VALUES: As Noted RADIOLOGIC STUDIES: As Noted Assessment IMPRESSION: Vague left lower quadrant pain suprapubic pain and some higher pain history of colon polyps, history of esophageal stenosis PLAN: I plan to perform upper and lower endoscopy. We discussed the risks and benefits of the planned endoscopy. I have informed the patient that complications can occur including failure to complete the endoscopy and perforation. The patient had the opportunity to ask questions concerning the planned endoscopy. My staff has also explained the procedure to the patient in understandable terms and has given the patient printed material concerning the procedure. The patient freely consents to surgery. I plan to use golytely bowel preparation for endoscopy His hernias are currently asymptomatic. We discussed that if his hernia seem to be enlarging in size or become symptomatic then we should consider repair. Given 3 hernias outperform laparoscopic repair of all 3 at the same time. Diagnoses: (K40.20) Non-recurrent bilateral inguinal hernia without obstruction or gangrene (primary encounter diagnosis) (R10.30) Lower abdominal pain (Z86.010) History of colonic polyps My findings have been communicated to Dr. Alfonso Emerson MD via shared medical record. This note will be forwarded to Dr. Alfonso Emerson MD. Return to Clinic: The patient is instructed to follow-up with me after the testing has been completed. Isacc Davis MD Images from the original note were not included. HISTORY AND PHYSICAL Danilo Stock 1960 REFERRING PHYSICIAN: Alfonso Emerson MD CHIEF COMPLAINT: Consult (Colonoscopy consult) HPI: The patient is a 62 year old male referred for endoscopy. aDnilo notes left lower quadrant pain and lower abdominal pain which has been present for about 3 years. For the past year he has noted more migrating pain more in the suprapubic area and the inguinal areas. He also notes that when he awakes in the morning around 5 AM he will have transient left lower quadrant pain that lasts for a few minutes. He notes he is quite regular and usually is a bowel movement in the morning. The pain usually is gone before he has his bowel movement. His symptoms are not affected by eating. He denies black tarry stools or blood in his stools or other difficulties. I performed colonoscopy 5 years previously which demonstrated adenomatous polyps. He returns for his follow-up colonoscopy. Dr. Emerson performed a CT scan and an MRI scan. The patient noted to have some spinal stenosis. He was also noted to have bilateral inguinal hernias which are small a small umbilical hernia. He was not noted to have diverticulosis. He was also noted to have kidney stones and an enlarged prostate. The patient while he denies current upper GI complaints he had had a previous history of esophageal stenosis with dilation. One of the concerns from Dr. Emerson was could his more upper symptoms be related to an occult ulcer The patient is being seen by me today at the request of Dr. Alfonso Emerson MD for my opinion and advice regarding the above symptoms. PAST MEDICAL HISTORY PAST MEDICAL HISTORY Diagnosis Date Acute gastritis without mention of hemorrhage Ankle pain, right crush injury right ankle with complex tib-fib fracture: chronic pain Back pain intermittent low back pain Benign neoplasm of colon Esophagitis no symptoms s/p dilitation History of esophageal stricture 11/24/2008 Hyperlipidemia Hypertension with white coat effect Panic attack heart racing, negative stress test 08/04 PAST SURGICAL HISTORY PAST SURGICAL HISTORY Procedure Laterality Date ANKLE SURGERY HX 10/12/2017 COLONOSCOPY FLX DX W/COLLJ SPEC WHEN PFRMD 11/24/08 hyperplastic polyp, repeat due 2018 COLONOSCOPY FLX DX W/COLLJ SPEC WHEN PFRMD 03/13/2018 two small adenomatous polyps, repeat in 5 years ESOPHAGOGASTRODUODENOSCOPY TRANSORAL DIAGNOSTIC 10/29/01 EGD ESOPHAGOSCOPY FLEX BALLOON DILAT <30 MM DIAM 11/24/08 EGD stricture dilated OPTX ANKLE DISLOCATION W/REPAIR/INT/XTRNL FIXJ 1988 ORIF Ankle right PAST SURGICAL HISTORY OF 11/26 excision = pyogenic granuloma 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 fenofibrate nanocrystallized (TRICOR) 145 mg tablet Take 1 tablet by mouth once daily. No current facility-administered medications for this visit. ALLERGIES: Meloxicam PERSONAL HISTORY: SOCIAL HISTORY Social History Tobacco Use Smoking status: Never Smokeless tobacco: Never Vaping Use Vaping Use: Never used Substance Use Topics Alcohol use: No Comment: rare Drug use: Yes Comment: CBD oil FAMILY HISTORY: FAMILY HISTORY FAMILY HISTORY Problem Relation Age of Onset Heart Paternal Uncle Diabetes Paternal Grandmother Emphysema Father age 69 Thyroid Sister Thyroid Sister REVIEW OF SYMPTOMS: REVIEW OF SYSTEMS: General: The patient denies fatigue, denies weight loss, denies weight gain, denies feeling hot, and feelings of cold. Eyes: The patient denies glaucoma, denies eye injury/surgery, denies glasses or contacts. Ear/Nose/Throat: The patient denies allergies, denies hayfever, denies ear infections, and denies bloody noses. Cardiovascular: The patient notes chest pain, denies heart disease, denies high blood pressure, notes high cholesterol, and denies poor circulation. Respiratory: The patient denies tuberculosis, denies pneumonia, denies frequent cough, denies shortness of breath, and denies coughing up blood. Gastrointestinal: The patient denies difficulty swallowing, denies acid reflux, denies ulcers, denies jaundice/hepatitis, denies gallbladder problems, denies vomiting, denies black or tarry stools, denies hemorrhoids, denies bleeding from rectum, denies diverticulitis, denies constipation, denies diarrhea, denies loss of stool control, and notes hernias. Kidney/Bladder: The patient denies kidney stones, denies urine infections, and denies bloody urine. Skin: The patient denies a history of skin cancer, denies bleeding/changing moles, and denies a history of skin rash. Neurologic: The patient denies a history of epilepsy/convulsions, denies headaches, denies head/spinal injuries, and denies stroke/TIA. Psychiatric: The patient denies psychiatric medications, denies depression, and denies voices. Endocrine: The patient denies thyroid disorders, denies diabetes, and denies hormonal problems. Hematologic: The patient denies a history of bruising, denies bleeding, and denies anemia. Infections: The patient denies a history of measles and mumps, denies rheumatic fever, and denies sexually transmitted diseases. Musculoskeletal: The patient notes back pain/injury, notes back problems, denies sciatica, denies knee/foot trouble, denies arthritis, or denies gout. PHYSICAL EXAMINATION: General: The patient is 62 year old male, well nourished, well hydrated in no acute distress. The patient is oriented to time, place, and person. VITALS: Blood pressure 138/80, pulse 64, temperature 36.3 C (97.3 F), height 172.7 cm (5' 8 ), weight 92.1 kg (203 lb), SpO2 100 %. Body mass index is 30.87 kg/m . HEENT: Normal cephalic, ataumatic, pupils are equally round, sclera are anicteric, mucous membranes are moist, oropharynx is clear. Neck has no masses, asymmetry or lymphadenopathy. Thyroid is unremarkable. Respiratory: Clear to auscultation and percussion. Normal respiratory excursion and pattern. Cardiac: Examination is regular rate and rhythm. Abdominal exam: Soft, nontender, with no palpable masses. No hepatosplenomegaly. Asymptomatic umbilical and bilateral inguinal hernias Rectal exam: exam deferred Extremities: no clubbing, cyanosis or edema. No adenopathy. Other: LABORATORY VALUES: As Noted RADIOLOGIC STUDIES: As Noted Assessment IMPRESSION: Vague left lower quadrant pain suprapubic pain and some higher pain history of colon polyps, history of esophageal stenosis PLAN: I plan to perform upper and lower endoscopy. We discussed the risks and benefits of the planned endoscopy. I have informed the patient that complications can occur including failure to complete the endoscopy and perforation. The patient had the opportunity to ask questions concerning the planned endoscopy. My staff has also explained the procedure to the patient in understandable terms and has given the patient printed material concerning the procedure. The patient freely consents to surgery. I plan to use golytely bowel preparation for endoscopy His hernias are currently asymptomatic. We discussed that if his hernia seem to be enlarging in size or become symptomatic then we should consider repair. Given 3 hernias outperform laparoscopic repair of all 3 at the same time. Diagnoses: (K40.20) Non-recurrent bilateral inguinal hernia without obstruction or gangrene (primary encounter diagnosis) (R10.30) Lower abdominal pain (Z86.010) History of colonic polyps My findings have been communicated to Dr. Alfonso Emerson MD via shared medical record. This note will be forwarded to Dr. Alfonso Emerson MD. Return to Clinic: The patient is instructed to follow-up with me after the testing has been completed. Isacc Davis MD documented in this encounter [facility] 03-06-2023 Miscellaneous Notes Pt notified of provider message. Ana Riley Ma An exercise stress test will demonstrate ischemia if present and is much less expensive than a nuclear stress test with low suspicion (but not zero suspicion) for a cardiac source of his pain. A nuclear test also shows ischemia with a bit more accuracy due to dye, but also high risk and much more expensive. Only a heart cath shows blockages. He does not qualify for a heart cath. I can place orders for nuclear stress but insurance may not cover with normal EKG and his ability to do a treadmill. Telephone on 03/06/23 IV DISCONTINUE NM CARDIAC PERF STRESS/EXERCISE INSERT IV ([place]) Other chest pain (primary encounter diagnosis) Thanks, Dg Barkley PA-C Patient calling asking since he has 5000 dollar deductible on his insurance, why he can not have the Nuclear medicine stress test done? He wants to make sure he does not have issues with clogged arteries and the treadmill stress test will not show that. Please advise documented in this encounter [facility] 02-16-2023 Note HNO ID: [id number] Author: Samuel Barkley PA-C Service: ? Author Type: Physician Conveyor Worker Type: Progress Notes Filed: 02/16/2023 12:49 PM Note Text: 62 year old male with c/o neck pain x 5 weeks. Left posterior and anterior, radiating in jaw, ear, down left arm. Had teeth pulled recently Told he was grinding. 2 teeth pulled. Ongoing 5 weeks. Comes and goes. Concerned about heart issues. Feels gets weakness in both arms. Wants to be checked for heart issues with EKG. Asking for testosterone supplements for bone health and muscle development. Taking to several people who are taking supplements and they feel better. HISTORIES FAMILY HISTORY Problem Relation Age of Onset Heart Paternal Uncle Diabetes Paternal Grandmother Emphysema Father age 69 Thyroid Sister Thyroid Sister PAST MEDICAL HISTORY Diagnosis Date Acute gastritis without mention of hemorrhage Ankle pain, right crush injury right ankle with complex tib-fib fracture: chronic pain Back pain intermittent low back pain Benign neoplasm of colon Esophagitis no symptoms s/p dilitation History of esophageal stricture 11/24/2008 Hyperlipidemia Hypertension with white coat effect Panic attack heart racing, negative stress test 08/04 PAST SURGICAL HISTORY Procedure Laterality Date ANKLE SURGERY HX 10/12/2017 COLONOSCOPY FLX DX W/COLLJ SPEC WHEN PFRMD 11/24/08 hyperplastic polyp, repeat due 2018 COLONOSCOPY FLX DX W/COLLJ SPEC WHEN PFRMD 03/13/2018 two small adenomatous polyps, repeat in 5 years ESOPHAGOGASTRODUODENOSCOPY TRANSORAL DIAGNOSTIC 10/29/01 EGD ESOPHAGOSCOPY FLEX BALLOON DILAT <30 MM DIAM 11/24/08 EGD stricture dilated OPTX ANKLE DISLOCATION W/REPAIR/INT/XTRNL FIXJ 1987 ORIF Ankle right PAST SURGICAL HISTORY OF 11/26 excision = pyogenic granuloma PAST SURGICAL HISTORY OF 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 VASECTOMY UNI/BI SPX W/POSTOP SEMEN EXAMS Social History Tobacco Use Smoking status: Never Smokeless tobacco: Never Vaping Use Vaping Use: Never used Substance Use Topics Alcohol use: No Comment: rare Drug use: Yes Comment: CBD oil ACTIVE PROBLEM LIST Anxiety State, Unspecified Asbestos Exposure Sciatica Mixed Hyperlipidemia SPLENIC NODULE 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 90 tablet 1 fenofibrate nanocrystallized (TRICOR) 145 mg tablet Take 1 tablet by mouth once daily. 90 tablet 3 No current facility-administered medications for this visit. BP CONTROLLED (<130/80) Never done COLORECTAL CANCER SCREENING due on 03/13/2023 EXAM: BP 120/64 Pulse 70 Resp 16 Wt 90.3 kg (199 lb) SpO2 98% BMI 30.26 kg/m? Pleasant well appearing overweight adult male in no acute distress. Alert and oriented all spheres. Normal affect and cognition. Speech normal. No deficits to learning or comprehension. Skin warm, dry, pink to lips and nailbeds. Normal turgor. Respirations regular and unlabored. HEENT: NCAT. No scleral icterus or conjunctival injection. TM's clear. Nose and oropharynx free from injection or lesion. Oral membranes moist and pink. No cervical lymph nodes. Thyroid non-tender, no masses, or enlargement. Carotids pulses 2+/4+ without bruits. No JVD with HOB at 30 degrees. Tender trigger points in lateral left neck and shoulder which reproduce pain. Myofascial release not successful in resolution. Chest is normal shape. Lungs are clear to all marinelli with good air exchange through out. HRRR without murmur or gallop. No lifts, heaves, or rubs. No chest wall tenderness. Extrem: no clubbing or cyanosis. Edema: none. Extremities are warm and pink with prompt capillary refill. ASSESSMENT/PLAN: 1. Left arm pain - ICD9: 729.5, ICD10: M79.602 Patient concerned about cardiac. Explained rationale why this cannot be ruled out in office, would need to go to ER for immediate care. Exam is more consistent with radicular irritation, hx cervical spondylosis. EKG NSR without ischemic change pending cardiology review. Schedule exercise stress out-patient for further evaluation. If pain or concerning sx: go to ED immediately. - ECG COMPLETE - EXERCISE STRESS ECG (WITHOUT IMAGING) Offered PT, pain management if desired: declines Explained use of testosterone indications and limitations/ risks Has concer (more content not included)... [facility] 02-16-2023 Instructions M Floyd Barkley PA-C - 02/16/2023 11:33 AM EDT Chest pain: When to seek help -- If you have chest pain that is new, severe, prolonged, or if chest pain causes concern, call 911 immediately. The emergency medical services (EMS) personnel in your community are prepared to respond rapidly, and will take you to the nearest hospital. For a patient having a heart attack, every minute is important. Remember, the faster you get to a hospital, the sooner you can receive treatment. Do not drive yourself to the hospital and do not ask someone else to drive you. Calling 911 is safer than driving for two reasons: From the moment EMS personnel arrive, they can begin evaluating and treating chest pain. If you drive to the hospital, treatment cannot begin until you arrive in the emergency department. If a dangerous complication of a heart attack (eg, a serious irregular heart rhythm) occurs on the way to the hospital, EMS personnel are trained to treat the problem immediately. While waiting for the squad, rest sitting or laying down and try to remain calm. If you are not allergic: chew 4 Baby Aspirin or 2 adult aspirin. Aspirin has been shown to reduce incidence and severity with heart attacks. documented in this encounter [facility] 02-16-2023 History of Presen t illness Narrative 62 year old male with c/o neck pain x 5 weeks. Left posterior and anterior, radiating in jaw, ear, down left arm. Had teeth pulled recently Told he was grinding. 2 teeth pulled. Ongoing 5 weeks. Comes and goes. Concerned about heart issues. Feels gets weakness in both arms. Wants to be checked for heart issues with EKG. Asking for testosterone supplements for bone health and muscle development. Taking to several people who are taking supplements and they feel better. HISTORIES FAMILY HISTORY Problem Relation Age of Onset Heart Paternal Uncle Diabetes Paternal Grandmother Emphysema Father age 69 Thyroid Sister Thyroid Sister PAST MEDICAL HISTORY Diagnosis Date Acute gastritis without mention of hemorrhage Ankle pain, right crush injury right ankle with complex tib-fib fracture: chronic pain Back pain intermittent low back pain Benign neoplasm of colon Esophagitis no symptoms s/p dilitation History of esophageal stricture 11/24/2008 Hyperlipidemia Hypertension with white coat effect Panic attack heart racing, negative stress test 08/04 PAST SURGICAL HISTORY Procedure Laterality Date ANKLE SURGERY HX 10/12/2017 COLONOSCOPY FLX DX W/COLLJ SPEC WHEN PFRMD 11/24/08 hyperplastic polyp, repeat due 2019 COLONOSCOPY FLX DX W/COLLJ SPEC WHEN PFRMD 03/13/2018 two small adenomatous polyps, repeat in 5 years ESOPHAGOGASTRODUODENOSCOPY TRANSORAL DIAGNOSTIC 10/29/01 EGD ESOPHAGOSCOPY FLEX BALLOON DILAT <30 MM DIAM 11/24/08 EGD stricture dilated OPTX ANKLE DISLOCATION W/REPAIR/INT/XTRNL FIXJ 1987 ORIF Ankle right PAST SURGICAL HISTORY OF 11/26 excision = pyogenic granuloma PAST SURGICAL HISTORY OF 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 VASECTOMY UNI/BI SPX W/POSTOP SEMEN EXAMS Social History Tobacco Use Smoking status: Never Smokeless tobacco: Never Vaping Use Vaping Use: Never used Substance Use Topics Alcohol use: No Comment: rare Drug use: Yes Comment: CBD oil ACTIVE PROBLEM LIST Anxiety State, Unspecified Asbestos Exposure Sciatica Mixed Hyperlipidemia SPLENIC NODULE 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 90 tablet 1 fenofibrate nanocrystallized (TRICOR) 145 mg tablet Take 1 tablet by mouth once daily. 90 tablet 3 No current facility-administered medications for this visit. BP CONTROLLED (<130/80) Never done COLORECTAL CANCER SCREENING due on 03/13/2023 EXAM: BP 120/64 Pulse 70 Resp 16 Wt 90.3 kg (199 lb) SpO2 98% BMI 30.26 kg/m Pleasant well appearing overweight adult male in no acute distress. Alert and oriented all spheres. Normal affect and cognition. Speech normal. No deficits to learning or comprehension. Skin warm, dry, pink to lips and nailbeds. Normal turgor. Respirations regular and unlabored. HEENT: NCAT. No scleral icterus or conjunctival injection. TM's clear. Nose and oropharynx free from injection or lesion. Oral membranes moist and pink. No cervical lymph nodes. Thyroid non-tender, no masses, or enlargement. Carotids pulses 2+/4+ without bruits. No JVD with HOB at 30 degrees. Tender trigger points in lateral left neck and shoulder which reproduce pain. Myofascial release not successful in resolution. Chest is normal shape. Lungs are clear to all marinelli with good air exchange through out. HRRR without murmur or gallop. No lifts, heaves, or rubs. No chest wall tenderness. Extrem: no clubbing or cyanosis. Edema: none. Extremities are warm and pink with prompt capillary refill. ASSESSMENT/PLAN: 1. Left arm pain - ICD9: 729.5, ICD10: M79.602 Patient concerned about cardiac. Explained rationale why this cannot be ruled out in office, would need to go to ER for immediate care. Exam is more consistent with radicular irritation, hx cervical spondylosis. EKG NSR without ischemic change pending cardiology review. Schedule exercise stress out-patient for further evaluation. If pain or concerning sx: go to ED immediately. - ECG COMPLETE - EXERCISE STRESS ECG (WITHOUT IMAGING) Offered PT, pain management if desired: declines Explained use of testosterone indications and limitations/ risks Has concerns about copays with this and issues with colonoscopy which was switched from screening to diagnostic due to tubular adenoma 30 minute visit with multiple questions, teaching, education Samuel Barkley PA-C documented in this encounter [facility] 02-09-2023 Miscellaneous Notes Called and left message for patient, patient identified self on voiced mail. Updated that order is a screening unless biopsy taken or high risk and can be changed to diagnostic. 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 Gave phone number to contact for billing questions. [phone] Vale Howell LPN Patient is concerned about his insurance not covering the colonoscopy, stated he wants the nursing staff to call and explain if procedure is preventative. Please advise, thank you. documented in this encounter [facility] 01-05-2023 Note HNO ID: [id number] Author: Isacc Davis MD Service: ? Author Type: Physician Type: Progress Notes Filed: 01/05/2023 10:03 AM Note Text: HISTORY AND PHYSICAL Danilo Stock 1960 REFERRING PHYSICIAN: Alfonso Emerson MD CHIEF COMPLAINT: Consult (Colonoscopy consult) HPI: The patient is a 62 year old male referred for endoscopy. Danilo notes left lower quadrant pain and lower abdominal pain which has been present for about 3 years. For the past year he has noted more migrating pain more in the suprapubic area and the inguinal areas. He also notes that when he awakes in the morning around 5 AM he will have transient left lower quadrant pain that lasts for a few minutes. He notes he is quite regular and usually is a bowel movement in the morning. The pain usually is gone before he has his bowel movement. His symptoms are not affected by eating. He denies black tarry stools or blood in his stools or other difficulties. I performed colonoscopy 5 years previously which demonstrated adenomatous polyps. He returns for his follow-up colonoscopy. Dr. Emerson performed a CT scan and an MRI scan. The patient noted to have some spinal stenosis. He was also noted to have bilateral inguinal hernias which are small a small umbilical hernia. He was not noted to have diverticulosis. He was also noted to have kidney stones and an enlarged prostate. The patient while he denies current upper GI complaints he had had a previous history of esophageal stenosis with dilation. One of the concerns from Dr. Emerson was could his more upper symptoms be related to an occult ulcer The patient is being seen by me today at the request of Dr. Alfonso Emerson MD for my opinion and advice regarding the above symptoms. PAST MEDICAL HISTORY Diagnosis Date Acute gastritis without mention of hemorrhage Ankle pain, right crush injury right ankle with complex tib-fib fracture: chronic pain Back pain intermittent low back pain Benign neoplasm of colon Esophagitis no symptoms s/p dilitation History of esophageal stricture 11/24/2008 Hyperlipidemia Hypertension with white coat effect Panic attack heart racing, negative stress test 08/04 PAST SURGICAL HISTORY Procedure Laterality Date ANKLE SURGERY HX 10/12/2017 COLONOSCOPY FLX DX W/COLLJ SPEC WHEN PFRMD 11/24/08 hyperplastic polyp, repeat due 2019 COLONOSCOPY FLX DX W/COLLJ SPEC WHEN PFRMD 03/13/2018 two small adenomatous polyps, repeat in 5 years ESOPHAGOGASTRODUODENOSCOPY TRANSORAL DIAGNOSTIC 10/29/01 EGD ESOPHAGOSCOPY FLEX BALLOON DILAT <30 MM DIAM 11/24/08 EGD stricture dilated OPTX ANKLE DISLOCATION W/REPAIR/INT/XTRNL FIXJ 1987 ORIF Ankle right PAST SURGICAL HISTORY OF 11/26 excision = pyogenic granuloma PAST SURGICAL HISTORY 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 fenofibrate nanocrystallized (TRICOR) 145 mg tablet Take 1 tablet by mouth once daily. No current facility-administered medications for this visit. ALLERGIES: Meloxicam PERSONAL HISTORY: Social History Tobacco Use Smoking status: Never Smokeless tobacco: Never Vaping Use Vaping Use: Never used Substance Use Topics Alcohol use: No Comment: rare Drug use: Yes Comment: CBD oil FAMILY HISTORY: FAMILY HISTORY Problem Relation Age of Onset Heart Paternal Uncle Diabetes Paternal Grandmother Emphysema Father age 69 Thyroid Sister Thyroid Sister REVIEW OF SYMPTOMS: REVIEW OF SYSTEMS: General: The patient denies fatigue, denies weight loss, denies weight gain, denies feeling hot, and feelings of cold. Eyes: The patient denies glaucoma, denies eye injury/surgery, denies glasses or contacts. Ear/Nose/Throat: The patient denies allergies, denies hayfever, denies ear infections, and denies bloody noses. Cardiovascular: The patient notes chest pain, denies heart disease, denies high blood pressure, notes high cholesterol, and denies poor circulation. Respiratory: The patient denies tuberculosis, denies pneumonia, denies frequent cough, denies shortness of breath, and denies coughing up blood. Gastrointestinal: The patient denies difficulty swallowing, denies acid reflux, denies ulcers, denies jaundice/hepatitis, denies gallbladder problems, denies vomiting, denies black or tarry stools, denies hemorrhoids, denies bleeding from rectum, denies diverticulitis, denies constipation, denies diarrhea, denies loss of stool control, and notes hernias. Kidney/Bladder: The patient denies kidney stones, denies urine infections, and denies bloody urine. Skin: The patient denies a history of skin cancer, denies bleeding/changing moles, and denies a history of skin jackson (more content not included)... [facility] 01-05-2023 Miscellaneous Notes Patient requesting prep Golytely be sent to [facility] please see pended order below Anne Marie Dueñas [employer] 03/14/2023 COLON ASC documented in this encounter [facility] 11-30-2022 Note HNO ID: [id number] Author: Alfonso Emerson MD Service: ? Author Type: Physician Type: Progress Notes Filed: 11/30/2022 10:52 AM Note Text: Patient presents with: Physical HPI: Patient presents today for office visit for physical. Still with occasional llq pain. Has had ct scans etc. He is due coming up for repeat colonoscopy. No heartburn. No new bowel changes. Sees urology. HTN: Monitors BP Stable Intermittent chest pain - chronic. Patient mentions more muscle related. No SOB No headaches or dizziness No palpitations No syncope No edema HLD: Currently taking Tricor. Lipids down. Back and neck pain. Has thoracic back pain as well. Saw [facility]. X-rays and MRI completed. He did physical therapy. Doing [employer] which is helping. Does get worse with working. MEDICATIONS: Current Outpatient Medications Medication Sig losartan-hydroCHLOROthiazide (HYZAAR) 50-12.5 mg per tablet Take 1 tablet by mouth once daily. fenofibrate nanocrystallized (TRICOR) 145 mg tablet Take 1 tablet by mouth once daily. No current facility-administered medications for this visit. ALLERGIES: ALLERGIES Allergen Reactions Meloxicam GI Upset PAST MEDICAL HISTORY Diagnosis Date Acute gastritis without mention of hemorrhage Ankle pain, right crush injury right ankle with complex tib-fib fracture: chronic pain Back pain intermittent low back pain Benign neoplasm of colon Esophagitis no symptoms s/p dilitation History of esophageal stricture 11/24/2008 Hyperlipidemia Hypertension with white coat effect Panic attack heart racing, negative stress test 08/04 PAST SURGICAL HISTORY Procedure Laterality Date ANKLE SURGERY HX 10/12/2017 COLONOSCOPY FLX DX W/COLLJ SPEC WHEN PFRMD 11/24/08 hyperplastic polyp, repeat due 2019 COLONOSCOPY FLX DX W/COLLJ SPEC WHEN PFRMD 03/13/2018 two small adenomatous polyps, repeat in 5 years ESOPHAGOGASTRODUODENOSCOPY TRANSORAL DIAGNOSTIC 10/29/01 EGD ESOPHAGOSCOPY FLEX BALLOON DILAT <30 MM DIAM 11/24/08 EGD stricture dilated OPTX ANKLE DISLOCATION W/REPAIR/INT/XTRNL FIXJ 1987 ORIF Ankle right PAST SURGICAL HISTORY OF 11/26 excision = pyogenic granuloma PAST SURGICAL 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 REVIEW OF SYSTEMS NECK: Negative for lumps, goiter, pain and significant neck swelling RESPIRATORY: Negative for cough, hemoptysis, wheezing, COPD, dyspnea or shortness of breath SKIN: has a scaly area on his right knee. Discussed using a steroid cream for two weeks.call if any changes. All other reviewed and negative other than HPI. HEALTH MAINTENANCE: Reviewed health maintenance issues today and recommended the following in detail. HIV SCREENING Never done BP CONTROLLED (<130/80) Never done SHINGRIX VACCINE(1 of 2) Never done COVID-19 VACCINE(4 - Booster for Pfizer series) due on 09/20/2021 DTAP,TDAP,TD(2 - Td or Tdap) due on 08/13/2022 DEPRESSION ASSESSMENT due on 08/28/2022 VITALS: BP 122/76 Pulse 68 Ht 172.7 cm (5' 8 ) Wt 93 kg (205 lb) SpO2 99% BMI 31.17 kg/m? Last 4 Encounter Wt Readings: Date: Wt: 07/01/2022 90.7 kg (200 lb) 2022 91 kg (200 lb 9.6 oz) 03/16/2022 90.8 kg (200 lb 3.2 oz) 01/08/2022 87.5 kg (193 lb) PHYSICAL EXAMINATION: General appearance: Skin: Skin color, texture, turgor normal, no suspicious rashes or lesions Head: as above. Eyes: Anicteric sclera. Pupils are equally round and reactive to light. Extraocular movements are intact. Oropharynx: Lips, mucosa, and tongue normal, teeth and gums normal, oropharynx normal Neck: Supple, no adenopathy; thyroid symmetric, normal size, no bruits Lungs: Lungs clear to auscultation. No wheezing, rhonchi, rales Heart: RRR without murmur, gallop, or rubs. No ectopy Abdomen: Normal abdominal exam, Abdomen soft, non-tender. Bowel sounds normal. No masses, organomegaly Extremities: No deformities, edema, skin discoloration, clubbing or cyanosis. Good capillary refill. Musculoskeletal: No joint swelling, deformity, or tenderness ASSESSMENT/PLAN: 1. Well adult exam - ICD9: V70.0, ICD10: Z00.00 (primary diagnosis) - follow progress. 2. DDD (degenerative disc disease), lumbar - ICD9: 722.52, ICD10: M51.36 - continue therapy. 3. Benign prostatic hyperplasia with lower urinary tract symptoms, symptom details unspecified - ICD9: 600.01, ICD10: N40.1 - see urology 4. Low (more content not included)... [facility] 11-30-2022 History of Presen t illness Narrative Patient presents with: Physical HPI: Patient presents today for office visit for physical. Still with occasional llq pain. Has had ct scans etc. He is due coming up for repeat colonoscopy. No heartburn. No new bowel changes. Sees urology. HTN: Monitors BP Stable Intermittent chest pain - chronic. Patient mentions more muscle related. No SOB No headaches or dizziness No palpitations No syncope No edema HLD: Currently taking Tricor. Lipids down. Back and neck pain. Has thoracic back pain as well. Saw [facility]. X-rays and MRI completed. He did physical therapy. Doing [employer] which is helping. Does get worse with working. MEDICATIONS: Current Outpatient Medications Medication Sig losartan-hydroCHLOROthiazide (HYZAAR) 50-12.5 mg per tablet Take 1 tablet by mouth once daily. fenofibrate nanocrystallized (TRICOR) 145 mg tablet Take 1 tablet by mouth once daily. No current facility-administered medications for this visit. ALLERGIES: ALLERGIES Allergen Reactions Meloxicam GI Upset PAST MEDICAL HISTORY Diagnosis Date Acute gastritis without mention of hemorrhage Ankle pain, right crush injury right ankle with complex tib-fib fracture: chronic pain Back pain intermittent low back pain Benign neoplasm of colon Esophagitis no symptoms s/p dilitation History of esophageal stricture 11/24/2008 Hyperlipidemia Hypertension with white coat effect Panic attack heart racing, negative stress test 08/04 PAST SURGICAL HISTORY Procedure Laterality Date ANKLE SURGERY HX 10/12/2017 COLONOSCOPY FLX DX W/COLLJ SPEC WHEN PFRMD 11/24/08 hyperplastic polyp, repeat due 2018 COLONOSCOPY FLX DX W/COLLJ SPEC WHEN PFRMD 03/13/2018 two small adenomatous polyps, repeat in 5 years ESOPHAGOGASTRODUODENOSCOPY TRANSORAL DIAGNOSTIC 10/29/01 EGD ESOPHAGOSCOPY FLEX BALLOON DILAT <30 MM DIAM 11/24/08 EGD stricture dilated OPTX ANKLE DISLOCATION W/REPAIR/INT/XTRNL FIXJ 1987 ORIF Ankle right PAST SURGICAL HISTORY OF 11/26 excision = pyogenic granuloma PAST SURGICAL 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 REVIEW OF SYSTEMS NECK: Negative for lumps, goiter, pain and significant neck swelling RESPIRATORY: Negative for cough, hemoptysis, wheezing, COPD, dyspnea or shortness of breath SKIN: has a scaly area on his right knee. Discussed using a steroid cream for two weeks.call if any changes. All other reviewed and negative other than HPI. HEALTH MAINTENANCE: Reviewed health maintenance issues today and recommended the following in detail. HIV SCREENING Never done BP CONTROLLED (<130/80) Never done SHINGRIX VACCINE(1 of 2) Never done COVID-19 VACCINE(4 - Booster for Pfizer series) due on 09/20/2021 DTAP,TDAP,TD(2 - Td or Tdap) due on 08/13/2022 DEPRESSION ASSESSMENT due on 08/28/2022 VITALS: BP 122/76 Pulse 68 Ht 172.7 cm (5' 8 ) Wt 93 kg (205 lb) SpO2 99% BMI 31.17 kg/m Last 4 Encounter Wt Readings: Date: Wt: 07/01/2022 90.7 kg (200 lb) 2022 91 kg (200 lb 9.6 oz) 03/16/2022 90.8 kg (200 lb 3.2 oz) 01/08/2022 87.5 kg (193 lb) PHYSICAL EXAMINATION: General appearance: Skin: Skin color, texture, turgor normal, no suspicious rashes or lesions Head: as above. Eyes: Anicteric sclera. Pupils are equally round and reactive to light. Extraocular movements are intact. Oropharynx: Lips, mucosa, and tongue normal, teeth and gums normal, oropharynx normal Neck: Supple, no adenopathy; thyroid symmetric, normal size, no bruits Lungs: Lungs clear to auscultation. No wheezing, rhonchi, rales Heart: RRR without murmur, gallop, or rubs. No ectopy Abdomen: Normal abdominal exam, Abdomen soft, non-tender. Bowel sounds normal. No masses, organomegaly Extremities: No deformities, edema, skin discoloration, clubbing or cyanosis. Good capillary refill. Musculoskeletal: No joint swelling, deformity, or tenderness ASSESSMENT/PLAN: 1. Well adult exam - ICD9: V70.0, ICD10: Z00.00 (primary diagnosis) - follow progress. 2. DDD (degenerative disc disease), lumbar - ICD9: 722.52, ICD10: M51.36 - continue therapy. 3. Benign prostatic hyperplasia with lower urinary tract symptoms, symptom details unspecified - ICD9: 600.01, ICD10: N40.1 - see urology 4. Lower abdominal pain - ICD9: 789.09, ICD10: R10.30 - CONSULT TO GENERAL SURGERY 5. History of colonic polyps - ICD9: V12.72, ICD10: Z86.010 - CONSULT TO GENERAL SURGERY 6. Screening for prostate cancer - ICD9: V76.44, ICD10: Z12.5 - PSA/PROSTSPECAG DIAG 7. Mixed hyperlipidemia - ICD9: 272.2, ICD10: E78.2 - follow progress. - CBC + DIFF - COMP METABOLIC PANEL - LIPID PANEL BASIC 8. Primary hypertension - ICD9: 401.9, ICD10: I10 - good control - Continue current medication(s) - Goal of BP <130/80 9. Need for vaccination - ICD9: V05.9, ICD10: Z23 - TDAP VACCINE, AGE 7+ YR (ADACEL, BOOSTRIX) Alfonso Emerson MD documented in this encounter [facility] 10-13-2022 Miscellaneous Notes CHRISTINE 07/01/22 Patient has been identified by name and date of : Yes Last office visit in this department: 07/01/2022 RX INSTRUCTIONS: Patient aware RX escripted to mail away pharmacy. No need to notify patient. Patient phones requesting refills as follows: Requested Prescriptions Pending Prescriptions Disp Refills losartan-hydroCHLOROthiazide (HYZAAR) 50-12.5 mg per tablet Sig: Take by mouth. Please review and advise. Ingrid Savage Pss documented in this encounter [facility] 08-02-2022 Miscellaneous Notes Patient has been identified by name and date of : Yes Requested Prescriptions Pending Prescriptions Disp Refills fenofibrate nanocrystallized (TRICOR) 145 mg tablet 90 tablet 3 Sig: Take 1 tablet by mouth once daily. RX INSTRUCTIONS: Patient aware RX escripted to mail away pharmacy. No need to notify patient. Merlene Bermudez documented in this encounter [facility] 07-26-2022 Miscellaneous Notes Patient picked up CD and signed the release CD READY FOR [facility] Pt calling in wanting to steel pickler copies of X-Rays from 07/[address] scan on 01/26 PT is hoping to steel pickler scans before his appt on Monday this week. Please contact patient and advise. Thank you! Hanna Aguilar documented in this encounter [facility] 07-06-2022 Miscellaneous Notes Patient calling and requesting PT referral be faxed to [facility]. Faxed as requested. Lani Galeana RN documented in this encounter [facility] 07-01-2022 Note HNO ID: [id number] Author: RT Shazia(Renetta) Service: Nuclear Medicine Author Type: Technologist Type: Progress Notes Filed: 07/01/2022 2:56 PM Note Text: Radiology Service Progress Note PATIENT NAME: Danilo Stock DATE OF SERVICE: July 01, 2022 TIME: 2:43 PM PATIENT IDENTITY VERIFICATION COMPLETED USING TWO (2) IDENTIFIERS: Name and Date of confirmed by patient verbally. FALL SCREENING: Has the patient had 2 falls in the last year or 1 fall with injury or currently using an Ambulatory Assistive Device (Walker, Cane, Wheelchair, Crutches, etc.)? No PATIENT GENDER DATA: Male PATIENT RELEVANT IMPLANT DATA REVIEWED: Not Applicable RADIOLOGY DEPARTMENT: General X-ray: Exam(s) Completed: Spine X-Ray(s): Thoracic and Lumbar AP / LAT / L5-S1 PERIPHERAL IV DATA: Not applicable SIGNED BY: RT Shazia(R) July 01, 2022 2:43 PM [facility] 07-01-2022 Miscellaneous Notes TC to pt, left detailed message on secure identified voicemail. Pt to return call to office to schedule PT appt. Zenon Aponte LPN Xray shows degenerative changes. Recommend physical therapy documented in this encounter [facility] 07-01-2022 Note HNO ID: [id number] Author: Alfonso Emerson MD Service: ? Author Type: Physician Type: Progress Notes Filed: 07/01/2022 3:44 PM Note Text: Patient presents with: Follow Up HPI: Patient presents today for office visit for multiple concerns. Follow up from urgent care a week ago. Lower abdominal pain, funny feeling like possible UTI. Given abx Keflex. Called with [facility]. Told to stop abx. Culture negative as well. Does follow with urology. Has not seen urology since February. No blood in the urine. No changes in his urine. Right now he feels well. No abd pain No bowel issues. CT done awhile ago. Back and neck pain. Has thoracic back pain as well. Requesting referral to spine medicine. Previous back xrays show degenerative changes. In 2018. Last MRI of his back was 2012 Periodically has pain in his back and sometimes legs feel week. No significant radicular pain Stiffness when he gets up or have been bending over. He does not want injections etc. See ov from 01/16: Has been there on and off for a while. Get discomfort often in the left lower quadrant pain. Comes and goes. Can radiate to the mid lower abdomen. Feels like sometimes he needs to move his bowels. Moving he bowels however makes no differences. No changes with urine or bowels. May be worse with movement. 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 No nausea or vomiting. He does get occasionally some globus sensation and takes pepcid ac. No black or bloody stools. No diarrhea or constipation. No fever or chills. Had colonoscopy done in 2018. Had polypectomy done. Sees urology for his psa and bph. CT from January 2022: IMPRESSION: Punctate 1 to 2 mm nonobstructing calculus at the right ureterovesical junction. Bilateral fat-containing inguinal hernias Fatty infiltration of the liver Enlarged prostate No additional acute process in the abdomen or pelvis MEDICATIONS: Current Outpatient Medications Medication Sig cephALEXin (KEFLEX) 500 mg capsule Take 1 capsule by mouth twice daily for 7 days. losartan-hydroCHLOROthiazide (HYZAAR) 50-12.5 mg per tablet Take 1 tablet by mouth once daily. OTC NUTRITIONAL SUPPLEMENT CBD OIL fenofibrate nanocrystallized (TRICOR) 145 mg tablet Take 1 tablet by mouth once daily. fenofibrate nanocrystallized (TRICOR) 145 mg tablet Take 1 tablet by mouth once daily. No current facility-administered medications for this visit. ALLERGIES: ALLERGIES Allergen Reactions Meloxicam GI Upset PAST MEDICAL HISTORY Diagnosis Date Acute gastritis without mention of hemorrhage Ankle pain, right crush injury right ankle with complex tib-fib fracture: chronic pain Back pain intermittent low back pain Benign neoplasm of colon Esophagitis no symptoms s/p dilitation History of esophageal stricture 11/24/2008 Hyperlipidemia Hypertension with white coat effect Panic attack heart racing, negative stress test 08/04 PAST SURGICAL HISTORY Procedure Laterality Date ANKLE SURGERY HX 10/12/2017 COLONOSCOPY FLX DX W/COLLJ SPEC WHEN PFRMD 11/24/08 hyperplastic polyp, repeat due 2019 COLONOSCOPY FLX DX W/COLLJ SPEC WHEN PFRMD 03/13/2018 two small adenomatous polyps, repeat in 5 years ESOPHAGOGASTRODUODENOSCOPY TRANSORAL DIAGNOSTIC 10/29/01 EGD ESOPHAGOSCOPY FLEX BALLOON DILAT <30 MM DIAM 11/24/08 EGD stricture dilated OPTX ANKLE DISLOCATION W/REPAIR/INT/XTRNL FIXJ 1987 ORIF Ankle right PAST SURGICAL HISTORY OF 11/26 excision = pyogenic granuloma PAST SURGICAL 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 REVIEW OF SYSTEMS No chest pain or shorness of breath. All other reviewed and negative other than HPI. HEALTH MAINTENANCE: Reviewed health maintenance issues today and recommended the following in detail. DEPRESSION ASSESSMENT Never done COVID-19 VACCINE(4 - Booster for Pfizer series) due on 09/20/2021 INFLUENZA(1) due on 04/28/2022 VITALS: BP 138/88 Pulse 96 Ht 172.7 cm (5' 8 ) Wt 90.7 kg (200 lb) SpO2 97% BMI 30.41 kg/m? Last 4 Encounter Wt Readings: Date: Wt: 2022 91 kg (200 lb 9.6 oz) 03/16/2022 90.8 kg (200 lb 3.2 oz) 01/08/2022 87.5 kg (193 lb) 05/11/2021 84.8 kg (187 lb) PHYSICAL EXAMINATION: General appearance: Well appearing, alert, in no acute distress, well-hydrated, well nourished. Skin: Skin color, texture, turgor normal, no suspicious rashes or lesions Back: Normal exam Lungs: Lungs clear t (more content not included)... [facility] 07-01-2022 History of Presen t illness Narrative Patient presents with: Follow Up HPI: Patient presents today for office visit for multiple concerns. Follow up from urgent care a week ago. Lower abdominal pain, funny feeling like possible UTI. Given abx Keflex. Called with [facility]. Told to stop abx. Culture negative as well. Does follow with urology. Has not seen urology since February. No blood in the urine. No changes in his urine. Right now he feels well. No abd pain No bowel issues. CT done awhile ago. Back and neck pain. Has thoracic back pain as well. Requesting referral to spine medicine. Previous back xrays show degenerative changes. In 2018. Last MRI of his back was 2012 Periodically has pain in his back and sometimes legs feel week. No significant radicular pain Stiffness when he gets up or have been bending over. He does not want injections etc. See ov from 01/16: Has been there on and off for a while. Get discomfort often in the left lower quadrant pain. Comes and goes. Can radiate to the mid lower abdomen. Feels like sometimes he needs to move his bowels. Moving he bowels however makes no differences. No changes with urine or bowels. May be worse with movement. 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 No nausea or vomiting. He does get occasionally some globus sensation and takes pepcid ac. No black or bloody stools. No diarrhea or constipation. No fever or chills. Had colonoscopy done in 2018. Had polypectomy done. Sees urology for his psa and bph. CT from January 2022: IMPRESSION: Punctate 1 to 2 mm nonobstructing calculus at the right ureterovesical junction. Bilateral fat-containing inguinal hernias Fatty infiltration of the liver Enlarged prostate No additional acute process in the abdomen or pelvis MEDICATIONS: Current Outpatient Medications Medication Sig cephALEXin (KEFLEX) 500 mg capsule Take 1 capsule by mouth twice daily for 7 days. losartan-hydroCHLOROthiazide (HYZAAR) 50-12.5 mg per tablet Take 1 tablet by mouth once daily. OTC NUTRITIONAL SUPPLEMENT CBD OIL fenofibrate nanocrystallized (TRICOR) 145 mg tablet Take 1 tablet by mouth once daily. fenofibrate nanocrystallized (TRICOR) 145 mg tablet Take 1 tablet by mouth once daily. No current facility-administered medications for this visit. ALLERGIES: ALLERGIES Allergen Reactions Meloxicam GI Upset PAST MEDICAL HISTORY Diagnosis Date Acute gastritis without mention of hemorrhage Ankle pain, right crush injury right ankle with complex tib-fib fracture: chronic pain Back pain intermittent low back pain Benign neoplasm of colon Esophagitis no symptoms s/p dilitation History of esophageal stricture 11/24/2008 Hyperlipidemia Hypertension with white coat effect Panic attack heart racing, negative stress test 08/04 PAST SURGICAL HISTORY Procedure Laterality Date ANKLE SURGERY HX 10/12/2017 COLONOSCOPY FLX DX W/COLLJ SPEC WHEN PFRMD 11/24/08 hyperplastic polyp, repeat due 2018 COLONOSCOPY FLX DX W/COLLJ SPEC WHEN PFRMD 03/13/2018 two small adenomatous polyps, repeat in 5 years ESOPHAGOGASTRODUODENOSCOPY TRANSORAL DIAGNOSTIC 10/29/01 EGD ESOPHAGOSCOPY FLEX BALLOON DILAT <30 MM DIAM 11/24/08 EGD stricture dilated OPTX ANKLE DISLOCATION W/REPAIR/INT/XTRNL FIXJ 1987 ORIF Ankle right PAST SURGICAL HISTORY OF 11/26 excision = pyogenic granuloma PAST SURGICAL 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 REVIEW OF SYSTEMS No chest pain or shorness of breath. All other reviewed and negative other than HPI. HEALTH MAINTENANCE: Reviewed health maintenance issues today and recommended the following in detail. DEPRESSION ASSESSMENT Never done COVID-19 VACCINE(4 - Booster for Pfizer series) due on 09/20/2021 INFLUENZA(1) due on 04/28/2022 VITALS: BP 138/88 Pulse 96 Ht 172.7 cm (5' 8 ) Wt 90.7 kg (200 lb) SpO2 97% BMI 30.41 kg/m Last 4 Encounter Wt Readings: Date: Wt: 2022 91 kg (200 lb 9.6 oz) 03/16/2022 90.8 kg (200 lb 3.2 oz) 01/08/2022 87.5 kg (193 lb) 05/11/2021 84.8 kg (187 lb) PHYSICAL EXAMINATION: General appearance: Well appearing, alert, in no acute distress, well-hydrated, well nourished. Skin: Skin color, texture, turgor normal, no suspicious rashes or lesions Back: Normal exam Lungs: Lungs clear to auscultation. No wheezing, rhonchi, rales Heart: RRR without murmur, gallop, or rubs. No ectopy Abdomen: Normal abdominal exam, Abdomen soft, non-tender. Bowel sounds normal. No masses, organomegaly Extremities: No deformities, edema, skin discoloration, clubbing or cyanosis. Good capillary refill. Musculoskeletal: No joint swelling, deformity, or tenderness Peripheral pulses: Normal Neuro: Negative. ASSESSMENT/PLAN: 1. Chronic midline low back pain without sciatica - ICD9: 724.2, 338.29, ICD10: M54.50, G89.29 (primary diagnosis) - consider physical therapy. - XR LUMBAR GENERAL 3V AP/LAT/L5-S1 2. Encounter for immunization - ICD9: V03.89, ICD10: Z23 - INFLUENZA VACCINE QUADRIVALENT 6 MO - 64 YRS IM 3. Upper back pain - ICD9: 724.5, ICD10: M54.9 - as above. Red flags for re-assessment reviewed with patient in detail. - XR THORACIC GENERAL 3V AP/LAT/SWIMMERS Alfonso Emerson MD documented in this encounter [facility] 06-25-2022 Miscellaneous Notes Patient given results and verbalized understanding of instructions given. Ingrid Medina Let patient know his urine culture was negative. He can d/c antibiotics recommend urology follow up if symptoms persist. documented in this encounter [facility] 2022 Note HNO ID: [id number] Author: Twna Gusman APRN.P[employer] Service: ? Author Type: Nurse Practitioner Type: Progress Notes Filed: 2022 12:00 PM Note Text: Subjective HPI Nontoxic-appearing male presents urgent care chief plaint UTI-like symptoms. Duration of symptoms 3 days. Associated symptoms dysuria frequency. States has had a UTI in the past this feels similar. Has had prostatitis in the past this feels similar as well. Has not used any OTC medications today. Did take Aleve yesterday this did help. Denies any inability to pass urine. Denies any fever body aches or chills. Denies any nausea vomiting or abdominal pain. Does have pressure over his bladder that has since subsided. Past medical history prescription medication use allergies reviewed. Risk factor history of prostatitis enlarged prostate. .Patient presents with: possible prostatitis: Feels like his prostate is enlarged-has had before and same feeling x 3 days PAST MEDICAL HISTORY Diagnosis Date Acute gastritis without mention of hemorrhage Ankle pain, right crush injury right ankle with complex tib-fib fracture: chronic pain Back pain intermittent low back pain Benign neoplasm of colon Esophagitis no symptoms s/p dilitation History of esophageal stricture 11/24/2008 Hyperlipidemia Hypertension with white coat effect Panic attack heart racing, negative stress test 08/04 PAST SURGICAL HISTORY Procedure Laterality Date ANKLE SURGERY HX 10/12/2017 COLONOSCOPY FLX DX W/COLLJ SPEC WHEN PFRMD 3/30/09 hyperplastic polyp, repeat due 2019 COLONOSCOPY FLX DX W/COLLJ SPEC WHEN PFRMD 03/13/2018 two small adenomatous polyps, repeat in 5 years ESOPHAGOGASTRODUODENOSCOPY TRANSORAL DIAGNOSTIC 10/29/01 EGD ESOPHAGOSCOPY FLEX BALLOON DILAT <30 MM DIAM 11/24/08 EGD stricture dilated OPTX ANKLE DISLOCATION W/REPAIR/INT/XTRNL FIXJ 1988 ORIF Ankle right PAST SURGICAL HISTORY OF 11/26 excision = pyogenic granuloma PAST SURGICAL 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 OTC NUTRITIONAL SUPPLEMENT CBD OIL fenofibrate nanocrystallized (TRICOR) 145 mg tablet Take 1 tablet by mouth once daily. fenofibrate nanocrystallized (TRICOR) 145 mg tablet Take 1 tablet by mouth once daily. FAMILY HISTORY Problem Relation Age of Onset Heart Paternal Uncle Diabetes Paternal Grandmother Emphysema Father age 69 Thyroid Sister Thyroid Sister Social History Tobacco Use Smoking status: Never Smokeless tobacco: Never Substance Use Topics Alcohol use: No Comment: rare Drug use: No BP 144/84 Pulse 70 Temp 36.6 ?C (97.9 ?F) (Tympanic) Resp 16 Wt 91 kg (200 lb 9.6 oz) SpO2 98% BMI 30.50 kg/m? Review of Systems Constitutional: Negative for chills, fever and malaise/fatigue. HENT: Negative for congestion, ear discharge, ear pain, sinus pain and sore throat. Eyes: Negative for blurred vision, pain, discharge and redness. Respiratory: Negative for cough, hemoptysis, sputum production, shortness of breath, wheezing and stridor. Cardiovascular: Negative for chest pain. Gastrointestinal: Negative for abdominal pain, diarrhea, nausea and vomiting. Genitourinary: Positive for dysuria and frequency. Negative for flank pain, hematuria and urgency. Musculoskeletal: Negative for myalgias. Skin: Negative for itching and rash. Neurological: Negative for dizziness and headaches. Objective Physical Exam Constitutional: General: He is not in acute distress. Appearance: He is not diaphoretic. HENT: Head: Normocephalic. Mouth/Throat: Mouth: Mucous membranes are moist. Pharynx: Oropharynx is clear. No oropharyngeal exudate or posterior oropharyngeal erythema. Eyes: Conjunctiva/sclera: Conjunctivae normal. Pupils: Pupils are equal, round, and reactive to light. Cardiovascular: Rate and Rhythm: Normal rate and regular rhythm. Heart sounds: Normal heart sounds. Pulmonary: Effort: Pulmonary effort is normal. No tachypnea, accessory muscle usage or respiratory distress. Breath sounds: Normal breath sounds. No stridor. No wheezing, rhonchi or rales. Abdominal: Palpations: Abdomen is soft. Tenderness: There is no abdominal tenderness. There is no right CVA tenderness, left CVA tenderness, guarding or rebound. Musculoskeletal: Cervical back: Normal range of motion and neck supple. No rigidity or tenderness. Lymphadenopathy: Cervical: No cervical adenopathy. Skin: General: Skin is warm and dry. Neurological: Mental Status: He is alert and oriented to person, place, and time. ASSESSMENT/PLAN: 1. Dysuria - ICD9: 788.1, ICD10: R30.0 - UA DIP, URINE (POC) - URINE CULTURE Patient diagnosed with dysuria. History of UTIs in the past thi (more content not included)... [facility] 2022 History of Presen t illness Narrative Subjective HPI Nontoxic-appearing male presents urgent care chief plaint UTI-like symptoms. Duration of symptoms 3 days. Associated symptoms dysuria frequency. States has had a UTI in the past this feels similar. Has had prostatitis in the past this feels similar as well. Has not used any OTC medications today. Did take Aleve yesterday this did help. Denies any inability to pass urine. Denies any fever body aches or chills. Denies any nausea vomiting or abdominal pain. Does have pressure over his bladder that has since subsided. Past medical history prescription medication use allergies reviewed. Risk factor history of prostatitis enlarged prostate. .Patient presents with: possible prostatitis: Feels like his prostate is enlarged-has had before and same feeling x 3 days PAST MEDICAL HISTORY Diagnosis Date Acute gastritis without mention of hemorrhage Ankle pain, right crush injury right ankle with complex tib-fib fracture: chronic pain Back pain intermittent low back pain Benign neoplasm of colon Esophagitis no symptoms s/p dilitation History of esophageal stricture 11/24/2008 Hyperlipidemia Hypertension with white coat effect Panic attack heart racing, negative stress test 08/04 PAST SURGICAL HISTORY Procedure Laterality Date ANKLE SURGERY HX 10/12/2017 COLONOSCOPY FLX DX W/COLLJ SPEC WHEN PFRMD 11/24/08 hyperplastic polyp, repeat due 2019 COLONOSCOPY FLX DX W/COLLJ SPEC WHEN PFRMD 03/13/2018 two small adenomatous polyps, repeat in 5 years ESOPHAGOGASTRODUODENOSCOPY TRANSORAL DIAGNOSTIC 10/29/01 EGD ESOPHAGOSCOPY FLEX BALLOON DILAT <30 MM DIAM 11/24/08 EGD stricture dilated OPTX ANKLE DISLOCATION W/REPAIR/INT/XTRNL FIXJ 1987 ORIF Ankle right PAST SURGICAL HISTORY OF 11/26 excision = pyogenic granuloma PAST SURGICAL 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 OTC NUTRITIONAL SUPPLEMENT CBD OIL fenofibrate nanocrystallized (TRICOR) 145 mg tablet Take 1 tablet by mouth once daily. fenofibrate nanocrystallized (TRICOR) 145 mg tablet Take 1 tablet by mouth once daily. FAMILY HISTORY Problem Relation Age of Onset Heart Paternal Uncle Diabetes Paternal Grandmother Emphysema Father age 69 Thyroid Sister Thyroid Sister Social History Tobacco Use Smoking status: Never Smokeless tobacco: Never Substance Use Topics Alcohol use: No Comment: rare Drug use: No BP 144/84 Pulse 70 Temp 36.6 C (97.9 F) (Tympanic) Resp 16 Wt 91 kg (200 lb 9.6 oz) SpO2 98% BMI 30.50 kg/m Review of Systems Constitutional: Negative for chills, fever and malaise/fatigue. HENT: Negative for congestion, ear discharge, ear pain, sinus pain and sore throat. Eyes: Negative for blurred vision, pain, discharge and redness. Respiratory: Negative for cough, hemoptysis, sputum production, shortness of breath, wheezing and stridor. Cardiovascular: Negative for chest pain. Gastrointestinal: Negative for abdominal pain, diarrhea, nausea and vomiting. Genitourinary: Positive for dysuria and frequency. Negative for flank pain, hematuria and urgency. Musculoskeletal: Negative for myalgias. Skin: Negative for itching and rash. Neurological: Negative for dizziness and headaches. Objective Physical Exam Constitutional: General: He is not in acute distress. Appearance: He is not diaphoretic. HENT: Head: Normocephalic. Mouth/Throat: Mouth: Mucous membranes are moist. Pharynx: Oropharynx is clear. No oropharyngeal exudate or posterior oropharyngeal erythema. Eyes: Conjunctiva/sclera: Conjunctivae normal. Pupils: Pupils are equal, round, and reactive to light. Cardiovascular: Rate and Rhythm: Normal rate and regular rhythm. Heart sounds: Normal heart sounds. Pulmonary: Effort: Pulmonary effort is normal. No tachypnea, accessory muscle usage or respiratory distress. Breath sounds: Normal breath sounds. No stridor. No wheezing, rhonchi or rales. Abdominal: Palpations: Abdomen is soft. Tenderness: There is no abdominal tenderness. There is no right CVA tenderness, left CVA tenderness, guarding or rebound. Musculoskeletal: Cervical back: Normal range of motion and neck supple. No rigidity or tenderness. Lymphadenopathy: Cervical: No cervical adenopathy. Skin: General: Skin is warm and dry. Neurological: Mental Status: He is alert and oriented to person, place, and time. ASSESSMENT/PLAN: 1. Dysuria - ICD9: 788.1, ICD10: R30.0 - UA DIP, URINE (POC) - URINE CULTURE Patient diagnosed with dysuria. History of UTIs in the past this is similar. Urine dip was negative. Will be placed on Keflex. If culture is negative will discontinue antibiotics. Follow-up with urology in 3 to 5 days. Flexor prompt reevaluation discussed. Patient was educated on supportive therapies. Patient will follow up with primary care provider as needed. Patient was instructed to immediately proceed to emergency room for any new, worsening, or symptoms lasting longer than anticipated. The patient's clinical presentation is otherwise unremarkable at this time. Based on exam and clinical finding, the patient is stable for discharge. Plan of care was discussed with patient. Patient verbalizes understanding and agrees to plan of care. This note was generated using [employer] software. It may contain errors in wording, punctuation, or spelling. Twan Gusman APRN.JACQUI documented in this encounter [facility] 03-16-2022 Nurse Note Pt brought home BP cuff with reading in the office 136/83. documented in this encounter [facility] 03-16-2022 History of Presen t illness Narrative Patient presents with: Recheck HPI: Patient presents today for office visit for follow up. Uro: Just Saw Dr. Stoddard. PSA trending down. Next visit annually. Nocturia improving. Hx of enlargement of prostate. Still having intermittent difficulty straining. No hematuria. HTN: Patient is compliant with meds Yes Monitors bp at home: Yes. Avg 130s/80. High in am (140s) and low in pm (110). Denies side effects: Yes. Chest pain: Intermittent chest pain - chronic. Patient mentions more muscle related. Dyspnea: No. Edema: No. Palpitations: No. Syncope: No. Headache: No. Dizziness: No. Patient restarted losartan in the spring after not taking it for awhile. HYPERLIPIDEMIA: Patient is taking medications: Yes. Patient is watching diet: Yes. Diet reviewed. Patient denies myalgias: Yes. Patient denies gi upset: No Lipids trending down. GASTROENTEROLOGY: Fatty liver noted on CT. Labs have been good. Intermittent abdo discomfort. Patient mentions improvement. No nausea. No vomiting. No diarrhea. No constipation. Regular BMs. Abdo non tender to touch. See previous ov: Has been there on and off for a while. Get discomfort often in the left lower quadrant pain. Comes and goes. Can radiate to the mid lower abdomen. Feels like sometimes he needs to move his bowels. Moving he bowels however makes no differences. No changes with urine or bowels. May be worse with movement. 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 No nausea or vomiting. He does get occasionally some globus sensation and takes pepcid ac. No black or bloody stools. No diarrhea or constipation. No fever or chills. Had colonoscopy done in 2018. Had polypectomy done. Sees urology for his psa and bph. CT: IMPRESSION: Punctate 1 to 2 mm nonobstructing calculus at the right ureterovesical junction. Bilateral fat-containing inguinal hernias Fatty infiltration of the liver Enlarged prostate No additional acute process in the abdomen or pelvis Component Latest Ref Rng & Units 11/02/2021 01/15/2022 WBC 3.70 - 11.00 k/uL 7.04 RBC 4.20 - 6.00 m/uL 4.89 Hemoglobin 13.0 - 17.0 g/dL 15.3 Hematocrit 39.0 - 51.0 % 45.2 MCV 80.0 - 100.0 fL 92.4 MCH 26.0 - 34.0 pg 31.3 MCHC 30.5 - 36.0 g/dL 33.8 RDW-CV 11.5 - 15.0 % 12.4 Platelet Count 150 - 400 k/uL 286 MPV 9.0 - 12.7 fL 10.2 Neut% % 65.9 Abs Neut (ANC) 1.45 - 7.50 k/uL 4.64 Lymph% % 21.6 Abs Lymph 1.00 - 4.00 k/uL 1.52 [place]% % 10.4 Abs [place] <0.87 k/uL 0.73 Eosin% % 1.7 Abs Eosin <0.46 k/uL 0.12 Baso% % 0.3 Abs Baso <0.11 k/uL <0.03 Immature Gran % % 0.1 IMMATURE GRANS (ABS) <0.10 k/uL <0.03 NRBC /100 WBC 0.0 Absolute nRBC <0.01 k/uL <0.01 DTYPE Auto Protein, Total 6.3 - 8.0 g/dL 7.6 Albumin 3.9 - 4.9 g/dL 4.8 Calcium 8.5 - 10.2 mg/dL 9.6 Bilirubin, Total 0.2 - 1.3 mg/dL 1.0 Alkaline Phosphatase 38 - 113 U/L 47 AST 14 - 40 U/L 24 ALT 10 - 54 U/L 27 Glucose 74 - 99 mg/dL 86 BUN 9 - 24 mg/dL 17 Creatinine 0.73 - 1.22 mg/dL 1.10 1.18 Sodium 136 - 144 mmol/L 140 Potassium 3.7 - 5.1 mmol/L 4.4 Chloride 97 - 105 mmol/L 103 CO2 22 - 30 mmol/L 24 Anion Gap 9 - 18 mmol/L 13 eGFR >=60 mL/min/1.73m 76 70 Lipase 16 - 61 U/L 50 TSH 0.270 - 4.200 mIU/L 1.390 Component Latest Ref Rng & Units 03/15/2022 Cholesterol, Total <200 mg/dL 200 (H) Triglyceride <150 mg/dL 140 HDL Cholesterol >39 mg/dL 46 Non HDL Cholesterol <130 mg/dL 154 (H) Fasting Time hrs 11 VLDL Cholesterol <30 mg/dL 28 TC:HDL Ratio <5.10 4.35 LDL Cholesterol <100 mg/dL 126 (H) LDL:HDL Ratio <2.54 2.74 (H) PSA Screening <2.60 ng/mL 4.60 (H) MEDICATIONS: Current Outpatient Medications Medication Sig losartan-hydroCHLOROthiazide (HYZAAR) 50-12.5 mg per tablet Take 1 tablet by mouth once daily. OTC NUTRITIONAL SUPPLEMENT CBD OIL fenofibrate nanocrystallized (TRICOR) 145 mg tablet Take 1 tablet by mouth once daily. fenofibrate nanocrystallized (TRICOR) 145 mg tablet Take 1 tablet by mouth once daily. No current facility-administered medications for this visit. ALLERGIES: ALLERGIES Allergen Reactions Meloxicam GI Upset PAST MEDICAL HISTORY Diagnosis Date Acute gastritis without mention of hemorrhage Ankle pain, right crush injury right ankle with complex tib-fib fracture: chronic pain Back pain intermittent low back pain Benign neoplasm of colon Esophagitis no symptoms s/p dilitation History of esophageal stricture 11/24/2008 Hyperlipidemia Hypertension with white coat effect Panic attack heart racing, negative stress test 08/04 PAST SURGICAL HISTORY Procedure Laterality Date ANKLE SURGERY HX 10/12/2017 COLONOSCOPY FLX DX W/COLLJ SPEC WHEN PFRMD 11/24/08 hyperplastic polyp, repeat due 2019 COLONOSCOPY FLX DX W/COLLJ SPEC WHEN PFRMD 03/13/2018 two small adenomatous polyps, repeat in 5 years ESOPHAGOGASTRODUODENOSCOPY TRANSORAL DIAGNOSTIC 10/29/01 EGD ESOPHAGOSCOPY FLEX BALLOON DILAT <30 MM DIAM 11/24/08 EGD stricture dilated OPTX ANKLE DISLOCATION W/REPAIR/INT/XTRNL FIXJ 1987 ORIF Ankle right PAST SURGICAL HISTORY OF 11/26 excision = pyogenic granuloma PAST SURGICAL 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 REVIEW OF SYSTEMS All other reviewed and negative other than HPI. HEALTH MAINTENANCE: Reviewed health maintenance issues today and recommended the following in detail. HIV SCREENING Never done BP CONTROLLED (<130/80) Never done SHINGRIX VACCINE(1 of 2) Discussed with patient. COVID-19 VACCINE(4 - Booster for Pfizer series) due on 11/23/2021. Discussed with patient. VITALS: BP 126/80 Pulse 64 Resp 16 Wt 90.8 kg (200 lb 3.2 oz) BMI 30.44 kg/m Last 4 Encounter Wt Readings: Date: Wt: 01/08/2022 87.5 kg (193 lb) 05/11/2021 84.8 kg (187 lb) 05/31/2019 93 kg (205 lb) 04/11/2019 91.6 kg (202 lb) PHYSICAL EXAMINATION: General appearance: Well appearing, alert, in no acute distress, well-hydrated, well nourished. Skin: Skin color, texture, turgor normal, no suspicious rashes or lesions Head: Normocephalic, no masses, lesions, tenderness or abnormalities Back: Chronic back pain - Hx of spinal stenosis. Stable. Lungs: Lungs clear to auscultation. No wheezing, rhonchi, rales Heart: RRR without murmur, gallop, or rubs. No ectopy Abdomen: Hx of fatty liver. Non tender. Abdo upset improving. Extremities: No deformities, edema, skin discoloration, clubbing or cyanosis. Good capillary refill. Musculoskeletal: No joint swelling, deformity, or tenderness Peripheral pulses: Normal Neuro: Negative. ASSESSMENT/PLAN: 1. Primary hypertension - ICD9: 401.9, ICD10: I10 (primary diagnosis) - good control - Continue current medication(s) - Recommended regular aerobic exercise. - Recommend home blood pressure monitoring, to bring results in on next visit - Goal of BP <130/80 - COMP METABOLIC PANEL 2. Mixed hyperlipidemia - ICD9: 272.2, ICD10: E78.2 - good control - Continue current medication. 3. Benign prostatic hyperplasia with lower urinary tract symptoms, symptom details unspecified - ICD9: 600.01, ICD10: N40.1 - per Dr. Stoddard. 4. Fatty liver - ICD9: 571.8, ICD10: K76.0 - work on weight loss. - COMP METABOLIC PANEL Alfonso Emerson RTO in six months and prn. documented in this encounter [facility] 02-22-[address] CT results to Dr. Stoddard/[facility], per Hedy request. documented in this encounter [facility] 01-26-2022 Miscellaneous Notes Patient notified. Verbalized understanding. Is going to keep appointment if he has another flare up. If feeling better he will cancel. States due to cost does not see a reason for follow up. States he will see urology the same week. If feeling better, we can watch. Can send copy of ct to his urologist at . Call if pain recurs. Hold on labs and urine until he sees them. Patient notified. FYI: Dr. Emerson: Patient has an appointment scheduled the last week of January to follow up with Urologist at [facility]. Patient also states he's lost 20 lb. Over the last year & not sure what to do about the fatty liver. Advised patient to avoid sugars & fatty foods/fried foods, etc. Patient states his abdominal pain has subsided at this time. Patient questions if the appointment is necessary since he's no longer in pain. Advised patient to complete pending labs & keep follow up appointment scheduled. Dr. Emerson please advise if appointment is still necessary at this time. Maggie Mitchell MA Ct shows several things. Fatty liver-weight loss helps. Shows small hernias in groin. Not sure that those are significant. Shows what may be two tiny kidney stones. If they are stones, are small enough that they should pass on their own. Prostate appears slightly big. Come in for repeat fasting lab drawn and urine. Call if pain worsens. Keep follow up. documented in this encounter [facility] 01-26-2022 History of Presen t illness Narrative Radiology Service Progress Note DATE OF SERVICE: January 26, 2022 TIME: 1:26 PM PATIENT IDENTITY VERIFICATION COMPLETED USING TWO (2) STANDARD IDENTIFIERS: Name and Date of confirmed by patient verbally. FALL SCREENING: Has the patient had 2 falls in the last year or 1 fall with injury or currently using an Ambulatory Assistive Device (Walker, Cane, Wheelchair, Crutches, etc.)? No PATIENT GENDER DATA: Male PATIENT RELEVANT IMPLANT DATA REVIEWED: Yes ALLERGIES: Reviewed and unchanged CONTRAST ALLERGY: NO. EXAM: CT -CONTRAST INDUCED NEPHROPATHY RISK FACTORS: Patient age > 60 years CREATININE: Creatinine Date Value Ref Range Status 01/15/2022 1.18 0.73 - 1.22 mg/dL Final 11/02/2021 1.10 0.73 - 1.22 mg/dL Final 11/02/2020 1.13 0.73 - 1.22 mg/dL Final Estimated Glomerular Filtration Rate Date Value Ref Range Status 01/15/2022 70 >=60 mL/min/1.73m Final Comment: Estimated Glomerular Filtration Rate (eGFR) is calculated using the 2020 CKD-EPI creatinine equation. This equation utilizes serum creatinine, sex, and age as parameters. The creatinine assay has traceable calibration to isotope dilution-mass spectrometry. Refer to KDIGO guidelines for clinical interpretation. In patients with unstable renal function, e.g. those with acute kidney injury, the eGFR may not accurately reflect actual GFR. eGFR- Date Value Ref Range Status 11/02/2020 >60 Final P.O.C.T. RESULTS: POC done: Yes, See Lab Tab January 26, 2022 TREATMENT: N/A PERIPHERAL IV DATA: Ambulatory: A peripheral IV was started in the Left antecubital site with a Angio cath: 22 gauge. RADIOLOGY DEPARTMENT: CT; Exam(s) Completed: Abdomen/Pelvis SIGNATURE: RT Nicholas(R) PATIENT NAME: Danilo Stock DATE: January 26, 2022 TIME: 1:26 PM documented in this encounter [facility] 01-08-2022 History of Presen t illness Narrative Patient presents with: Abdominal Pain: 2 years having more often now has been for it before wondering if related to back or even prostate HPI: Patient presents today for office visit for follow up. See below: I have not seen him in office since 2019 and did a virtual visit. Has been there on and off for a while. Get discomfort often in the left lower quadrant pain. Comes and goes. Can radiate to the mid lower abdomen. Feels like sometimes he needs to move his bowels. Moving he bowels however makes no differences. No changes with urine or bowels. May be worse with movement. 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 No nausea or vomiting. He does get occasionally some globus sensation and takes pepcid ac. No black or bloody stools. No diarrhea or constipation. No fever or chills. Had colonoscopy done in 2018. Had polypectomy done. Sees urology for his psa and bph. Component Latest Ref Rng & Units 11/02/2021 WBC 3.70 - 11.00 k/uL 7.04 RBC 4.20 - 6.00 m/uL 4.89 Hemoglobin 13.0 - 17.0 g/dL 15.3 Hematocrit 39.0 - 51.0 % 45.2 MCV 80.0 - 100.0 fL 92.4 MCH 26.0 - 34.0 pg 31.3 MCHC 30.5 - 36.0 g/dL 33.8 RDW-CV 11.5 - 15.0 % 12.4 Platelet Count 150 - 400 k/uL 286 MPV 9.0 - 12.7 fL 10.2 Neut% % 65.9 Abs Neut (ANC) 1.45 - 7.50 k/uL 4.64 Lymph% % 21.6 Abs Lymph 1.00 - 4.00 k/uL 1.52 [place]% % 10.4 Abs [place] <0.87 k/uL 0.73 Eosin% % 1.7 Abs Eosin <0.46 k/uL 0.12 Baso% % 0.3 Abs Baso <0.11 k/uL <0.03 Immature Gran % % 0.1 IMMATURE GRANS (ABS) <0.10 k/uL <0.03 NRBC /100 WBC 0.0 Absolute nRBC <0.01 k/uL <0.01 DTYPE Auto Protein, Total 6.3 - 8.0 g/dL 7.6 Albumin 3.9 - 4.9 g/dL 4.8 Calcium 8.5 - 10.2 mg/dL 9.6 Bilirubin, Total 0.2 - 1.3 mg/dL 1.0 Alkaline Phosphatase 38 - 113 U/L 47 AST 14 - 40 U/L 24 ALT 10 - 54 U/L 27 Glucose 74 - 99 mg/dL 86 BUN 9 - 24 mg/dL 17 Creatinine 0.73 - 1.22 mg/dL 1.10 Sodium 136 - 144 mmol/L 140 Potassium 3.7 - 5.1 mmol/L 4.4 Chloride 97 - 105 mmol/L 103 CO2 22 - 30 mmol/L 24 Anion Gap 9 - 18 mmol/L 13 eGFR >=60 mL/min/1.73m 76 Lipase 16 - 61 U/L 50 TSH 0.270 - 4.200 mIU/L 1.390 See urgent care visit in October: Acute onset 5 days ago. Left mid region, but states at other times it can be other parts of his abdomen. Denies N/V/D Denies fever or chills. Denies sx. Denies testicular pain or swelling. Had oatmeal and coffee this morning, seemed to exacerbate it. But then states at times he feels eating helps to alleviate. Endorses that he has used Pepcid in past, citing a doctor in [place] Endorses that stomach pain has been coming and going for past several years. States he believes it may be diverticulitis versus pulled muscle. Endorses his last colonoscopy was 3 years ago, and with polyps. looking for an antibiotic The history is provided by the patient. No varnish cooker was used. Abdominal Pain This is a recurrent problem. The current episode started more than 2 days ago. The problem occurs every several days. The problem has been gradually improving. The pain is associated with an unknown factor. The pain is located in the LUQ and LLQ. The pain is at a severity of 4/10. The pain is mild. Pertinent negatives include anorexia, fever, belching, diarrhea, flatus, hematochezia, melena, nausea, vomiting, constipation, dysuria, frequency, hematuria, headaches, arthralgias and myalgias. Nothing aggravates the symptoms. Relieved by: pepcid. Past workup includes GI consult. Past workup does not include CT scan, ultrasound, surgery or barium enema. Past workup comments: colonoscopy. His past medical history does not include PUD, gallstones, GERD, ulcerative colitis, Crohn's disease or irritable bowel syndrome. MEDICATIONS: Current Outpatient Medications Medication Sig losartan-hydroCHLOROthiazide (HYZAAR) 50-12.5 mg per tablet Take 1 tablet by mouth once daily. OTC NUTRITIONAL SUPPLEMENT CBD OIL fenofibrate nanocrystallized (TRICOR) 145 mg tablet Take 1 tablet by mouth once daily. fenofibrate nanocrystallized (TRICOR) 145 mg tablet Take 1 tablet by mouth once daily. No current facility-administered medications for this visit. ALLERGIES: ALLERGIES Allergen Reactions Meloxicam GI Upset PAST MEDICAL HISTORY Diagnosis Date Acute gastritis without mention of hemorrhage Ankle pain, right crush injury right ankle with complex tib-fib fracture: chronic pain Back pain intermittent low back pain Benign neoplasm of colon Esophagitis no symptoms s/p dilitation History of esophageal stricture 11/24/2008 Hyperlipidemia Hypertension with white coat effect Panic attack heart racing, negative stress test 08/04 PAST SURGICAL HISTORY Procedure Laterality Date ANKLE SURGERY HX 10/12/2017 COLONOSCOPY FLX DX W/COLLJ SPEC WHEN PFRMD 11/24/08 hyperplastic polyp, repeat due 2019 COLONOSCOPY FLX DX W/COLLJ SPEC WHEN PFRMD 03/13/2018 two small adenomatous polyps, repeat in 5 years ESOPHAGOGASTRODUODENOSCOPY TRANSORAL DIAGNOSTIC 10/29/01 EGD ESOPHAGOSCOPY FLEX BALLOON DILAT <30 MM DIAM 11/24/08 EGD stricture dilated OPTX ANKLE DISLOCATION W/REPAIR/INT/XTRNL FIXJ 1987 ORIF Ankle right PAST SURGICAL HISTORY OF 11/26 excision = pyogenic granuloma PAST SURGICAL 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 REVIEW OF SYSTEMS All other reviewed and negative other than HPI. VITALS: BP 144/82 Pulse 80 Wt 87.5 kg (193 lb) BMI 29.35 kg/m Last 4 Encounter Wt Readings: Date: Wt: 01/08/2022 87.5 kg (193 lb) 05/11/2021 84.8 kg (187 lb) 05/31/2019 93 kg (205 lb) 04/11/2019 91.6 kg (202 lb) PHYSICAL EXAMINATION: General appearance: Well appearing, alert, in no acute distress, well-hydrated, well nourished. Skin: Skin color, texture, turgor normal, no suspicious rashes or lesions Head: Normocephalic, no masses, lesions, tenderness or abnormalities Lungs: Lungs clear to auscultation. No wheezing, rhonchi, rales Heart: RRR without murmur, gallop, or rubs. No ectopy Abdomen: Normal abdominal exam, Abdomen soft, non-tender. Bowel sounds normal. No masses, organomegaly Extremities: No deformities, edema, skin discoloration, clubbing or cyanosis. Good capillary refill. Musculoskeletal: No joint swelling, deformity, or tenderness Peripheral pulses: Normal Neuro: Negative. ASSESSMENT/PLAN: 1. Lower abdominal pain - ICD9: 789.09, ICD10: R10.30 (primary diagnosis) - Call if worsens. Light diet. Fluids and fiber. May need to consider colonoscopy sooner. Check ct to start. - CT ABD/PEL W IVCON - IV CONTRAST (RADIOLOGY PROCEDURE) - ENTERIC CONTRAST (RADIOLOGY PROCEDURE) 2. Mixed hyperlipidemia - ICD9: 272.2, ICD10: E78.2 - good control - Continue current medication. - LIPID PANEL BASIC 3. Primary hypertension - ICD9: 401.9, ICD10: I10 - good control - Continue current medication(s) - Goal of BP <130/80 4. Screening for nephropathy - ICD9: V81.5, ICD10: Z13.89 - CREATININE BLD Alfonso Emerson RTO in one month and prn. documented in this encounter [facility] documented as of this encounter (statuses as of 01/08/2022) [facility] History of Past illness Narrative* Problem Noted Date Resolved Date Narcotic addiction 01/14/2011 04/01/2011 Routine physical examination 07/10/2010 CRI (chronic renal insufficiency) 07/10/2010 01/14/2011 Prepatellar bursitis 05/10/2010 07/10/2010 Elevated blood pressure read ing without diagnosis of hypertension 01/17/2009 07/18/2009 Special screening for malignant neoplasms, colon 11/24/2008 09/28/2017 Unspecified essential hypertension 08/26/2008 01/17/2009 PAIN JOINT, ANKLE 01/22/2008 04/16/2015 Chest pain, unspecified 09/25/2007 09/28/19 18 Overview: Negative stress echo 10/2006, negative CT chest 07/04; ? Anxiety related Elevated blood pressure read ing without diagnosis of hypertension 06/27/2007 08/26/2008 documented as of this encounter (statuses as of 01/26/2022) [facility] History of Past illness Narrative* Problem Noted Date Resolved Date Narcotic addiction 01/14/2011 04/01/2011 Routine physical examination 07/10/2010 CRI (chronic renal insufficiency) 07/10/2010 01/14/2011 Prepatellar bursitis 05/10/2010 07/10/2010 Elevated blood pressure read ing without diagnosis of hypertension 01/17/2009 07/18/2009 Special screening for malignant neoplasms, colon 11/24/2008 09/28/2017 Unspecified essential hypertension 08/26/2008 01/17/2009 PAIN JOINT, ANKLE 01/22/2008 04/16/2015 Chest pain, unspecified 09/25/2007 09/28/19 18 Overview: Negative stress echo 10/2006, negative CT chest 07/04; ? Anxiety related Elevated blood pressure read ing without diagnosis of hypertension 06/27/2007 08/26/2008 documented as of this encounter (statuses as of 01/27/2022) [facility] History of Past illness Narrative* Problem Noted Date Resolved Date Narcotic addiction 01/14/2011 04/01/2011 Routine physical examination 07/10/2010 CRI (chronic renal insufficiency) 07/10/2010 01/14/2011 Prepatellar bursitis 05/10/2010 07/10/2010 Elevated blood pressure read ing without diagnosis of hypertension 01/17/2009 07/18/2009 Special screening for malignant neoplasms, colon 11/24/2008 09/28/2017 Unspecified essential hypertension 08/26/2008 01/17/2009 PAIN JOINT, ANKLE 01/22/2008 04/16/2015 Chest pain, unspecified 09/25/2007 09/28/19 18 Overview: Negative stress echo 10/2006, negative CT chest 07/04; ? Anxiety related Elevated blood pressure read ing without diagnosis of hypertension 06/27/2007 08/26/2008 documented as of this encounter (statuses as of 02/22/2022) [facility] History of Past illness Narrative* Problem Noted Date Resolved Date Narcotic addiction 01/14/2011 04/01/2011 Routine physical examination 07/10/2010 CRI (chronic renal insufficiency) 07/10/2010 01/14/2011 Prepatellar bursitis 05/10/2010 07/10/2010 Elevated blood pressure read ing without diagnosis of hypertension 01/17/2009 07/18/2009 Special screening for malignant neoplasms, colon 11/24/2008 09/28/2017 Unspecified essential hypertension 08/26/2008 01/17/2009 PAIN JOINT, ANKLE 01/22/2008 04/16/2015 Chest pain, unspecified 09/25/2007 09/28/19 18 Overview: Negative stress echo 10/2006, negative CT chest 07/04; ? Anxiety related Elevated blood pressure read ing without diagnosis of hypertension 06/27/2007 08/26/2008 documented as of this encounter (statuses as of 03/16/2022) [facility] History of Past illness Narrative* Problem Noted Date Resolved Date Narcotic addiction 01/14/2011 04/01/2011 Routine physical examination 07/10/2010 CRI (chronic renal insufficiency) 07/10/2010 01/14/2011 Prepatellar bursitis 05/10/2010 07/10/2010 Elevated blood pressure read ing without diagnosis of hypertension 01/17/2009 07/18/2009 Special screening for malignant neoplasms, colon 11/24/2008 09/28/2017 Unspecified essential hypertension 08/26/2008 01/17/2009 PAIN JOINT, ANKLE 01/22/2008 04/16/2015 Chest pain, unspecified 09/25/2007 09/28/19 18 Overview: Negative stress echo 10/2006, negative CT chest 07/04; ? Anxiety related Elevated blood pressure read ing without diagnosis of hypertension 06/27/2007 08/26/2008 documented as of this encounter (statuses as of 2022) [facility] History of Past illness Narrative* Problem Noted Date Resolved Date Narcotic addiction 01/14/2011 04/01/2011 Routine physical examination 07/10/2010 CRI (chronic renal insufficiency) 07/10/2010 01/14/2011 Prepatellar bursitis 05/10/2010 07/10/2010 Elevated blood pressure read ing without diagnosis of hypertension 01/17/2009 07/18/2009 Special screening for malignant neoplasms, colon 11/24/2008 09/28/2017 Unspecified essential hypertension 08/26/2008 01/17/2009 PAIN JOINT, ANKLE 01/22/2008 04/16/2015 Chest pain, unspecified 09/25/2007 09/28/19 18 Overview: Negative stress echo 10/2006, negative CT chest 07/04; ? Anxiety related Elevated blood pressure read ing without diagnosis of hypertension 06/27/2007 08/26/2008 documented as of this encounter (statuses as of 06/25/2022) [facility] History of Past illness Narrative* Problem Noted Date Resolved Date Narcotic addiction 01/14/2011 04/01/2011 Routine physical examination 07/10/2010 CRI (chronic renal insufficiency) 07/10/2010 01/14/2011 Prepatellar bursitis 05/10/2010 07/10/2010 Elevated blood pressure read ing without diagnosis of hypertension 01/17/2009 07/18/2009 Special screening for malignant neoplasms, colon 11/24/2008 09/28/2017 Unspecified essential hypertension 08/26/2008 01/17/2009 PAIN JOINT, ANKLE 01/22/2008 04/16/2015 Chest pain, unspecified 09/25/2007 09/28/19 18 Overview: Negative stress echo 10/2006, negative CT chest 07/04; ? Anxiety related Elevated blood pressure read ing without diagnosis of hypertension 06/27/2007 08/26/2008 documented as of this encounter (statuses as of 07/01/2022) [facility] History of Past illness Narrative* Problem Noted Date Resolved Date Narcotic addiction 01/14/2011 04/01/2011 Routine physical examination 07/10/2010 CRI (chronic renal insufficiency) 07/10/2010 01/14/2011 Prepatellar bursitis 05/10/2010 07/10/2010 Elevated blood pressure read ing without diagnosis of hypertension 01/17/2009 07/18/2009 Special screening for malignant neoplasms, colon 11/24/2008 09/28/2017 Unspecified essential hypertension 08/26/2008 01/17/2009 PAIN JOINT, ANKLE 01/22/2008 04/16/2015 Chest pain, unspecified 09/25/2007 09/28/19 18 Overview: Negative stress echo 10/2006, negative CT chest 07/04; ? Anxiety related Elevated blood pressure read ing without diagnosis of hypertension 06/27/2007 08/26/2008 documented as of this encounter (statuses as of 07/01/2022) [facility] History of Past illness Narrative* Problem Noted Date Resolved Date Narcotic addiction 01/14/2011 04/01/2011 Routine physical examination 07/10/2010 CRI (chronic renal insufficiency) 07/10/2010 01/14/2011 Prepatellar bursitis 05/10/2010 07/10/2010 Elevated blood pressure read ing without diagnosis of hypertension 01/17/2009 07/18/2009 Special screening for malignant neoplasms, colon 11/24/2008 09/28/2017 Unspecified essential hypertension 08/26/2008 01/17/2009 PAIN JOINT, ANKLE 01/22/2008 04/16/2015 Chest pain, unspecified 09/25/2007 09/28/19 18 Overview: Negative stress echo 10/2006, negative CT chest 07/04; ? Anxiety related Elevated blood pressure read ing without diagnosis of hypertension 06/27/2007 08/26/2008 documented as of this encounter (statuses as of 07/06/2022) [facility] History of Past illness Narrative* Problem Noted Date Resolved Date Narcotic addiction 01/14/2011 04/01/2011 Routine physical examination 07/10/2010 CRI (chronic renal insufficiency) 07/10/2010 01/14/2011 Prepatellar bursitis 05/10/2010 07/10/2010 Elevated blood pressure read ing without diagnosis of hypertension 01/17/2009 07/18/2009 Special screening for malignant neoplasms, colon 11/24/2008 09/28/2017 Unspecified essential hypertension 08/26/2008 01/17/2009 PAIN JOINT, ANKLE 01/22/2008 04/16/2015 Chest pain, unspecified 09/25/2007 09/28/19 18 Overview: Negative stress echo 10/2006, negative CT chest 07/04; ? Anxiety related Elevated blood pressure read ing without diagnosis of hypertension 06/27/2007 08/26/2008 documented as of this encounter (statuses as of 07/26/2022) [facility] History of Past illness Narrative* Problem Noted Date Resolved Date Narcotic addiction 01/14/2011 04/01/2011 Routine physical examination 07/10/2010 CRI (chronic renal insufficiency) 07/10/2010 01/14/2011 Prepatellar bursitis 05/10/2010 07/10/2010 Elevated blood pressure read ing without diagnosis of hypertension 01/17/2009 07/18/2009 Special screening for malignant neoplasms, colon 11/24/2008 09/28/2017 Unspecified essential hypertension 08/26/2008 01/17/2009 PAIN JOINT, ANKLE 01/22/2008 04/16/2015 Chest pain, unspecified 09/25/2007 09/28/19 18 Overview: Negative stress echo 10/2006, negative CT chest 07/04; ? Anxiety related Elevated blood pressure read ing without diagnosis of hypertension 06/27/2007 08/26/2008 documented as of this encounter (statuses as of 08/02/2022) [facility] History of Past illness Narrative* Problem Noted Date Resolved Date Narcotic addiction 01/14/2011 04/01/2011 Routine physical examination 07/10/2010 CRI (chronic renal insufficiency) 07/10/2010 01/14/2011 Prepatellar bursitis 05/10/2010 07/10/2010 Elevated blood pressure read ing without diagnosis of hypertension 01/17/2009 07/18/2009 Special screening for malignant neoplasms, colon 11/24/2008 09/28/2017 Unspecified essential hypertension 08/26/2008 01/17/2009 PAIN JOINT, ANKLE 01/22/2008 04/16/2015 Chest pain, unspecified 09/25/2007 09/28/19 18 Overview: Negative stress echo 10/2006, negative CT chest 07/04; ? Anxiety related Elevated blood pressure read ing without diagnosis of hypertension 06/27/2007 08/26/2008 documented as of this encounter (statuses as of 10/14/2022) [facility] History of Past illness Narrative* Problem Noted Date Resolved Date Narcotic addiction 01/14/2011 04/01/2011 Routine physical examination 07/10/2010 CRI (chronic renal insufficiency) 07/10/2010 01/14/2011 Prepatellar bursitis 05/10/2010 07/10/2010 Elevated blood pressure read ing without diagnosis of hypertension 01/17/2009 07/18/2009 Special screening for malignant neoplasms, colon 11/24/2008 09/28/2017 Unspecified essential hypertension 08/26/2008 01/17/2009 PAIN JOINT, ANKLE 01/22/2008 04/16/2015 Chest pain, unspecified 09/25/2007 09/28/19 18 Overview: Negative stress echo 10/2006, negative CT chest 07/04; ? Anxiety related Elevated blood pressure read ing without diagnosis of hypertension 06/27/2007 08/26/2008 documented as of this encounter (statuses as of 11/30/2022) [facility] History of Past illness Narrative* Problem Noted Date Resolved Date Narcotic addiction 01/14/2011 04/01/2011 Routine physical examination 07/10/2010 CRI (chronic renal insufficiency) 07/10/2010 01/14/2011 Prepatellar bursitis 05/10/2010 07/10/2010 Elevated blood pressure read ing without diagnosis of hypertension 01/17/2009 07/18/2009 Special screening for malignant neoplasms, colon 11/24/2008 09/28/2017 Unspecified essential hypertension 08/26/2008 01/17/2009 PAIN JOINT, ANKLE 01/22/2008 04/16/2015 Chest pain, unspecified 09/25/2007 09/28/19 18 Overview: Negative stress echo 10/2006, negative CT chest 07/04; ? Anxiety related Elevated blood pressure read ing without diagnosis of hypertension 06/27/2007 08/26/2008 documented as of this encounter (statuses as of 01/06/2023) [facility] of Past illness Narrative* Problem Noted Date Resolved Date Narcotic addiction 01/14/2011 04/01/2011 Routine physical examination 07/10/2010 CRI (chronic renal insufficiency) 07/10/2010 01/14/2011 Prepatellar bursitis 05/10/2010 07/10/2010 Elevated blood pressure read ing without diagnosis of hypertension 01/17/2009 07/18/2009 Special screening for malignant neoplasms, colon 11/24/2008 09/28/2017 Unspecified essential hypertension 08/26/2008 01/17/2009 PAIN JOINT, ANKLE 01/22/2008 04/16/2015 Chest pain, unspecified 09/25/2007 09/28/19 18 Overview: Negative stress echo 10/2006, negative CT chest 07/04; ? Anxiety related Elevated blood pressure read ing without diagnosis of hypertension 06/27/2007 08/26/2008 documented as of this encounter (statuses as of 02/09/2023) [facility] History of Past illness Narrative* Problem Noted Date Resolved Date Narcotic addiction 01/14/2011 04/01/2011 Routine physical examination 07/10/2010 CRI (chronic renal insufficiency) 07/10/2010 01/14/2011 Prepatellar bursitis 05/10/2010 07/10/2010 Elevated blood pressure read ing without diagnosis of hypertension 01/17/2009 07/18/2009 Special screening for malignant neoplasms, colon 11/24/2008 09/28/2017 Unspecified essential hypertension 08/26/2008 01/17/2009 PAIN JOINT, ANKLE 01/22/2008 04/16/2015 Chest pain, unspecified 09/25/2007 09/28/19 Overview: Negative stress echo 10/2006, negative CT chest 07/04; ? Anxiety related Elevated blood pressure read ing without diagnosis of hypertension 06/27/2007 08/26/2008 documented as of this encounter (statuses as of 02/16/2023) [facility] History of Past illness Narrative* Problem Noted Date Diagnosed Date Resolved Date Narcotic addiction 01/14/2011 1 Routine physical examination 07/10/2010 10/12/2015 CRI (chronic renal insufficiency) 07/10/2010 01/14/2011 Prepatellar bursitis 05/10/2010 010 Elevated blood pressure read ing without diagnosis of hypertension 01/17/2009 07/18/2009 Special screening for malign ant neoplasms, colon 11/24/2008 09/28/2017 Unspecified essential hypertension 08/26/2008 01/17/2009 PAIN JOINT, ANKLE 01/22/2008 04/16/2015 Chest pain, unspecified 09/25/200708/2017 Overview: Negative stress echo 10/2006, negative CT chest 07/04; ? Anxiety related Elevated blood pressure read ing without diagnosis of hypertension 06/27/2007 08/26/2008 documented as of this encounter (statuses as of 03/07/2023) [facility] History of Past illness Narrative* Problem Noted Date Diagnosed Date Resolved Date Narcotic addiction 01/14/2011 1 Routine physical examination 07/10/2010 10/12/2015 CRI (chronic renal insufficiency) 07/10/2010 01/14/2011 Prepatellar bursitis 05/10/2010 010 Elevated blood pressure read ing without diagnosis of hypertension 01/17/2009 07/18/2009 Special screening for malign ant neoplasms, colon 11/24/2008 09/28/2017 Unspecified essential hypertension 08/26/2008 01/17/2009 PAIN JOINT, ANKLE 01/22/2008 04/16/2015 Chest pain, unspecified 09/25/200708/2017 Overview: Negative stress echo 10/2006, negative CT chest 07/04; ? Anxiety related Elevated blood pressure read ing without diagnosis of hypertension 06/27/2007 08/26/2008 documented as of this encounter (statuses as of 03/29/2023) [facility] History of Past illness Narrative* Problem Noted Date Diagnosed Date Resolved Date Narcotic addiction 01/14/2011 1 Routine physical examination 07/10/2010 10/12/2015 CRI (chronic renal insufficiency) 07/10/2010 01/14/2011 Prepatellar bursitis 05/10/2010 010 Elevated blood pressure read ing without diagnosis of hypertension 01/17/2009 07/18/2009 Special screening for malign ant neoplasms, colon 11/24/2008 09/28/2017 Unspecified essential hypertension 08/26/2008 01/17/2009 PAIN JOINT, ANKLE 01/22/2008 04/16/2015 Chest pain, unspecified 09/25/200708/2017 Overview: Negative stress echo 10/2006, negative CT chest 07/04; ? Anxiety related Elevated blood pressure read ing without diagnosis of hypertension 06/27/2007 08/26/2008 documented as of this encounter (statuses as of 05/04/2023) [facility] History of Past illness Narrative* Problem Noted Date Diagnosed Date Resolved Date Narcotic addiction 01/14/2011 1 Routine physical examination 07/10/2010 10/12/2015 CRI (chronic renal insufficiency) 07/10/2010 01/14/2011 Prepatellar bursitis 05/10/2010 010 Elevated blood pressure read ing without diagnosis of hypertension 01/17/2009 07/18/2009 Special screening for malign ant neoplasms, colon 11/24/2008 09/28/2017 Unspecified essential hypertension 08/26/2008 01/17/2009 PAIN JOINT, ANKLE 01/22/2008 04/16/2015 Chest pain, unspecified 09/25/200708/2017 Overview: Negative stress echo 10/2006, negative CT chest 07/04; ? Anxiety related Elevated blood pressure read ing without diagnosis of hypertension 06/27/2007 08/26/2008 documented as of this encounter (statuses as of 06/12/2023) [facility] History of Past illness Narrative* Problem Noted Date Diagnosed Date Resolved Date Narcotic addiction 01/14/2011 1 Routine physical examination 07/10/2010 10/12/2015 CRI (chronic renal insufficiency) 07/10/2010 01/14/2011 Prepatellar bursitis 05/10/2010 010 Elevated blood pressure read ing without diagnosis of hypertension 01/17/2009 07/18/2009 Special screening for malign ant neoplasms, colon 11/24/2008 09/28/2017 Unspecified essential hypertension 08/26/2008 01/17/2009 PAIN JOINT, ANKLE 01/22/2008 04/16/2015 Chest pain, unspecified 09/25/200708/2017 Overview: Negative stress echo 10/2006, negative CT chest 07/04; ? Anxiety related Elevated blood pressure read ing without diagnosis of hypertension 06/27/2007 08/26/2008 documented as of this encounter (statuses as of 07/02/2023) [facility] History of Past illness Narrative* Problem Noted Date Diagnosed Date Resolved Date Narcotic addiction 01/14/2011 1 Routine physical examination 07/10/2010 10/12/2015 CRI (chronic renal insufficiency) 07/10/2010 01/14/2011 Prepatellar bursitis 05/10/2010 010 Elevated blood pressure read ing without diagnosis of hypertension 01/17/2009 07/18/2009 Special screening for malign ant neoplasms, colon 11/24/2008 09/28/2017 Unspecified essential hypertension 08/26/2008 01/17/2009 PAIN JOINT, ANKLE 01/22/2008 04/16/2015 Chest pain, unspecified 09/25/200708/2017 Overview: Negative stress echo 10/2006, negative CT chest 07/04; ? Anxiety related Elevated blood pressure read ing without diagnosis of hypertension 06/27/2007 08/26/2008 documented as of this encounter (statuses as of 07/02/2023) [facility] note* Diagnosis Lower abdominal pain- Primary Abdominal pain, other specified site Mixed hyperlipidemia Primary hypertension Unspecified essential hypertension Screening for nephropathy [facility] Diagnosis Screening for prostate cancer- Primary Special screening for malignant neoplasm of prostate Ureteral stone Calculus of ureter Mixed hyperlipidemia [facility] Diagnosis Lower abdominal pain Abdominal pain, other specified site [facility] Diagnosis Primary hypertension- Primary Unspecified essential hypertension Mixed hyperlipidemia Benign prostatic hyperplasia with lower urinary tract symptoms, symptom details unspecified Fatty liver Other chronic nonalcoholic liver disease [facility] Diagnosis Dysuria- Primary [facility] Diagnosis Chronic midline low back pain without sciatica- Primary Encounter for immunization Need for other specified prophylactic vaccination against single bacterial disease Upper back pain [facility] Diagnosis DDD (degenerative disc disease), lumbar- Primary Degeneration of lumbar or lumbosacral intervertebral disc Upper back pain [facility] Diagnosis Well adult exam- Primary Routine general medical examination at a health care facility DDD (degenerative disc disease), lumbar Degeneration of lumbar or lumbosacral intervertebral disc Benign prostatic hyperplasia with lower urinary tract symptoms, symptom details unspecified Lower abdominal pain Abdominal pain, other specified site History of colonic polyps Personal history of colonic polyps Screening for prostate cancer Special screening for malignant neoplasm of prostate Mixed hyperlipidemia Primary hypertension Unspecified essential hypertension Need for vaccination Need for prophylactic vaccination and inoculation against unspecified single disease [facility] Diagnosis Left arm pain- Primary Pain in limb [facility] Diagnosis Other chest pain- Primary [facility]* Diagnosis Benign neoplasm of colon, unspecified part of colon- Primary Lower abdominal pain Abdominal pain, other specified site History of colonic polyps Personal history of colonic polyps Non-recurrent bilateral inguinal hernia without obstruction or gangrene documented in this encounter [facility] for referral (narrative)* Diagnostic Procedure Only (Routine) - Closed Specialty Diagnoses / Procedures Referred By Contac t Referred To Contact XR IMAGING Diagnoses Chronic midline low back pain without sciatica Procedures XR LUMBAR GENERAL 3V AP/LAT/L5-S1 RADEX SPINE LUMBOSACRAL 2/3 VIEWS Alfonso Emerson MD [address] [place] [address] Xr Imaging Referral ID Status Reason Start Date Expiration Date V isits Requested Visits Authorized [id number] Closed Auto-Generate d Referral 07/01/2022 07/31/2023 1 1 * Diagnostic Procedure Only (Routine) - Closed Specialty Diagnoses / Procedures Referred By Contac t Referred To Contact XR IMAGING Diagnoses Upper back pain Procedures XR THORACIC GENERAL 3V AP/LAT/SWIMMERS RADEX SPINE THORACIC 3 VIEWS Alfonso Emerson MD [address] [place] [address] Xr Imaging Referral ID Status Reason Start Date Expiration Date V isits Requested Visits Authorized [id number] Closed Auto-Generate d Referral 07/01/2022 07/31/2023 1 1 [facility] for referral (narrative)* Outpatient Procedure (Routine) - Authorized Specialty Diagnoses / Procedures Referred By Contac t Referred To Contact [facility] Diagnoses Left arm pain Procedures ECG COMPLETE ECG ROUTINE ECG W/LEAST 12 LDS W/I&R Samuel Barkley PA-C [address] [place] [address] [facility] [place] [address] [place] [address] Referral ID Status Reason Start Date Expiration Date Visits Requested Visits Authorized [id number] Authorized Auto-Generat ed Referral 02/16/2023 02/16/2024 1 1 [facility] for referral (narrative)* Diagnostic Procedure Only (Routine) - Pending Review Specialty Diagnoses / Procedures Referred By Alesia guadalupe Referred To Contact [facility] Diagnoses Other chest pain Procedures NM CARDIAC PERF STRESS/EXERCISE MYOCARDIAL SPECT MULTIPLE STUDIES Samuel Barkley PA-C [address] [place] [address] [facility] [address] [place] [address] Referral ID Status Reason Start Date Expiration Date Visits Requested Visits Authorized [id number] Pending Review Auto-Generat ed Referral 03/06/2023 04/04/2024 1 1 [facility] for referral (narrative)* Outpatient Procedure (Routine) - Closed Specialty Diagnoses / Procedures Referred By Alesia guadalupe Referred To Contact [facility] Diagnoses Lower abdominal pain History of colonic polyps Non-recurrent bilateral inguinal hernia without obstruction or gangrene Procedures EGD DIAGNOSTIC ESOPHAGOGASTRODUODENOSCOPY TRANSORAL DIAGNOSTIC Isacc Davis MD [address] [place] [address] [facility] [address] [place] [address] Referral ID Status Reason Start Date Expiration Date Visits Re quested Visits Authorized [id number] Closed 03/14/2023 01/06/2024 1 1 * Outpatient Procedure (Routine) - Closed Specialty Diagnoses / Procedures Referred By Alesia guadalupe Referred To Contact [facility] Diagnoses Lower abdominal pain History of colonic polyps Non-recurrent bilateral inguinal hernia without obstruction or gangrene Procedures COLONOSCOPY SCREENING COLONOSCOPY FLX DX W/COLLJ SPEC WHEN PFRMD Isacc Davis MD [address] [place] [address] [facility] [address] [place] [address] Referral ID Status Reason Start Date Expiration Date Visits Re quested Visits Authorized [id number] Closed 03/14/2023 01/06/2024 1 1 [facility] Outpatient Procedure (Routine) - Closed Specialty Diagnoses / Procedures Referred By Alesia guadalupe Referred To Contact [facility] Diagnoses Lower abdominal pain History of colonic polyps Non-recurrent bilateral inguinal hernia without obstruction or gangrene Procedures EGD DIAGNOSTIC ESOPHAGOGASTRODUODENOSCOPY TRANSORAL DIAGNOSTIC Isacc Davis MD [address] [place] [address] [facility] [address] [place] [address] Referral ID Status Reason Start Date Expiration Date Visits Re quested Visits Authorized [id number] Closed 03/14/2023 01/06/2024 1 1 [facility] Assessments Diagnosis Unstable right ankle Other joint derangement, not elsewhere classified, ankle and foot Summary Purpose Family History No Family History Records FoundNo Family History Records FoundNo Family History Records Found Advance Directives Documents on File Type Date Recorded Patient [employer] Expl anation Advance Directive(s) 03/13/2018 7:00 AM Documents on File Type Date Recorded Patient [employer] T[employer] Expl anation Advance Directive(s) 03/13/2018 7:00 AM Reason for Referral Specialty Diagnoses / Procedures Referred By Alesia guadalupe Referred To Contact CT IMAGING Diagnoses Lower abdominal pain Procedures CT ABD/PEL W IVCON CT ABD & PELVIS W/CONTRAST Alfonso Emerson MD [address] [place] [address] Ct Imaging Referral ID Status Reason Start Date Expiration Date Visits Requested Visits Authorized [id number] Authorized Auto-Generat ed Referral 01/08/2022 02/07/2023 1 1 Referral ID Status Reason Start Date Expiration Date V isits Requested Visits Authorized [id number] Closed Auto-Generate d Referral 01/08/2022 02/07/2023 1 1 Specialty Diagnoses / Procedures Referred By Alesia guadalupe Referred To Contact [facility] Diagnoses DDD (degenerative disc disease), lumbar Upper back pain Procedures CONSULT TO PHYSICAL THERAPY PHYSICAL THERAPY EVALUATION HIGH COMPLEX 45 MINS Alfonso Emerson MD [address] [place] [address] [facility] [place] [address] Referral ID Status Reason Start Date Expiration Date Visits Requested Visits Authorized [id number] Pending Review Auto-Generat ed Referral 07/01/2022 07/01/2023 1 1 Specialty Diagnoses / Procedures Referred By Contac t Referred To Contact General Surgery Diagnoses Lower abdominal pain History of colonic polyps Procedures CONSULT TO GENERAL SURGERY OFFICE/OUTPATIENT [facility] 60-74 MINUTES Alfonso Emerson MD [address] [place] [address] Referral ID Status Reason Start Date Expiration Date Visits Requested Visits Authorized [id number] Pending Review PCP Requested Referral 11/30/2022 11/30/2023 1 1 Medications Administered Section Inactive Administered Medications - up to 3 most recent administrations Medication Order MAR Action Action Date Dose Rate Site benzocaine 20% 1 [place] (TOPEX) 1 [place], TOPICAL, DIRECTED, Starting on Mon03/14/23 at 1030, Until Mon03/14/23 at 1429, DOSING DIRECTED BY PHYSICIAN FOR PROCEDURAL SEDATION ONLY - Pharmaceutical Waste: Aerosol -, Intraprocedure Given by [facility] 03/14/2023 10:06 AM EDT 2 Sprays diphenhydrAMINE 12.5-50 mg injection (BENADRYL) 12.5-50 mg, INTRAVENOUS, DIRECTED, Starting on Mon03/14/23 at 1030, Until Mon03/14/23 at 1429, DOSING DIRECTED BY PHYSICIAN FOR PROCEDURAL SEDATION ONLY, Intraprocedure Given by [facility] 03/14/2023 10:11 AM EDT 50 mg fentaNYL 50 mcg/mL 25-100 mcg injection (SUBLIMAZE) 25-100 mcg, INTRAVENOUS, DIRECTED, Starting on Mon03/14/23 at 1030, Until Mon03/14/23 at 1429, DOSING DIRECTED BY PHYSICIAN FOR PROCEDURAL SEDATION ONLY, Intraprocedure Given by [facility] 03/14/2023 10:10 AM EDT 50 mcg Additional Source Comments (unrecognized sect ion and content) No Status Records FoundNo Status Records FoundNo Status Records Found INFORMATION SOURCE (unrecogn ized section and content) DATE CREATED AUTHOR AUTHOR'S ORGANMARGI ATION 03/17/2023 [facility] DATE CREATED AUTHOR AUTHOR'S ORGANMARGI ATION 06/13/2023 [facility] Source Comments (unrecognize d section and content) In the event this informatio n is protected by the Federal Confidentiality of Alcohol and Drug Abuse Patient Records regulations: The Federal rules restrict any use of the information to criminally investigate or prosecute any alcohol or drug abuse patient.[facility] the event this information is protected by the Federal Confidentiality of Alcohol and Drug Abuse Patient Records regulations: The Federal rules restrict any use of the information to criminally investigate or prosecute any alcohol or drug abuse patient.[facility] the event this information is protected by the Federal Confidentiality of Alcohol and Drug Abuse Patient Records regulations: The Federal rules restrict any use of the information to criminally investigate or prosecute any alcohol or drug abuse patient.[facility] the event this information is protected by the Federal Confidentiality of Alcohol and Drug Abuse Patient Records regulations: The Federal rules restrict any use of the information to criminally investigate or prosecute any alcohol or drug abuse patient.[facility] the event this information is protected by the Federal Confidentiality of Alcohol and Drug Abuse Patient Records regulations: The Federal rules restrict any use of the information to criminally investigate or prosecute any alcohol or drug abuse patient.[facility] the event this information is protected by the Federal Confidentiality of Alcohol and Drug Abuse Patient Records regulations: The Federal rules restrict any use of the information to criminally investigate or prosecute any alcohol or drug abuse patient.[facility] the event this information is protected by the Federal Confidentiality of Alcohol and Drug Abuse Patient Records regulations: The Federal rules restrict any use of the information to criminally investigate or prosecute any alcohol or drug abuse patient.[facility] the event this information is protected by the Federal Confidentiality of Alcohol and Drug Abuse Patient Records regulations: The Federal rules restrict any use of the information to criminally investigate or prosecute any alcohol or drug abuse patient.[facility] the event this information is protected by the Federal Confidentiality of Alcohol and Drug Abuse Patient Records regulations: The Federal rules restrict any use of the information to criminally investigate or prosecute any alcohol or drug abuse patient.[facility] the event this information is protected by the Federal Confidentiality of Alcohol and Drug Abuse Patient Records regulations: The Federal rules restrict any use of the information to criminally investigate or prosecute any alcohol or drug abuse patient.[facility] the event this information is protected by the Federal Confidentiality of Alcohol and Drug Abuse Patient Records regulations: The Federal rules restrict any use of the information to criminally investigate or prosecute any alcohol or drug abuse patient.[facility] the event this information is protected by the Federal Confidentiality of Alcohol and Drug Abuse Patient Records regulations: The Federal rules restrict any use of the information to criminally investigate or prosecute any alcohol or drug abuse patient.[facility] the event this information is protected by the Federal Confidentiality of Alcohol and Drug Abuse Patient Records regulations: The Federal rules restrict any use of the information to criminally investigate or prosecute any alcohol or drug abuse patient.[facility] the event this information is protected by the Federal Confidentiality of Alcohol and Drug Abuse Patient Records regulations: The Federal rules restrict any use of the information to criminally investigate or prosecute any alcohol or drug abuse patient.[facility] the event this information is protected by the Federal Confidentiality of Alcohol and Drug Abuse Patient Records regulations: The Federal rules restrict any use of the information to criminally investigate or prosecute any alcohol or drug abuse patient.[facility] the event this information is protected by the Federal Confidentiality of Alcohol and Drug Abuse Patient Records regulations: The Federal rules restrict any use of the information to criminally investigate or prosecute any alcohol or drug abuse patient.[facility] the event this information is protected by the Federal Confidentiality of Alcohol and Drug Abuse Patient Records regulations: The Federal rules restrict any use of the information to criminally investigate or prosecute any alcohol or drug abuse patient.[facility] the event this information is protected by the Federal Confidentiality of Alcohol and Drug Abuse Patient Records regulations: The Federal rules restrict any use of the information to criminally investigate or prosecute any alcohol or drug abuse patient.[facility] the event this information is protected by the Federal Confidentiality of Alcohol and Drug Abuse Patient Records regulations: The Federal rules restrict any use of the information to criminally investigate or prosecute any alcohol or drug abuse patient.[facility] the event this information is protected by the Federal Confidentiality of Alcohol and Drug Abuse Patient Records regulations: The Federal rules restrict any use of the information to criminally investigate or prosecute any alcohol or drug abuse patient.[facility] the event this information is protected by the Federal Confidentiality of Alcohol and Drug Abuse Patient Records regulations: The Federal rules restrict any use of the information to criminally investigate or prosecute any alcohol or drug abuse patient.[facility] the event this information is protected by the Federal Confidentiality of Alcohol and Drug Abuse Patient Records regulations: The Federal rules restrict any use of the information to criminally investigate or prosecute any alcohol or drug abuse patient.[facility] the event this information is protected by the Federal Confidentiality of Alcohol and Drug Abuse Patient Records regulations: The Federal rules restrict any use of the information to criminally investigate or prosecute any alcohol or drug abuse patient.[facility] Reason for Visit (unrecogniz ed section and content) Reason Comments Results Reason Comments Radiology CT Specialty Diagnoses / Procedures Referred By Alesia guadalupe Referred To Contact CT IMAGING Diagnoses Lower abdominal pain Procedures CT ABD/PEL W IVCON CT ABD & PELVIS W/CONTRAST Alfosno Emerson MD [address] [place] [address] Ct Imaging Referral ID Status Reason Start Date Expiration Date V isits Requested Visits Authorized [id number] Closed Auto-Generate d Referral 01/08/2022 02/07/2023 1 1 Reason Comments Faxed to [facility] Reason Comments Recheck Reason Comments possible prostatitis Feels like his pros paul is enlarged-has had before and same feeling x 3 days Reason Comments Follow Up Reason Comments Results Reason Comments Patient Request Reason Onset Date Comments Refill Request 08/02/2022 Reason Onset Date Comments Refill Request 10/13/2022 Reason Comments Physical Reason Comments 03/14/2023 COLON ASC Reason Comments COLONOSCOPY Reason Comments Neck Pain 5 weeks Reason Comments Patient Question Reason Onset Date Comments Refill Request 03/29/2023 Reason Comments Results Stress test Care Teams (unrecognized sec tion and content) 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 Specialty Start Date End Date Alfonso Emerson MD [address] [place], [place] [phone] PCP - General Family Practice 04/16/15 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 Specialty Start Date End Date Alfonso Emerson MD [address] [place], [place] [id number] PCP - General Family Practice 04/16/15 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 Specialty Start Date End Date Alfonso Emerson MD [address] [place], [place] [phone] PCP - General Family Practice 04/16/15 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 Specialty Start Date End Date Alfonso Emerson MD [address] [place], [place] [phone] PCP - General Family Practice 04/16/15 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 Specialty Start Date End Date Alfonso Emerson MD [address] [place] [address] PCP - General Family Medicine 04/16/15 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 Specialty Start Date End Date Alfonso Emerson MD [address] [place] [address] PCP - General Family Medicine 04/16/15 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 Specialty Start Date End Date Alfonso Emerson MD [address] [place] [address] PCP - General Family Medicine 04/16/15 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 Specialty Start Date End Date Alfonso mEerson MD [address] [place] [address] PCP - General Family Medicine 04/16/15 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 Specialty Start Date End Date Alfonso Emerson MD [address] [place] [address] PCP - General Family Medicine 04/16/15 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 Specialty Start Date End Date Alfonso Emerson MD [address] [place] [address] PCP - General Family Medicine 04/16/15 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 Specialty Start Date End Date Alfonso Emerson MD [address] [place] [address] PCP - General Family Medicine 04/16/15 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 Specialty Start Date End Date Alfonso Emerson MD [address] [place] [address] PCP - General Family Medicine 04/16/15 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 Specialty Start Date End Date Alfonso Emerson MD [address] [place] [address] PCP - General Family Medicine 04/16/15 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 Specialty Start Date End Date Alfonso Emerson MD [address] [place] [address] PCP - General Family Medicine 04/16/15 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 Specialty Start Date End Date Alfonso Emerson MD [address] [place] [address] PCP - General Family Medicine 04/16/15 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 Specialty Start Date End Date Alfonso Emerson MD [address] [place] [address] PCP - General Family Medicine 04/16/15 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 Specialty Start Date End Date Alfonso Emerson MD [address] [place] [address] PCP - General Family Medicine 04/16/15 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 Specialty Start Date End Date Alfonso Emerson MD [address] [place], [place] [id number] PCP - General Family Medicine 04/16/15 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 Specialty Start Date End Date Alfonso Emerson MD [address] [place] [address] PCP - General Family Medicine 04/16/15 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 Specialty Start Date End Date Alfonso Emerson MD [address] [place], [place] [id number] PCP - General Family Medicine 04/16/15 FOR RECORDS PERTAINING TO PATIENTS WHO ARE OR HAVE BEEN ENROLLED IN A CHEMICAL DEPENDENCY/SUBSTANCEABUSE PROGRAM, SOME INFORMATION MAY BE OMITTED. This clinical summary was aggregated from multiple sources. Caution should be exercised in using it in the provision of clinical care. This summary normalizes information from multiple sources, and as a consequence, information in this document may materially change the coding, format and clinical context of patient data. In addition, data may be omitted in some cases. CLINICAL DECISIONS SHOULD BE BASED ON THE PRIMARY CLINICAL RECORDS. [facility] [employer] [facility]. provides no warranty or guarantee of the accuracy or completeness of information in this document.
[2023-10-24 10:48] LABS: PSA,Total- Diagnostic 5.04 ng/mL (0.0-4.0)
== END | disposition home or self-care (01) ==
LOC: LAB 09:07
PROVIDERS: PCP Family Medicine; Referring Provider Urology; Visit Provider Urology
DX: R97.20 Elevated prostate specific antigen [PSA] (principal)
CPT/HCPCS: 36415; 84153

== ENCOUNTER 2024-09-16 07:30 | Emergency (ER) | payer OTHER, SELFPAY ==
[2024-09-16 07:30] VITALS: BP 172/110; PULSE 75; RESP 16; TEMP 37.1; O2SAT 100; BMI 29.7
--- NOTE | 2024-09-16 07:52 | CT_ITS ---
EXAM: CT ABDOMEN AND PELVIS WITH INTRAVENOUS CONTRAST CLINICAL INDICATION: lower abd pain X 2 days TECHNIQUE: Helically acquired images were obtained of the abdomen and pelvis with intravenous contrast. This CT exam was performed using one or more of the following dose reduction techniques: automated exposure control, adjustment of the mA and/or kV according to patient size, and/or use of iterative reconstruction technique. CONTRAST: IV 100mL Isovue-370 RADIATION DOSE: CTDIvol = 12.14 mGy, DLP = 912.86 mGy-cm COMPARISON: CTA chest with and without contrast 08/27/2013. No prior CT abdomen for comparison. FINDINGS: LOWER THORAX: Unremarkable. Lung bases are clear. No cardiomegaly. No significant pericardial effusion. ABDOMEN: LIVER: Mild diffuse fatty infiltration of the liver. GALLBLADDER AND BILE DUCTS: Unremarkable. No calcified gallstones. No gallbladder distention or wall edema. No intra- or extrahepatic biliary ductal dilation. PANCREAS: Unremarkable. No focal cystic or solid mass. SPLEEN: Unremarkable. Normal size without focal cystic or solid mass. ADRENALS: Unremarkable. No nodules. KIDNEYS AND URETERS: Unremarkable. Normal renal size and position. No hydronephrosis. STOMACH AND BOWEL: Unremarkable. No stomach or bowel distention. No focal inflammatory change. PELVIS: APPENDIX: Normal. BLADDER: Unremarkable. REPRODUCTIVE: Enlarged central lobe of the prostate gland is at least BPH. ABDOMEN and PELVIS: INTRAPERITONEAL SPACE: Unremarkable. No ascites or other fluid collection. No free air. BONES/JOINTS: Unremarkable. No suspicious lytic or blastic abnormality. SOFT TISSUES: Unremarkable. No discrete abdominal or pelvic wall hernia. VASCULATURE: Unremarkable. Abdominal aorta is non-dilated. LYMPH NODES: Unremarkable. No enlarged lymph nodes. CT/Abdomen/Pelvis W IV Cont ONLY IMPRESSION: 1. No acute findings in the abdomen or pelvis. 2. Mild diffuse hepatic steatosis is unchanged. Electronically Signed: Matt Shelby MD at 8:53 EST ,
--- NOTE | 2024-09-16 07:52 | EDS_ITS ---
HPI HPI - GI History of Present Illness Chief Complaint: Abd Pain Informant: patient Abdominal Pain/Flank Pain Onset: Days Context: Gradual Onset Timing: Continuous Location: - (Suprapubic and bilateral lower quadrant.) Current Severity: Mild Maximum Severity: Mild Worsened by: Nothing Relieved by: Nothing Nausea/Vomiting/Emesis GI Symptom: Negative for Nausea or Vomiting Diarrhea/Melena/Hematochezia GI Symptom: Negative for Diarrhea, Melena or Hematochezia Associated Symptoms Associated Symptoms: Negative for Dysuria, Frequency, Hematuria or Urgency Narrative Narrative: 64-year-old male known history of prior abdominal hernias no prior abdominal surgeries. Also has a known enlarged prostate currently is on Cipro and a prostate medication he believes his Flomax. Says he only takes them as needed. Complaining of lower abdominal discomfort started either Monday night or Monday morning. He denies any nausea vomiting or diarrhea. He denies any constipation dysuria or hematuria. He denies any fever or chills. Denies any weight loss. Nothing particular makes the pain better or worse. Prior similar symptoms: Yes Recent Illness/Hospitalization: No PFSH PFS Medical History Hypertension Home Medications ?Medication ?Instructions ?Recorded ?Last Taken ?Type diclofenac sodium 25 mg mg PO 08/25/23 Unknown History tablet,delayed release losartan 50 mg-hydrochlorothiazide tab PO DAILY 08/25/23 Unknown History 12.5 mg tablet Allergy/AdvReac Type Severity Reaction Status Date / Time No Known Allergies Allergy Verified 09/16/24 07:30 Surgical History H/O ankle fusion Social History Smoking Status: Never smoker ROS ROS ED ROS Narrative Lower abdominal pain. Denies other complaints. Good appetite. Constitutional Constitutional ED: Denies chills or fever(s) ENT ENT ED: Denies ear pain Cardiovascular Cardiovascular: Denies chest pain Respiratory/Chest Respiratory/Chest: Denies cough or dyspnea Gastrointestinal Gastrointestinal: Reports abdominal pain; Denies constipation, diarrhea, melena, nausea or vomiting Genitourinary Genitourinary ED: Denies dysuria or hematuria Musculoskeletal Musculoskeletal: Denies arthralgias or back pain Integumentary Denies abscess Neurologic Neurologic: Denies headache(s) Psychiatric Psychiatric: Denies anxiety Endocrine Endocrinology: Denies polydipsia or polyphagia Hematologic/Lymphatic Hematologic/Lymphatic: Denies easy bleeding, easy bruising or lymphadenopathy Allergic/Immunologic Allergic/Immunologic ED: Denies mouth swelling or tongue swelling EXAM Physical Exam Narrative Exam Narrative: Well-appearing 64-year-old male. Vital signs stable afebrile. H EENT exam unremarkable. Mytrex membranes. Pupils round react light. Neck nontender. Lungs clear to auscultation bilaterally. Heart regular rate and rhythm rate about 75 no murmur. Chest wall ribs nontender. Back nontender. Abdomen soft nondistended normal bowel sounds without peritoneal signs. Really does not have significant abdominal tenderness at this time. He does have a ventral hernia that spontaneously reduces on its own. I do not see any inguinal hernias at this time. There is no McBurney's point tenderness no right upper quadrant tenderness. No mass. No pulsatile mass. External exam is circumcised and nontender. There is no swelling. No redness. Moving all 4 extremities. Nontender no edema neurologically is awake and alert. Answering questions following commands. Very benign exam. Const Vital Signs: 09/16/24 07:30 Temperature 98.7 F Temperature Source Oral Pulse Rate 75 Respiratory Rate 16 Blood Pressure 172/110 H Blood Pressure Mean 130 Pulse Ox 100 Oxygen Delivery Method Room Air Positive well nourished and well developed; Negative for cachectic, contractures or unkempt General Appearance ED: well developed and NAD; Negative for unkempt, cachectic, contractures or pallor Nutritional Appearance: Negative for cachectic HEENT Reports moist mucous membranes normocephalic and atraumatic Eyes PERRL and EOMs intact bilaterally General Eye ED: Negative for pale conjunctiva or scleral icterus Neck no lymphadenopathy, supple and no JVD General: Negative for tenderness Carotids: Negative for other Lymph Lymphatic: Negative for other Resp normal respiratory effort and clear to auscultation bilaterally Effort and Inspection: Negative for respiratory distress Auscultation: Negative for rales, rhonchi or wheezes Cardio regular rate, regular rhythm, S1 normal heart sound, S2 normal heart sound and no murmurs GI non-tender, non-distended and no masses GI Narrative: Patient has a ventral hernia that spontaneously reduces on its own. It is nontender. Inspection: Negative for abdominal distention Auscultation: normoactive bowel sounds Palpation: soft and hernia; Negative for tender, guarding, mass, pulsatile mass or rebound tenderness present Back/Spine no CVA tenderness General Back: Negative for CVA tenderness Cervical Spine: Negative for cervical spine tenderness Thoracic Spine / Upper Back: Negative for thoracic spinal tenderness Lumbar Spine / Lower Back: Negative for lumbar spinal tenderness Extremity full ROM General Extremety ED: Negative for edema, tenderness or other findings General Extremity: Negative for edema or other findings Neuro CN's II-XII intact bilaterally, moves all extremities, no sensory deficits noted and gait normal Sensorium / Orientation: alert, oriented to person, oriented to place and oriented to time; Negative for orientation impaired, confused or lethargic Motor Exam: strength 5/5 throughout Psych mental status grossly normal and thought process normal Appearance: Negative for unkempt Attitude: No agitated Mood & Affect: Negative for depressed, anxious or tearful Skin no wounds General Skin Exam: Negative for jaundice or pallor Lesions: no lesions Rashes: no rashes Trauma: Negative for abrasion MDM MDM MDM Narrative Medical decision making narrative: 64-year-old male with lower abdominal pain with a benign exam. CAT scan and labs are being obtained. He has a ventral hernia but it is nontender it is not incarcerated or strangulated. I do not clinically think this is appendicitis. Recently has been treated with symptoms with Flomax and is currently on Cipro. He does not need anything for pain he is not having any nausea. Repeat exam patient is doing well at 9:49 AM. I went over all his test results with him. Repeat abdominal exam is benign. He can follow-up as an outpatient for his ventral hernia. Tylenol Motrin for pain. History & Record Review Discussion w/independent historian: Patient Lab Data Attestation: I reviewed the patient's lab results. Lab results narrative: CBC normal. White count of 5. H&H 15 and 43. Platelets 303. Electrolytes show a gap of 6. A BUN of 24 and creatinine 1.3. Liver enzymes are unremarkable. Lipase is 224. Urinalysis is normal. CAT scan is read by the radiologist showed no acute abnormality. Labs: Laboratory Results - last 24 hr 09/16/24 09/16/24 07:58 08:09 WBC 5.8 RBC 4.79 Hgb 15.6 Hct 43.8 MCV 91.4 MCH 32.6 H MCHC 35.6 RDW Std Deviation 40.4 RDW Coeff of Alex 12.1 Plt Count 303 MPV 9.7 Immature Gran % (Auto) 0.300 Neut % (Auto) 62.1 Lymph % (Auto) 25.4 [place] % (Auto) 9.0 Eos % (Auto) 2.2 Baso % (Auto) 1.0 Absolute Neuts (auto) 3.6 Absolute Lymphs (auto) 1.47 Nucleated RBC % 0 Sodium 139 Potassium 3.5 Chloride 108 H Carbon Dioxide 26.0 Anion Gap 6 BUN 24 H Creatinine 1.33 H Estim Creat Clear Calc 62.61 Est GFR (MDRD) Af Amer 70 Est GFR (MDRD) Non-Af 58 L BUN/Creatinine Ratio 18.0 Glucose 117 H Calcium 9.0 Total Bilirubin 0.90 AST 17 ALT 25 Alkaline Phosphatase 34 L Total Protein 7.8 Albumin 4.4 Globulin 3.4 Albumin/Globulin Ratio 1.3 Lipase 224 H Urine Color Yellow Urine Clarity Clear Urine pH 6.0 Ur Specific [place] 1.015 Urine Protein 15 H Urine Glucose (UA) Normal Urine Ketones Negative Urine Occult Blood Negative Urine Nitrite Negative Urine Bilirubin Negative Urine Urobilinogen Normal Ur Leukocyte Esterase Negative Urine RBC 0 SEEN Urine WBC 0 SEEN Ur Squamous Epith Cells 0 SEEN Urine Bacteria 0 SEEN Urine Mucus 0 SEEN Radiography Diagnostic Testing: Clinical Impression(s) from Imaging Studies Abdomen/Pelvis CT 09/16/24 07:52 IMPRESSION: 1. No acute findings in the abdomen or pelvis. 2. Mild diffuse hepatic steatosis is unchanged. Electronically Signed: Matt Shelby MD at 8:53 EST Reading Location ID and State: [address] [place] [address] , Service support , Discharge Plan Triage Chief Complaint: Abd Pain ED Provider: Gus Denney Dx/Rx/DC Orders Clinical Impression: Abdominal pain, Ventral hernia Instructions: Abdominal Pain, What Is a Hernia? Prescriptions: No Action diclofenac sodium 25 mg tablet,delayed release (DR/EC) PO Patient Comments: take 1 tablet by mouth twice a day for 28 DAYS *TAKE ON A FULL STOMACH* losartan-hydrochlorothiazide 50-12.5 mg tablet PO DAILY Primary Care Provider: Neil Emerson Referrals: Liat Alberto MD [Med Staff - Active Staff] - 1-2 Weeks Neil Emerson MD [Primary Care Provider] - Activity Restrictions/Additional Instructions: CAT scan the labs look good. You have a ventral hernia. She can follow-up with general surgery to determine if and when you want that surgically repaired. He can discuss that with the surgeon. Call their office for an appointment. Motrin and Tylenol for pain. Print Language: Belarusian Disposition Disposition: Home, Self Care
[2024-09-16 08:07] LABS: Absolute Lymphocyte Count 1.47 X10^3/uL (0.83-4.51); Absolute Neutrophil Count 3.6 X10^3/uL (2.0-7.7); Basophil# 0.06 X10^3/uL; Eosinophil# 0.13 X10^3/uL; Eosinophils% 2.2 % (0-5); Hematocrit 43.8 % (40-54); Hemoglobin 15.6 g/dL (13.0-16.5); Lymphocyte # 1.47 X10^3/ul (0.83-4.51); Lymphocyte % 25.4 % (19-41); Mean Corp Hgb Conc 35.6 g/dL (32-36); Mean Corpuscular Hgb 32.6 pg (27.0-32.0); Mean Corpuscular Volume 91.4 fL (80-94); Mean Platelet Vol. 9.7 fl (6.2-12.0); Monocyte# 0.52 X10^3/uL; NRBC Flagged by Analyzer 0 % (0-5); Neutrophil # 3.58 X10^3/uL (2.7-7.7); Neutrophil % 62.1 % (47-70); Platelet Count 303 K/mm3 (150-450); RBC Distribution Width CV 12.1 % (11.6-14.6); RBC Distribution Width SD 40.4 fl (35.1-43.9); Red Blood Count 4.79 M/mm3 (4.6-6.2); White Blood Count 5.8 K/mm3 (4.4-11.0)
[2024-09-16 08:17] LABS: Bacteria 0 SEEN /hpf (None Seen); Mucous, Urine 0 SEEN /hpf (<or=2+); Red Blood Cells-Urine 0 SEEN /hpf (0-5); Squamous Epithelial Cells - UA 0 SEEN /hpf (0-5); White Blood Cells 0 SEEN /hpf (0-5)
[2024-09-16 08:28] LABS: ALB/GLOB Ratio 1.3 RATIO (0.9-2.4); AST(SGOT) 17 U/L (15-37); Alanine Aminotransfer ALT/SGPT 25 U/L (16-61); Albumin, Serum 4.4 g/dL (3.2-5.0); Alkaline Phosphatase 34 U/L (45-117); Anion Gap 6 (5-15); BUN 24 mg/dL (7-18); Chloride 108 mmol/L (98-107); Creatinine, Serum 1.33 mg/dL (0.70-1.30); EST Glomerular Filtration Rate 58 mL/min (>60); Est Glom Filt Rate - Afr Amer 70 mL/min (>60); Estimated Creatinine Clearance 62.61 ml/min; Globulin 3.4 g/dL (2.2-4.2); Glucose 117 mg/dL (74-106); Lipase 224 U/L (13-75); Potassium 3.5 mmol/L (3.5-5.1); Protein, Total 7.8 g/dL (6.4-8.2); Sodium Level 139 mmol/L (136-145)
[2024-09-16 08:32] LABS: Color, Urine Yellow (Yellow); Glucose, Dipstick Normal (Normal); Ketone-Dipstick Negative (Negative); Leukocyte Esterase-Dipstick Negative /ul (Negative); Nitrite-Dipstick Negative (Negative); Occult Blood-Urine Negative /ul (Negative); Protein-Dipstick 15 mg/dl (Negative); Specific Gravity, Urine 1.015 (1.002-1.030); Urine Bilirubin Dipstick Negative (Negative); Urine Clarity Clear (Clear); Urine Urobilinogen Normal (Normal)
[2024-09-16 09:30] VITALS: BP 134/78; PULSE 64; RESP 18; O2SAT 98
[2024-09-16 10:35] VITALS: BP 132/64; PULSE 78; RESP 16; TEMP 37.2; O2SAT 99
== END 2024-09-16 10:36 | disposition home or self-care (01) ==
PROVIDERS: Emergency Provider Emergency Medicine; PCP Family Medicine; Visit Provider Emergency Medicine
DX: K43.9 Ventral hernia without obstruction or gangrene (principal); I10 Essential (primary) hypertension; Z79.899 Other long term (current) drug therapy
CPT/HCPCS: 74177; 80053; 81001; 83690; 85025; 99283; Q9967; A4216

== ENCOUNTER → 2024-09-19 | Outpatient (CLI) | payer OTHER, SELFPAY ==
[2024-09-19 15:49] LABS: PSA,Total - Annual Screen 5.51 ng/mL (0.00-4.00)
[2024-09-22 08:07] LABS: PSA, Free 2.29 ng/mL; PSA, Free % 42.8 % (.)
== END | disposition home or self-care (01) ==
LOC: LAB 14:54
PROVIDERS: PCP Family Medicine; Referring Provider Nurse Practitioner; Visit Provider Nurse Practitioner
DX: R97.20 Elevated prostate specific antigen [PSA] (principal)
CPT/HCPCS: 36415; 84153; 84154; G0103

== ENCOUNTER → 2025-07-03 | Outpatient (CLI) | payer MEDICARE, OTHER, SELFPAY ==
[2025-07-05 10:08] LABS: PSA, Free 2.35 ng/mL; PSA, Free % 39.9 % (.); PSA, Total Ultrasensitive 5.890 ng/mL (0.000-4.000)
== END | disposition home or self-care (01) ==
LOC: LAB 15:01
PROVIDERS: PCP Family Medicine; Referring Provider Urology; Visit Provider Urology
DX: R97.20 Elevated prostate specific antigen [PSA] (principal)
CPT/HCPCS: 36415; 84153; 84154

== ENCOUNTER → 2025-07-18 | Outpatient (CLI) | payer MEDICARE, OTHER, SELFPAY ==
--- NOTE | 2025-07-18 16:15 | CT_ITS ---
PROCEDURE: CT ABD/PELVIS W/WO CONTRAST 07/18/2025 REASON FOR EXAM: GROSS HEMATURIA TECHNIQUE: Procedure Code: [id number] Modality: CT Procedure: CT ABD/PELVIS W/WO CONTRAST Coronal and Sagittal reconstruction series were provided. CONTRAST: Isovue 370 VOLUME: 100 mL One or more dose reduction techniques were used (e.g., Automated exposure control, adjustment of the mA and/or kV according to patient size, use of iterative reconstruction technique. RADIATION DOSE SUMMARY: CTDlvol: 63.44 mGy DLP: 2809.20 mGycm COMPARISON: 09/16/2024 FINDINGS: Lung bases: Clear Liver: Diffuse fatty infiltration. Gallbladder: Unremarkable Spleen: Normal size. There is a 1 cm accessory spleen Pancreas: Normal size without evidence of mass surrounding inflammation or ductal dilation. Adrenals: Unremarkable Kidneys: No obstructive uropathy, or suspicious solid renal lesion Bladder: Bladder is incompletely distended but unremarkable. There is however impingement upon the inferior aspect of the bladder from an enlarged prostate which contains multiple calcifications suggesting chronic prostatitis. The prostate measures 5.8 by 6.1 by 6.1 cm Bowel: Small bowel loops are unremarkable, no CTA evidence of obstruction. Retained stool noted in the colon with scattered colonic diverticula, no CTA evidence of acute diverticulitis. Appendix: Normal appendix seen on coronal recon images 56 through 62. Lymph nodes: No suspicious mesenteric or retroperitoneal lymphadenopathy Vasculature: The abdominal aorta and IVC are normal. Peritoneum / Retroperitoneum: No free fluid or air Bones: Degenerative bony changes CT/CT Abd/Pelvis W/WO Contrast IMPRESSION: No obstructive uropathy or suspicious solid renal lesion. The bladder itself i s unremarkable but there is enlargement of the prostate which impinges upon the inferior aspect of the bladder and may be resp onsible for the hematuria Fatty liver, no discrete lesion No free intraperitoneal fluid, air, or suspicious adenopathy, normal appendix v isualized Scattered colonic diverticula, no CT evidence of acute diverticulitis Reading Location: [id number]
== END | disposition home or self-care (01) ==
LOC: CT 16:13
PROVIDERS: PCP Family Medicine; Referring Provider Urology; Visit Provider Urology
DX: N40.1 Benign prostatic hyperplasia with lower urinary tract symptoms (principal); R31.0 Gross hematuria
CPT/HCPCS: 74178; Q9967; A4216

== ENCOUNTER 2025-08-01 13:11 | Emergency (ER) | payer MEDICARE, OTHER, SELFPAY ==
[2025-08-01] VITALS (8 sets, daily range): BP systolic 145–153; BP diastolic 83–99; PULSE 84–110; RESP 14–16; TEMP 37.6; O2SAT 97–100; BMI 29.5
--- NOTE | 2025-08-01 13:46 | EKG12_ITS ---
Test Reason : CHEST TIGHTNESS Blood Pressure : */* mmHG Vent. Rate : 104 BPM Atrial Rate : 104 BPM P-R Int : 168 ms QRS Dur : 100 ms QT Int : 352 ms P-R-T Axes : 60 78 19 degrees QTcB Int : 462 ms Sinus tachycardia Otherwise normal ECG Confirmed by CADEN BYRNES, WESTON ([id number]), editor trade journal BENITA COMBS ([id number]) on 08/04/2025 6:05:50 AM Referred By: Confirmed By: WESTON NEGRETE MD
--- NOTE | 2025-08-01 13:47 | EX.ED.DYSGE1 ---
HPI History of Present Illness Chief Complaint: Complaint Informant: patient and spouse/S.O. Narrative Narrative: 65-year-old male presenting with intermittent periumbilical abdominal pain for the past 3 days that started today after he had cystoscopy which was done in urology by Dr. Stoddard because patient was having hematuria and hematospermia and small amounts intermittently. He states the cystoscopy was very painful, and had a fever he had started taking doxycycline prior to the cystoscopy for several days, and he started having this pain the day after and as a result he was prescribed ciprofloxacin which he has been taking for a couple days now. States the pain has been getting worse although it is intermittent, random and he cannot think of a trigger, and states the pain is not present right now. However he did develop fevers and chills this morning and measured his maximum temperature at 100.7. For this reason after calling his PCP he was rereferred here to the emergency room which is why he is here now. He states prior to coming here he was having some chest tightness that was temporary and gone now and he thinks it was his anxiety and states he gets this all the time and he is not concerned about the chest discomfort. He had no other acute thoracic symptom such as dyspnea or syncope or palpitations. He also has been having some left-sided abdominal pain which he states is separate and chronically recurring for years. That is also not present at the current moment. In addition to all of this he states he was told to take Azo after his painful cystoscopy, he has not taken it for a couple days and denies any dysuria now, but states he has an enlarged prostate and that makes it difficult for him to get urine out chronically. The only other new medication that he is currently on this week except ciprofloxacin is [facility] Medical History Hypertension Home Medications ?Medication ?Instructions ?Recorded ?Last Taken ?Type diclofenac sodium 25 mg mg PO 08/25/23 Unknown History tablet,delayed release losartan 50 mg-hydrochlorothiazide tab PO DAILY 08/25/23 Unknown History 12.5 mg tablet nitrofurantoin 100 mg PO Q12 #14 CAPSULES 08/01/25 Unknown Rx monohydrate/macrocrystals 100 mg capsule tramadol 50 mg tablet 50 mg PO Q6H PRN pain 2 days #8 08/01/25 Unknown Rx tabs Allergy/AdvReac Type Severity Reaction Status Date / Time No Known Allergies Allergy Verified 08/01/25 13:14 Surgical History H/O ankle fusion Social History Smoking Status: Never smoker ROS ROS ED Constitutional Constitutional ED: Reports chills and fever(s) Eyes Eyes: Denies change in vision or diplopia ENT ENT ED: Denies rhinorrhea or sore throat Cardiovascular Cardiovascular: Reports chest pain; Denies palpitations Respiratory/Chest Respiratory/Chest: Denies cough or dyspnea Gastrointestinal Gastrointestinal: Reports abdominal pain; Denies diarrhea, nausea or vomiting Genitourinary Genitourinary ED: Reports as per HPI and difficulty urinating; Denies dysuria or hematuria Musculoskeletal Musculoskeletal: Denies back pain or neck pain Integumentary Denies abscess or rash Neurologic Neurologic: Denies headache(s), paresthesias or weakness Psychiatric Psychiatric: Reports anxiety; Denies suicidal thoughts EXAM Physical Exam Const Vital Signs: 08/01/25 13:12 08/01/25 13:14 08/01/25 13:46 Temperature 99.7 F H 99.7 F H Temperature Source Oral Oral Pulse Rate 110 H 110 H Respiratory Rate 16 16 Blood Pressure 153/99 H 153/99 H Blood Pressure Mean 117 117 Pulse Ox 100 100 97 Oxygen Delivery Method Room Air Room Air Room Air 08/01/25 14:14 08/01/25 15:00 08/01/25 15:12 Temperature 99.7 F H 99.7 F H Temperature Source Oral Oral Pulse Rate 98 98 98 Respiratory Rate 15 15 15 Blood Pressure 147/83 H 145/84 H 145/84 H Blood Pressure Mean 104 104 104 Pulse Ox 98 100 100 Oxygen Delivery Method Room Air Room Air Room Air 08/01/25 16:00 Temperature 99.6 F H Temperature Source Oral Pulse Rate 88 Respiratory Rate 14 Blood Pressure 150/86 H Blood Pressure Mean 107 Pulse Ox 98 Oxygen Delivery Method Room Air Positive well nourished and well developed General Appearance ED: well developed and NAD HEENT Reports moist mucous membranes normocephalic and atraumatic Eyes PERRL and EOMs intact bilaterally Neck full ROM and supple Resp normal respiratory effort and clear to auscultation bilaterally Cardio regular rate, regular rhythm and no murmurs Rate: tachycardic GI non-tender and non-distended GI Narrative: Benign exam even with palpation throughout. No medical hernia or other hernias palpable. Auscultation: normoactive bowel sounds Palpation: soft Back/Spine no CVA tenderness General Back: other FROM Extremity normal to inspection General Extremety ED: Negative for edema, pulses abnormal or tenderness General Extremity: Negative for edema or pulses abnormal Neuro oriented x3, CN's II-XII intact bilaterally and no sensory deficits noted Sensorium / Orientation: awake and alert Motor Exam: strength 5/5 throughout Psych Psych Narrative: Tangential. Able to be redirected. Mood & Affect: anxious Skin no rashes or lesions noted and no wounds MDM MDM MDM Narrative Medical decision making narrative: 65 yo M with BPH/chronic prostatitis s/p cystoscopy now with chills, episodic mid-abdominal pain, and low-grade fever; brief anxiety-related chest discomfort resolved. On doxycycline previously; on ciprofloxacin x1 day; started alpha-marcin. Vital signs stable with low-grade temp and elevated BP; not tachycardic. PE: abdomen benign, non-tender; no flank tenderness to percussion. Leukocytosis 15 with slight left shift, no bands. UA: cloudy, high leukocyte esterase, pyuria 25?50 WBC, no bacteria seen. Troponin negative; lactate normal. Total bilirubin 2.22; other LFTs normal. Recent CT showed fatty liver. Urinary infection: likely given pyuria and esterase; absence of bacteria possibly due to recent antibiotics. Sepsis not suspected given vitals, lactate, and exam. Hyperbilirubinemia likely incidental given normal RUQ exam and prior CT. Chest pain non-ischemic with normal EKG and 2 neg troponins & nml CXR 1 v on my interpretation. Urine culture sent. Discontinue ciprofloxacin; start Macrobid (possible medication interaction with sulfamethoxazole/trimethoprim that could cause hyperkalemia so Macrobid used instead). Discharge home with close outpatient follow-up with urology (Dr. Stoddard). History & Record Review Discussion w/independent historian: Patient and Significant other Lab Data Attestation: I reviewed the patient's lab results. Labs: Laboratory Results - last 24 hr 08/01/25 08/01/25 08/01/25 13:15 14:00 15:50 WBC 15.4 H RBC 4.43 L Hgb 14.1 Hct 40.1 MCV 90.5 MCH 31.8 MCHC 35.2 RDW Std Deviation 39.8 RDW Coeff of Alex 12.0 Plt Count 245 MPV 9.5 Immature Gran % (Auto) 0.500 Neut % (Auto) 85.8 H Lymph % (Auto) 3.9 L Butler % (Auto) 9.7 Eos % (Auto) 0.0 Baso % (Auto) 0.1 Absolute Neuts (auto) 13.2 H Absolute Lymphs (auto) 0.60 L Nucleated RBC % 0 PT 14.3 INR 1.1 APTT 26.7 Sodium 135 Potassium 3.4 Chloride 99 Carbon Dioxide 21.6 Anion Gap 14 BUN 16 Creatinine 1.12 Estim Creat Clear Calc 73.28 Est GFR (MDRD) Non-Af 73 BUN/Creatinine Ratio 14.2 Glucose 128 H Lactic Acid < 1.0 Calcium 9.5 Total Bilirubin 2.22 H AST 15 ALT 16 Alkaline Phosphatase 36 L Troponin T High Sens < 6 Troponin T Hi Sens 2 Hr < 6 Total Protein 7.4 Albumin 4.5 Globulin 2.8 Albumin/Globulin Ratio 1.6 Urine Color Yellow Urine Clarity Sl. Cloudy Urine pH 6.0 Ur Specific [place] 1.020 Urine Protein 30 H Urine Glucose (UA) Normal Urine Ketones Negative Urine Occult Blood 50 H Urine Nitrite Negative Urine Bilirubin Negative Urine Urobilinogen Normal Ur Leukocyte Esterase 500 H Urine RBC 0 SEEN Urine WBC 25-50 SEEN Ur Squamous Epith Cells 0 SEEN Urine Bacteria 0 SEEN Urine Mucus 0 SEEN Radiography Diagnostic Testing: Clinical Impression(s) from Imaging Studies Chest X-Ray 08/01/25 14:05 IMPRESSION: No Acute Findings. Reading Location: [address] Rhythm Strip Rhythm Strip: Sinus Rhythm Rate: 100 Ectopy: None EKG Initial EKG: Attestation: I personally reviewed and interpreted this EKG as follows: Interpretation: No Acute Injury Pattern and Sinus Tachycardia Comments: Nml axis & intervals; nml EKG Discharge Plan Triage Chief Complaint: Complaint ED Provider: Wei Ponce Dx/Rx/DC Orders Clinical Impression: Acute cystitis without hematuria, Intermittent generalized abdominal pain, Acquired hyperbilirubinemia, Fatty liver disease, nonalcoholic, Chest pain, unspecified Instructions: NAFLD, ED Bladder Infection, Male (Adult) Prescriptions: New nitrofurantoin monohyd/m-cryst 100 mg capsule 100 mg PO Q12 Qty: 14 0RF tramadol 50 mg tablet 50 mg PO Q6H PRN (Reason: pain) 2 Days Qty: 8 0RF No Action diclofenac sodium 25 mg tablet,delayed release (DR/EC) PO Patient Comments: take 1 tablet by mouth twice a day for 28 DAYS *TAKE ON A FULL STOMACH* losartan-hydrochlorothiazide 50-12.5 mg tablet PO DAILY Primary Care Provider: Neil Emerson Referrals: Nghia Stoddard MD [Med Staff - Active Staff, Urology] - 3-5 Days if not improving Neil Emerson MD [Primary Care Provider, Medical] - 1 Week Activity Restrictions/Additional Instructions: Discontinue Cipro and doxycycline and take the new prescription instead. (Was going to be Bactrim but it can interact with one of your home medications so it is Macrobid instead.) Print Language: Kinyarwanda Disposition Disposition: Home, Self Care
[2025-08-01 13:53] LABS: Mucous, Urine 0 SEEN /hpf (<or=2+); Red Blood Cells-Urine 0 SEEN /hpf (0-5); Squamous Epithelial Cells - UA 0 SEEN /hpf (0-5)
[2025-08-01 13:56] LABS: Color, Urine Yellow (Yellow); Glucose, Dipstick Normal (Normal); Ketone-Dipstick Negative (Negative); Leukocyte Esterase-Dipstick 500 /ul (Negative); Nitrite-Dipstick Negative (Negative); Occult Blood-Urine 50 /ul (Negative); Protein-Dipstick 30 mg/dl (Negative); Specific Gravity, Urine 1.020 (1.002-1.030); Urine Bilirubin Dipstick Negative (Negative)
--- NOTE | 2025-08-01 14:05 | RAD_ITS ---
PROCEDURE: CHEST 1 VIEW (PORTABLE) 08/01/2025 REASON FOR EXAM: CHEST PAIN TECHNIQUE: Frontal view of the chest. FINDINGS: The heart is normal in size. The lungs are clear. No acute osseous abnormalities. RAD/Chest 1 View (Portable) IMPRESSION: No Acute Findings. Reading Location: [id number]
[2025-08-01 14:07] LABS: Hematocrit 40.1 % (40-54); Hemoglobin 14.1 g/dL (13.0-16.5); Immature Granulocytes Count 0.070 X10^3/uL (0.0-0.0); Mean Corp Hgb Conc 35.2 g/dL (32-36); Mean Corpuscular Volume 90.5 fL (80-94); Mean Platelet Vol. 9.5 fl (6.2-12.0); NRBC Flagged by Analyzer 0 % (0-5); POSITIVE DIFFERENTIAL YES; Platelet Count 245 K/mm3 (150-450); RBC Distribution Width CV 12.0 % (11.6-14.6); RBC Distribution Width SD 39.8 fl (35.1-43.9); Red Blood Count 4.43 M/mm3 (4.6-6.2); White Blood Count 15.4 K/mm3 (4.4-11.0)
[2025-08-01 14:15] LABS: Prothrombin Time (Protime)PT. 14.3 SECONDS (11.7-14.9)
[2025-08-01 14:16] LABS: Partial Thromboplast Time 26.7 Seconds (24.1-36.2)
[2025-08-01 14:43] LABS: AST(SGOT) 15 U/L (<=37); Alanine Aminotransfer ALT/SGPT 16 U/L (<=46); Albumin, Serum 4.5 g/dL (3.4-4.8); Alkaline Phosphatase 36 U/L (40-129); Anion Gap 14 (5-15); BUN 16 mg/dL (4-19); BUN/Creat Ratio 14.2 RATIO (10-20); Calcium,Total 9.5 mg/dL (7.6-11.0); Carbon Dioxide 21.6 mmol/L (21.0-32.0); Chloride 99 mmol/L (98-108); Estimated Creatinine Clearance 73.28 ml/min (50-250); Globulin 2.8 g/dL (2.2-4.2); Glucose 128 mg/dL (70-99); Potassium 3.4 mmol/L (3.3-5.1)
[2025-08-01 14:48] LABS: Troponin T High Sensitivity < 6 ng/L (<=22)
[2025-08-01 16:38] LABS: Troponin T High Sens 2 HR < 6 ng/L (<=22)
== END 2025-08-01 17:00 | disposition home or self-care (01) ==
PROVIDERS: Emergency Provider Emergency Medicine; PCP Family Medicine; Visit Provider Emergency Medicine
DX: N30.00 Acute cystitis without hematuria (principal); E80.6 Other disorders of bilirubin metabolism; K76.0 Fatty (change of) liver, not elsewhere classified; R07.89 Other chest pain; R10.84 Generalized abdominal pain
CPT/HCPCS: 71045; 80053; 81001; 83605; 84484; 85025; 85610; 85730; 87040; 87086; 93005; 99284; A4216